=== PATIENT | female | born 1995 | race African-American/Black ===

== ENCOUNTER 2018-01-23 23:49 | Emergency (ER) | payer OTHER, SELFPAY ==
[2018-01-24 00:40] VITALS: BP 126/92; PULSE 77; RESP 18; TEMP 36.7; O2SAT 99
--- NOTE | 2018-01-24 03:20 | ED_ITS ---
HPI - Extremity Problem General Chief complaint: Extremity Problem,Nontraumatic Stated complaint: HAVING ARTHRITIS FLARE UP Time Seen by Provider: 01/24/18 03:07 Source: patient Mode of arrival: ambulatory Limitations: no limitations History of Present Illness HPI Narrative: patient is a 22-year-old female who presents with bilateral knee pain and joint swelling. She does have a history rheumatoid arthritis she takes her medications regularly. She has been having a flare for about the last week. Her tapering machine operator started her on prednisone she took 2 doses at 7: 00 a.m. 2 days in a row and was unable to sleep. It sounds as though she has a problem with insomnia as is an takes Ambien on a regular basis however she was not able sleep despite her Ambien. She has not had any fever. She did take an oxycodone to help with pain and till let her sleep. She denies being on any pain contract she does not like the way pain medication makes her feel. MD Complaint: extremity pain Related Data Home Medications Medication Instructions Recorded Confirmed folic acid 5 mg PO QPM #0 04/07/17 methotrexate sodium 6 tab PO QWEEKTH #0 04/07/17 metoprolol succinate [Toprol XL] 50 mg PO QPM #0 04/07/17 norethindrone ac-eth estradiol 1 tab PO QPM #0 04/07/17 [Microgestin 1.5/30 (21)] piroxicam 20 mg PO QPM #0 04/07/17 bupropion HCl [Wellbutrin SR] 100 mg PO DAILY 01/24/18 01/24/18 buspirone 15 mg PO BID 01/24/18 01/24/18 tofacitinib [Xeljanz XR] 11 mg PO DAILY 01/24/18 01/24/18 zolpidem [Ambien] 10 mg PO BEDTIME PRN 01/24/18 01/24/18 Previous Rx's Medication Instructions Recorded hydrocodone-acetaminophen [[place]] 1 - 2 tab PO Q6HP PRN #12 tab 04/07/17 Allergies Allergy/AdvReac Type Severity Reaction Status Date / Time tioconazole Allergy Unknown Unverified 10/12/17 12:26 [From MONISTAT 1 (TIOCONAZOLE)] prednisone AdvReac Vomiting Verified 01/24/18 00:36 Review of Systems Review of Systems GENERAL: Denies chills, fatigue, malaise, fever, sweats, travel HEENT: Denies sinus pain, ear pain, sore throat, difficulty swallowing, neck pain RESPIRATORY: Denies dyspnea, cough, wheezing, hemoptysis, sputum. CARDIOVASCULAR: Denies chest pain, palpitations, orthopnea, edema GASTROINTESTINAL: Denies nausea, vomiting, abdominal pain, diarrhea, constipation, melena. : Denies dysuria, frequency, incontinence, hematuria, urinary retention, flank pain. MUSCULOSKELETAL: See HPI SKIN: No rash, no erythema, no pruritus NEUROLOGIC: Denies weakness, dizziness, headache, numbness, change in speech, confusion PSYCHIATRIC: No concerning psychosocial issues. 12 point review of systems is negative except for those stated above and HPI Exam Initial Vital Signs Initial Vital Signs: Vital Signs Temperature 98.0 F 01/24/18 00:40 Pulse Rate 77 01/24/18 00:40 Respiratory Rate 18 01/24/18 00:40 Blood Pressure 126/92 H 01/24/18 00:40 Pulse Oximetry 99 01/24/18 00:40 GENERAL: Well-appearing, well-nourished and in no acute distress. CARDIOVASCULAR: peripheral pulses in tact, cap refill <2 sec RESPIRATORY: No respiratory distress, speaks in full sentences without difficulty [ABDOMEN: Soft, nontender, no guarding or rebound] EXTREMITIES: Normal range of motion, no clubbing or edema. Neurovascularly intact moving all extremities without difficulty minimal swelling appreciated in knees or ankles. No erythema. Neurovascular intact NEUROLOGICAL: Cranial nerves II through XII grossly intact. Normal gait and speech. SKIN: Warm, dry, no petechiae, no rashes or lesions. Course Orders Ordered: Discontinued Medications Oxycodone/Acetaminophen (Endocet 5/325 Prepack) 1 bottle [facility] ONE Stop: 01/24/18 03:31 Last Admin: 01/24/18 03:38 Dose: 1 bottle Vital Signs - 8 hr 01/24/18 00:40 01/24/18 03:42 Temperature 98.0 F Pulse Rate 77 75 Respiratory Rate 18 18 Blood Pressure 126/92 H 120/87 H Pulse Oximetry 99 98 Discharge Plan Departure Patient Disposition: Home, Self-Care Clinical Impression: Rheumatoid arthritis Discharge Date/Time: 01/24/18 03:42 Interventions: ED Discharge Assessment Last Done: 01/24/18 03:42 Instructions: Rheumatoid Arthritis Activity Restrictions/Additional Instructions: *You have been diagnosed with rheumatoid arthritis *What to do: *Continue to take medications as directed - 1 Percocet every 6 hr if needed for severe pain *Follow up with your primary care provider in 2-3 days, follow up with her tapering machine operator for further instructions *Return to ER if you should have any new, worsening or concerning symptoms CONTROLLED SUBSTANCE DISCHARGE (Narcotoic/benzodiazepine/Flexeril/Phenergan) 1. You have been prescribed narcotic medications, it does have acetaminophen/ Tylenol/paracetamol in it so do not take extra Tylenol or Tylenol containing products 2. Please understand that we cannot provide further refills of narcotics, benzodiazepines or controlled substances through the ED and her pain management will need to be through your provider. 3. While on these medications you cannot drive or operate heavy machinery. 4. You cannot sign legal documents or perform any duties such as this. 5. As long as you're taking opiate pain medications he should also be taking a stool softener such as Colace, Dulcolax, MiraLAX or prune juice, to help avoid constipation. Prescriptions: No Action folic acid 1 MG tablet 5 mg PO QPM Qty: 0 RF: 0 piroxicam 20 MG capsule 20 mg PO QPM Qty: 0 RF: 0 norethindrone ac-eth estradiol [Microgestin 1.5/30 (21)] 1.5 MG/30 MCG tablet 1 tab PO QPM Qty: 0 RF: 0 metoprolol succinate [Toprol XL] 50 MG tablet extended release 24 hr 50 mg PO QPM Qty: 0 RF: 0 methotrexate sodium 2.5 MG tablet 6 tab PO QWEEKTH Qty: 0 RF: 0 hydrocodone-acetaminophen [[place]] 5 MG/325 MG tablet 1 - 2 tab PO Q6HP PRNQty: 12 RF: 0 bupropion HCl [Wellbutrin SR] 100 mg Tablet Extended Release 12 Hr 100 mg PO DAILY RF: 0 zolpidem [Ambien] 10 mg Tablet 10 mg PO BEDTIME PRN (Reason: Insomnia) RF: 0 buspirone 15 mg Tablet 15 mg PO BID RF: 0 tofacitinib [Xeljanz XR] 11 mg Tablet Extended Release 24 Hr 11 mg PO DAILY RF: 0 Referrals: Rebecca Khan MD [Primary Care Provider] -
[2018-01-24] MEDS: OXYCODONE/APAP 5/325 PREPACK 1 BOTTLE MISC (03:38)
[2018-01-24 03:42] VITALS: BP 120/87; PULSE 75; RESP 18; O2SAT 98
== END 2018-01-24 03:42 | disposition home or self-care (01) ==
PROVIDERS: Emergency Provider Emergency Medicine; Family Provider Family Medicine; PCP Family Medicine
DX: M06.9 Rheumatoid arthritis, unspecified (principal)
CPT/HCPCS: 99282; 99283

== ENCOUNTER 2018-06-05 10:10 | Emergency (ER) | payer OTHER, SELFPAY ==
[2018-06-05 10:10] VITALS: BP 147/119; PULSE 79; RESP 18; TEMP 36.8; O2SAT 100; BMI 36.0
--- NOTE | 2018-06-05 10:33 | PC.NURSE ---
Tender to palpation along lower thoracic spine and right flank pain. Patient reports burning pain in right hip radiating down to right knee on lateral aspect of thigh. Notes chills freezing cold one episode of vomiting this morning and currently nauseated. Some burning starting last night with urination and has not gone to bathroom today which is not normal for patient. Has had UTI in the past.
--- NOTE | 2018-06-05 10:45 | ED.EXTPRO ---
HPI - Extremity Problem General Chief complaint: Extremity Problem,Nontraumatic Stated complaint: BURNING PAIN FROM HIP TO KNEE,R SIDE Time Seen by Provider: 06/05/18 10:38 Source: patient and old records reviewed Mode of arrival: ambulatory Limitations: no limitations History of Present Illness HPI Narrative: This is a 22-year-old female comes to the emergency department with complaint of right hip and back pain. Patient states that the hip pains been going on for 1-2 weeks, last week was quite bad she took and Percocet which did not make much difference in normally does. Patient states she has known rheumatoid arthritis, she is on methotrexate and peroxicam. Patient states she has had fevers around 100 F, she states she does get joint pain but not typically in the hip and not typically this intense. She is also having some low back pain. She is also having some urinary frequency. She has had some nausea and feeling of vomiting. No abdominal pain, no chest pain and shortness of breath. Patient is not on any steroids currently. Related Data Home Medications Medication Instructions Recorded Confirmed methotrexate sodium 6 tab PO QWEEKTH #0 04/07/17 piroxicam 20 mg PO QPM #0 04/07/17 06/05/18 buspirone 15 mg PO BID 01/24/18 01/24/18 tofacitinib [Xeljanz XR] 11 mg PO DAILY 01/24/18 06/05/18 zolpidem [Ambien] 10 mg PO BEDTIME PRN 01/24/18 06/05/18 clonazepam 1 mg PO QID 06/05/18 06/05/18 escitalopram oxalate 20 mg PO DAILY 06/05/18 06/05/18 folic acid 1 - 3 mg PO DAILY 06/05/18 06/05/18 hydroxyzine pamoate 25 - 50 mg PO PRN PRN 06/05/18 06/05/18 levocetirizine 5 mg PO QPM 06/05/18 06/05/18 metoprolol succinate 50 mg PO DAILY 06/05/18 06/05/18 norethindrone-ethin estradiol 1 tab PO DAILY 06/05/18 06/05/18 [Nortrel (28)] Previous Rx's Medication Instructions Recorded hydrocodone-acetaminophen [[place]] 1 - 2 tab PO Q6HP PRN #12 tab 04/07/17 oxycodone-acetaminophen [Percocet] 1 tab PO Q4-6H PRN #5 tab 06/05/18 prednisone 40 mg PO DAILY #8 tab 06/05/18 Allergies Allergy/AdvReac Type Severity Reaction Status Date / Time tioconazole Allergy Intermediate Rash Verified 06/05/18 10:28 [From Monistat 1 (tioconazole)] Review of Systems Review of Systems All systems reviewed & are unremarkable except as noted in HPI and below Constitutional Reports fever(s) (101 F with T-max) Cardiovascular Denies chest pain and Denies dyspnea Respiratory Denies cough and Denies dyspnea Gastrointestinal Gastrointestinal: Denies abdominal pain, Denies change in bowel habits, Denies diarrhea, Reports nausea and Reports vomiting Genitourinary Denies hematuria, Reports urinary frequency, Denies dysuria, Denies pelvic pain, Denies flank pain, Denies urinary incontinence and Denies urinary urgency Musculoskeletal Reports as per HPI, Reports back pain, Reports arthralgias (Right hip) and Denies joint swelling PFSH Medical History Rheumatoid arthritis (Acute) Social History Smoking Status: Never smoker Exam Narrative Exam Narrative: GENERAL: Alert and oriented x three, well-nourished, well-appearing female in mild distress. HEENT: Head normocephalic, atraumatic, EOMI, pupils reactive, face symmetric, moist mucous membranes NECK: Supple, full range of motion CARDIOVASCULAR: Regular rate and rhythm without murmurs, rubs or gallops. RESPIRATORY: Breath sounds equal bilaterally, no wheezes rales or rhonchi. ABDOMEN: Soft, nontender. Normoactive bowel sounds all 4 quadrants. No guarding or rebound, rigidity, no mass : No CVA tenderness BACK: No cervical, thoracic or lumbar vertebral point tenderness. Patient has normal range of motion. Patient's gait is not tested. Muscle strength is 5/5 in lower extremities, 2+ dorsalis pedis and tibialis on the right. Patient has normal sensation throughout the lower extremity. Patient has tenderness over the right hip, she has normal motion no swelling or erythema over the joint or lower extremity. EXTREMITIES: Normal range of motion, no clubbing or edema. Neurovascularly intact NEUROLOGICAL: Cranial nerves II through XII grossly intact. Moving all extremities SKIN: Warm, dry, no petechiae, no rashes or lesions. Initial Vital Signs Initial Vital Signs: Vital Signs Temperature 98.3 F 06/05/18 10:10 Pulse Rate 79 06/05/18 10:10 Respiratory Rate 18 06/05/18 10:10 Blood Pressure 147/119 H 06/05/18 10:10 Pulse Oximetry 100 06/05/18 10:10 Course Orders Ordered: ED Orders 06/05/18 11:13 C-Reactive Protein Quant Stat Complete Blood Count AUTO DIFF Stat Comprehensive Metabolic Panel Stat Erythrocyte Sedimentation Rate Stat Procalcitonin Stat Discontinued Medications Ketorolac Tromethamine (Toradol) 30 mg IV NOW ONE Stop: 06/05/18 10:49 Last Admin: 06/05/18 11:04 Dose: 30 mg Morphine Sulfate (Morphine) 2 mg IV NOW ONE Stop: 06/05/18 12:10 Last Admin: 06/05/18 12:45 Dose: Not Given Morphine Sulfate (Morphine) 4 mg IM NOW ONE Stop: 06/05/18 12:17 Last Admin: 06/05/18 12:19 Dose: 4 mg Ondansetron HCl (Zofran) 4 mg IV NOW ONE Stop: 06/05/18 10:49 Last Admin: 06/05/18 11:01 Dose: 4 mg Prednisone (Deltasone) 60 mg PO NOW ONE Stop: 06/05/18 12:10 Last Admin: 06/05/18 12:18 Dose: 60 mg Vital Signs - 8 hr 06/05/18 10:10 06/05/18 12:02 Temperature 98.3 F Pulse Rate 79 71 Respiratory Rate 18 17 Blood Pressure 147/119 H Blood Pressure [Left Arm] 118/78 Pulse Oximetry 100 100 MDM - Extremity (Nontraumatic) Lab Data Attestation: I reviewed the patient's lab results. Result diagrams: 06/05/18 11:13 06/05/18 11:13 Lab Results 06/05/18 06/05/18 06/05/18 Range/Units 11:13 11:13 11:13 WBC 5.6 (4.5-11.0) X10^3/uL RBC 4.79 (4.0-5.2) X10^6/uL Hgb 15.0 (12.0-16.0) g/dL Hct 44.1 (36-46) % MCV 92.1 (80-100) fL MCH 31.2 (26-34) PG MCHC 33.9 (30-36) % RDW 12.8 (11.6-14.8) % Plt Count 274 (150-400) X10^3/uL Neut % (Auto) 61.3 (50-75) % Lymph % (Auto) 31.6 (25-40) % [place] % (Auto) 5.7 (3-14) % Eos % (Auto) 1.0 L (2-4) % Baso % (Auto) 0.4 (0-2) % Neut # (Auto) 3400 (8888-8091) /uL ESR 2 (0-20) MM/HR Sodium 143 (137-145) mmol/L Potassium 4.2 (3.4-5.1) mmol/L Chloride 105 (98-107) mmol/L Carbon Dioxide 22 (22-32) mmol/L BUN 16 (7-17) mg/dL Creatinine 0.60 (0.52-1.04) mg/dL Estimated GFR > 60.0 (>60) mL/min BUN/Creatinine Ratio 26.7 H (6-22) Glucose 93 (70-100) mg/dL Calcium 9.4 (8.4-10.2) mg/dL Total Bilirubin 0.5 (0.2-1.3) mg/dL AST 28 (14-36) IU/L ALT 39 (9-52) IU/L Alkaline Phosphatase 38 (38-126) U/L C-Reactive Protein < 0.5 (<1.0) mg/dL Total Protein 7.7 (6.3-8.2) g/dL Albumin 4.5 (3.5-5.0) g/dL Globulin 3.2 (1.7-4.1) g/dL Albumin/Globulin Ratio 1.4 (1.0-2.8) Procalcitonin < 0.05 (<0.5) ng/mL Point of Care Testing Test Results Negative Urine Dip Bedside Urine Glucose Negative Bedside Urine Bilirubin - Negative Bedside Urine Ketone - Negative Urine Specific [place] 1.030 Bedside Urine Occult Blood - Negative Bedside Urine pH 6.0 Bedside Urine Protein - Negative Bedside Urine Urobilinogen - Negative Bedside Urine Nitrite - Negative Bedside Urine Leukocytes - Negative Esterase MDM Narrative Medical decision making narrative: Patient stated she had fevers of 101 F so did do basic lab testing although I did have any physical exam findings consistent with a septic arthritis but patient would be immune suppressed with the methotrexate. Patient's CBC, CRP and procalcitonin are negative. She does have a history of rheumatoid arthritis and although she states this is not her normal location she has 1 prior visit with hip pain for same reasons. Patient had some improvement but minimal with the Toradol, she is no longer nauseated. Discussed findings and plan to continue methotrexate her piroxicam give her a few tablets of Percocet for breakthrough pain and steroids. Her IV was pulled out while she was here so we will given IM dose of morphine Um and oral prednisone. Discharge Plan Departure Patient Disposition: Home Clinical Impression: Hip pain, right Discharge Date/Time: 06/05/18 12:48 Interventions: ED Discharge Assessment Last Done: 06/05/18 12:46 Instructions: Help for Hip Pain Activity Restrictions/Additional Instructions: Follow up with your primary care/rhuematology provider in the next week for recheck. Take steroids until gone. Continue your home medications of methotrexate and piroxicam. You may take 1-2 tablets of Percocet every 6 hr as needed for pain. Return to the emergency department for persistent fevers, redness or swelling of your hip back, new weakness, new numbness, inability to lift or move your leg or other new or concerning symptoms. Prescriptions: New prednisone 20 mg tablet 40 mg PO DAILY Qty: 8 RF: 0 oxycodone-acetaminophen [Percocet] 5-325 mg tablet 1 tab PO Q4-6H PRN (Reason: pain) Qty: 5 RF: 0 No Action piroxicam 20 MG capsule 20 mg PO QPM Qty: 0 RF: 0 methotrexate sodium 2.5 MG tablet 6 tab PO QWEEKTH Qty: 0 RF: 0 hydrocodone-acetaminophen [[place]] 5 MG/325 MG tablet 1 - 2 tab PO Q6HP PRNQty: 12 RF: 0 zolpidem [Ambien] 10 mg Tablet 10 mg PO BEDTIME PRN (Reason: Insomnia) RF: 0 buspirone 15 mg Tablet 15 mg PO BID RF: 0 tofacitinib [Xeljanz XR] 11 mg Tablet Extended Release 24 Hr 11 mg PO DAILY RF: 0 clonazepam 1 mg tablet 1 mg PO QID RF: 0 folic acid 1 mg tablet 1 - 3 mg PO DAILY RF: 0 metoprolol succinate 25 mg tablet extended release 24 hr 50 mg PO DAILY RF: 0 norethindrone-ethin estradiol [Nortrel ()] 1-35 mg-mcg tablet 1 tab PO DAILY RF: 0 hydroxyzine pamoate 25 mg capsule 25 - 50 mg PO PRN PRN (Reason: panic attacks) RF: 0 escitalopram oxalate 20 mg tablet 20 mg PO DAILY RF: 0 levocetirizine 5 mg tablet 5 mg PO QPM RF: 0 Referrals: Rebecca Khan MD [Primary Care Provider] - Stand Alone Forms: Work/School Restrictions
[2018-06-05] MEDS: ONDANSETRON 4 MG/2 ML INJ IV (11:01)
[2018-06-05] MEDS: KETOROLAC 30 MG/ML VIAL IV (11:04)
[2018-06-05 11:24] LABS: Add Manual Diff / Slide Review NO; Basophils Percent Auto 0.4 % (0-2); Hematocrit 44.1 % (36-46); Lymphocytes Percent Auto 31.6 % (25-40); Mean Corpuscular HGB Conc 33.9 % (30-36); Mean Corpuscular Hemoglobin 31.2 PG (26-34); Mean Corpuscular Volume 92.1 fL (80-100); Monocytes Percent Auto 5.7 % (3-14); Neutrophils Absolute Auto 3400 /uL (3000-5900); Neutrophils Percent Auto 61.3 % (50-75); Platelet Count 274 X10^3/uL (150-400); Red Blood Cell Count 4.79 X10^6/uL (4.0-5.2); Red Cell Distribution Width 12.8 % (11.6-14.8); White Blood Cell Count 5.6 X10^3/uL (4.5-11.0)
[2018-06-05 11:40] LABS: Alanine Aminotransferase 39 IU/L (9-52); Albumin 4.5 g/dL (3.5-5.0); Albumin Globulin Ratio 1.4 (1.0-2.8); Alkaline Phosphatase 38 U/L (38-126); Aspartate Aminotransferase 28 IU/L (14-36); BUN Creatinine Ratio 26.7 (6-22); Bilirubin Total 0.5 mg/dL (0.2-1.3); Blood Urea Nitrogen 16 mg/dL (7-17); Calcium 9.4 mg/dL (8.4-10.2); Carbon Dioxide 22 mmol/L (22-32); Chloride 105 mmol/L (98-107); Estimated Glomerular Filt Rate > 60.0 mL/min (>60); Globulin 3.2 g/dL (1.7-4.1); Glucose 93 mg/dL (70-100); HEMOLYSIS 20 (0-50); Potassium 4.2 mmol/L (3.4-5.1); Sodium 143 mmol/L (137-145); Total Protein 7.7 g/dL (6.3-8.2)
[2018-06-05 11:41] LABS: C-Reactive Protein Quant < 0.5 mg/dL (<1.0)
[2018-06-05 11:53] LABS: Procalcitonin < 0.05 ng/mL (<0.5)
[2018-06-05 12:02] VITALS: BP 118/78; PULSE 71; RESP 17; O2SAT 100
[2018-06-05 12:03] LABS: Erythrocyte Sedimentation Rate 2 MM/HR (0-20)
[2018-06-05] MEDS: predniSONE 20 MG TABLET 60 MG PO (12:18)
[2018-06-05] MEDS: MORPHINE 4 MG/ML INJ IM (12:19)
== END 2018-06-05 12:48 | disposition home or self-care (01) ==
PROVIDERS: Emergency Provider Emergency Medicine; Family Provider Family Medicine; PCP Family Medicine
DX: M25.551 Pain in right hip (principal)
CPT/HCPCS: 36591; 80053; 81003; 81025; 84145; 85025; 85651; 86140; 96372; 96374; 96375; 99283; 99284; J1885; J2270; J2405

== ENCOUNTER → 2018-06-14 15:44 | Outpatient (CLI) | payer OTHER, SELFPAY ==
--- NOTE | 2018-06-14 | DI.CT.S_ITS ---
PROCEDURE: CT ABDOMEN PELVIS W CON INDICATIONS: PELVIC PAIN,Multiple endocrine neoplasia TECHNIQUE: After the administration of oral and intravenous contrast, 5 mm thick sections acquired from the diaphragms to the symphysis. 5 mm thick coronal and sagittal reformats were performed. For radiation dose reduction, the following was used: automated exposure control, adjustment of mA and/or kV according to patient size. COMPARISON: [facility], CT, ABDOMEN/PELVIS WITH CONTRAST, 12/24/2014, 22:56. FINDINGS: Image quality: Excellent. ABDOMEN: Lung bases: Lung bases are clear. Heart size is normal. Solid organs: Liver is normal in size and enhancement. Gallbladder is within normal limits. Biliary system is non-dilated. Pancreas enhances normally. Spleen is normal in size and enhancement. No adrenal nodules. Kidneys are normal in size and enhancement, without hydronephrosis. Peritoneum and bowel: A small hiatal hernia is seen. Mild fecal stasis throughout the colon is noted. Stomach, small bowel, and colon loops are normal in caliber and wall thickness. No free fluid or air. Nodes and vessels: No retroperitoneal or mesenteric adenopathy. Aorta and inferior vena cava are normal in caliber. Miscellaneous: No ventral hernias. PELVIS: Genitourinary: Bladder wall thickness is normal. No gross abnormality is seen in uterus and bilateral adnexa Miscellaneous: No inguinal hernias or adenopathy. Bones: No suspicious bony lesions. No vertebral body compression fractures. IMPRESSION: No finding to explain patient's clinical symptoms. No acute inflammatory process within the abdomen or pelvis. Dictated by: Stephen Tan M.D. on 06/15/2018 at 8:55 Approved by: Stephen Tan M.D. on 06/15/2018 at 9:04
--- NOTE | 2018-06-14 | DI.MRI.S_ITS ---
PROCEDURE: MR ABDOMEN WO/W CON INDICATIONS: Pelvic pain and history of Multiple endocrine neoplasia TECHNIQUE: Coronal HASTE, axial 2D FLASH in- and [id number]; axial breath-hold T2 FSE. Dynamic axial VIBE during the administration of contrast; post-contrast coronal VIBE or 2D FLASH with fat saturation from the hepatic dome to the iliac crests. Optional diffusion weighted imaging and ADC may be performed. COMPARISON: [facility], MR, PELVIS WITHOUT CONTRAST, 07/03/2015, 9:13. [facility], CT, CT ABDOMEN PELVIS W CON, 06/14/2018, 17:18. FINDINGS: Image quality: Excellent. Lung bases: No basal pleural effusions. Heart size is normal. Solid organs: The liver demonstrates no focal hepatic lesions the gallbladder appears within normal limits without gallstones. Biliary system is non dilated. Pancreas is normal in morphology without a discrete pancreatic mass. Spleen is normal in size and enhancement. No adrenal nodules or mass lesions. Both kidneys demonstrate normal size and enhancement, without hydronephrosis. Nodes and vessels: No retroperitoneal or mesenteric adenopathy by size criteria. Aorta and inferior vena cava are normal in size. Bowel and peritoneum: Visualized bowel loops are normal in caliber. No free fluid. Bones and soft tissues: No ventral hernias. Bone marrow is normal in overall signal. IMPRESSION: 1. No acute intra-abdominal abnormality identified. 2. No suspicious intra-abdominal mass lesions. Dictated by: Laureano Jessica M.D. on 06/15/2018 at 13:42 Approved by: Laureano Jessica M.D. on 06/15/2018 at 13:51
== END ==
PROVIDERS: Family Provider Family Medicine; PCP Family Medicine; Visit Provider Internal Medicine Endocrinology, Diabetes & Metabolism
DX: E31.21 Multiple endocrine neoplasia [MEN] type I (principal); R10.2 Pelvic and perineal pain
CPT/HCPCS: 74177; 74183; A9579; Q9967

== ENCOUNTER 2018-08-08 17:05 | Emergency (ER) | payer OTHER, SELFPAY ==
[2018-08-08 17:08] VITALS: BP 137/91; PULSE 92; RESP 18; TEMP 36.8; O2SAT 99; BMI 38.7
--- NOTE | 2018-08-08 18:20 | DI.RAD.S_ITS ---
PROCEDURE: XR CHEST 2V INDICATIONS: cough TECHNIQUE: 2 views of the chest were acquired. COMPARISON: [facility], , CHEST 2 VIEW, 04/07/2017, 18:58. FINDINGS: Surgical changes and devices: None. Lungs and pleura: Lungs are clear. No pleural effusions or pneumothorax. Mediastinum: Mediastinal contours are normal. Heart size is normal. Bones and chest wall: No suspicious bony abnormalities. Soft tissues appear unremarkable. IMPRESSION: No acute process. Dictated by: Daniel Fuentes M.D. on 08/08/2018 at 18:45 Approved by: Daniel Fuentes M.D. on 08/08/2018 at 18:45
[2018-08-08 18:26] VITALS: BP 115/74; PULSE 79; RESP 14; O2SAT 100
--- NOTE | 2018-08-08 19:01 | ED_ITS ---
HPI - URI/Sore Throat General Chief Complaint: Upper Respiratory Symptoms Stated Complaint: SOMETHING WITH LUNGS Time Seen by Provider: 08/08/18 18:35 Source: patient Mode of arrival: ambulatory Limitations: no limitations History of Present Illness HPI Narrative: patient is a 22-year-old female with history of rheumatoid arthritis presenting with fever body aches and cough ongoing for about 1 week. She states she has fever at night of 104-105 and during the day of 100.4-100.5. she is currently afebrile. She says that she feels like she is breathing in stand every time she takes a deep breath she has coughing fits. She sometimes coughs up blood-streaked sputum. She denies any cup fulls of sputum. She also is having daily frequent bloody noses. Patient was prescribed a Z-Jagdish by her PCP for upper respiratory like symptoms. She has finished this and overall does not feel any better. MD Complaint: fever, cough and nasal congestion Related Data Home Medications Medication Instructions Recorded Confirmed methotrexate sodium 6 tab PO QWEEKTH #0 04/07/17 piroxicam 20 mg PO QPM #0 04/07/17 08/08/18 buspirone 15 mg PO BID 01/24/18 01/24/18 tofacitinib [Xeljanz XR] 11 mg PO DAILY 01/24/18 08/08/18 zolpidem [Ambien] 10 mg PO BEDTIME PRN 01/24/18 08/08/18 clonazepam 1 mg PO QID 06/05/18 08/08/18 escitalopram oxalate 20 mg PO DAILY 06/05/18 08/08/18 folic acid 1 - 3 mg PO DAILY 06/05/18 06/05/18 hydroxyzine pamoate 25 - 50 mg PO PRN PRN 06/05/18 08/08/18 levocetirizine 5 mg PO QPM 06/05/18 08/08/18 metoprolol succinate 50 mg PO DAILY 06/05/18 08/08/18 norethindrone-ethin estradiol 1 tab PO DAILY 06/05/18 06/05/18 [Nortrel (28)] methotrexate (PF) [Rasuvo (PF)] 1 dose SUBCUT DIRECTED 08/08/18 08/08/18 Previous Rx's Medication Instructions Recorded hydrocodone-acetaminophen [Whiting] 1 - 2 tab PO Q6HP PRN #12 tab 04/07/17 oxycodone-acetaminophen [Percocet] 1 tab PO Q4-6H PRN #5 tab 06/05/18 prednisone 40 mg PO DAILY #8 tab 06/05/18 Allergies Allergy/AdvReac Type Severity Reaction Status Date / Time tioconazole Allergy Intermediate Rash Verified 08/08/18 17:08 [From Monistat 1 (tioconazole)] Review of Systems Review of Systems ROS Unobtainable: All systems reviewed & are unremarkable except as noted in HPI and below Constitutional Reports fatigue and Reports fever(s) Eyes Denies change in vision, Denies eye discharge, Denies irritation and Denies loss of vision Cardiovascular Denies chest pain, Denies irregular heart rhythm, Denies lightheadedness, Denies palpitations and Denies orthopnea Respiratory Reports as per HPI, Reports cough, Denies hemoptysis, Reports pain on inspiration and Reports pain with cough Gastrointestinal Gastrointestinal: Denies abdominal pain, Denies change in bowel habits, Denies diarrhea, Denies nausea and Denies vomiting Genitourinary Denies hematuria, Denies flank pain, Denies urinary incontinence and Denies urinary urgency Musculoskeletal Denies back pain, Denies muscle weakness, Denies numbness and Denies tingling Integumentary/Breasts Denies pruritus, Denies erythema, Denies rash and Denies wounds Neurologic Denies loss of vision, Denies numbness and Denies tingling Endocrine Reports fatigue and Denies palpitations PFSH Medical History Rheumatoid arthritis (Acute) Social History Smoking Status: Never smoker Social History Smoking Status: Never smoker Exam Initial Vital Signs Initial Vital Signs: Vital Signs Temperature 98.2 F 08/08/18 17:08 Pulse Rate 92 H 08/08/18 17:08 Respiratory Rate 18 08/08/18 17:08 Blood Pressure 137/91 H 08/08/18 17:08 Pulse Oximetry 99 08/08/18 17:08 GENERAL: alert well-appearing young female in no acute distress HEENT: Head atraumatic,EOMI, pupils reactive, left naris epistaxis easily controlled with pressure CARDIOVASCULAR: Regular rate and rhythm without murmurs, rubs or gallops. RESPIRATORY: Breath sounds equal bilaterally, no wheezes rales or rhonchi. Coughing with deep breathing no respiratory distress ABDOMEN: Soft, nontender. Normoactive bowel sounds all 4 quadrants. No guarding or rebound. EXTREMITIES: Normal range of motion, no clubbing or edema. Neurovascularly intact NEUROLOGICAL: Alert and oriented x4.Normal gait and speech. SKIN: Warm, dry, no laceration, no petechiae, no rashes or lesions. Course Orders Ordered: ED Orders 08/08/18 18:20 XR chest 2V Stat 08/08/18 19:25 Basic Metabolic Panel Stat Complete Blood Count AUTO DIFF Stat Discontinued Medications Acetaminophen (Tylenol) 650 mg PO NOW ONE Stop: 08/08/18 19:59 Last Admin: 08/08/18 20:15 Dose: 650 mg Albuterol (Ventolin) 2.5 mg INH NOW ONE Stop: 08/08/18 19:07 Last Admin: 08/08/18 19:26 Dose: 2.5 mg Albuterol (Ventolin Hfa Prepack) 1 box MISC SEEINSTR ONE Stop: 08/08/18 19:59 Last Admin: 08/08/18 20:15 Dose: 1 box Vital Signs - 8 hr 08/08/18 17:08 08/08/18 18:26 08/08/18 19:29 Temperature 98.2 F Pulse Rate 92 H 79 Respiratory Rate 18 14 Blood Pressure 137/91 H Blood Pressure [Left Arm] 115/74 Pulse Oximetry 99 100 100 08/08/18 19:55 Temperature Pulse Rate 92 H Respiratory Rate 15 Blood Pressure Blood Pressure [Left Arm] 137/116 H Pulse Oximetry 100 MDM - URI/Sore Throat Lab Data Attestation: I reviewed the patient's lab results. Result diagrams: 08/08/18 19:25 08/08/18 19:25 Lab Results 08/08/18 08/08/18 Range/Units 19:25 19:25 WBC 5.9 (4.5-11.0) X10^3/uL RBC 4.55 (4.0-5.2) X10^6/uL Hgb 14.2 (12.0-16.0) g/dL Hct 41.3 (36-46) % MCV 90.7 (80-100) fL MCH 31.3 (26-34) PG MCHC 34.5 (30-36) % RDW 13.3 (11.6-14.8) % Plt Count 299 (150-400) X10^3/uL Neut % (Auto) 59.4 (50-75) % Lymph % (Auto) 28.9 (25-40) % [place] % (Auto) 8.3 (3-14) % Eos % (Auto) 2.9 (2-4) % Baso % (Auto) 0.5 (0-2) % Neut # (Auto) 3500 (4910-4324) /uL Lymph # (Auto) 1700 (7877-4748) /uL [place] # (Auto) 500 (0-900) /uL Eos # (Auto) 200 (0-450) /uL Baso # (Auto) 0 (0-100) /uL Sodium 136 L (137-145) mmol/L Potassium 3.9 (3.4-5.1) mmol/L Chloride 101 (98-107) mmol/L Carbon Dioxide 28 (22-32) mmol/L BUN 17 (7-17) mg/dL Creatinine 0.70 (0.52-1.04) mg/dL Estimated GFR > 60.0 (>60) mL/min BUN/Creatinine Ratio 24.3 H (6-22) Glucose 106 H (70-100) mg/dL Calcium 9.2 (8.4-10.2) mg/dL Imaging Data Chest x-ray: Radiologist's impression: PROCEDURE: XR CHEST 2V INDICATIONS: cough TECHNIQUE: 2 views of the chest were acquired. COMPARISON: [facility], , CHEST 2 VIEW, 04/07/2017, 18:58. FINDINGS: Surgical changes and devices: None. Lungs and pleura: Lungs are clear. No pleural effusions or pneumothorax. Mediastinum: Mediastinal contours are normal. Heart size is normal. Bones and chest wall: No suspicious bony abnormalities. Soft tissues appear unremarkable. IMPRESSION: No acute process. Dictated by: Daniel Fuentes M.D. on 08/08/2018 at 18:45 MDM Narrative Medical decision making narrative: Patient's breathing did actually improve after albuterol. Although she still is complaining of some chest discomfort. She is not hypoxic. She actually does have inhalers at home with a spacer although her albuterol recently . She is not neutropenic her blood work within normal limits no sign of pneumonia. She has been having symptoms ongoing for 1 week she is of treatment range even if she had influenza. At this time I think sinus symptoms consistent with viral syndrome. Discharge Plan Departure Patient Disposition: Home Clinical Impression: Bronchitis Discharge Date/Time: 08/08/18 20:36 Interventions: ED Discharge Assessment Last Done: 08/08/18 20:34 Instructions: Acute Bronchitis Activity Restrictions/Additional Instructions: *You have been diagnosed with bronchitis *What to do: the at this time no indication for any Antibiotics. rest, hydrate. X ray negative for pneumonia *Continue to take medications as directed recommend limiting your Tylenol intake however if you should need a little extra during this time, you should be okay just have her liver enzymes rechecked 650 mg every 6 hr if needed for pain or fever. Do not exceed more than 3, 000 grams in 24 - albuterol 1-2 puffs every 4 hr if needed for coughing episodes or chest tightness *Follow up with your primary care provider in 2-3 days *Return to ER if you should have increased difficulty breathing, worsening chest pain, or any new, worsening or concerning symptoms Prescriptions: No Action piroxicam 20 MG capsule 20 mg PO QPM Qty: 0 RF: 0 methotrexate sodium 2.5 MG tablet 6 tab PO QWEEKTH Qty: 0 RF: 0 hydrocodone-acetaminophen [Whiting] 5 MG/325 MG tablet 1 - 2 tab PO Q6HP PRNQty: 12 RF: 0 zolpidem [Ambien] 10 mg Tablet 10 mg PO BEDTIME PRN (Reason: Insomnia) RF: 0 buspirone 15 mg Tablet 15 mg PO BID RF: 0 tofacitinib [Xeljanz XR] 11 mg Tablet Extended Release 24 Hr 11 mg PO DAILY RF: 0 clonazepam 1 mg tablet 1 mg PO QID RF: 0 folic acid 1 mg tablet 1 - 3 mg PO DAILY RF: 0 metoprolol succinate 25 mg tablet extended release 24 hr 50 mg PO DAILY RF: 0 norethindrone-ethin estradiol [Nortrel (28)] 1-35 mg-mcg tablet 1 tab PO DAILY RF: 0 hydroxyzine pamoate 25 mg capsule 25 - 50 mg PO PRN PRN (Reason: panic attacks) RF: 0 escitalopram oxalate 20 mg tablet 20 mg PO DAILY RF: 0 levocetirizine 5 mg tablet 5 mg PO QPM RF: 0 prednisone 20 mg tablet 40 mg PO DAILY Qty: 8 RF: 0 oxycodone-acetaminophen [Percocet] 5-325 mg tablet 1 tab PO Q4-6H PRN (Reason: pain) Qty: 5 RF: 0 methotrexate (PF) [Rasuvo (PF)] 25 mg/0.5 mL auto-injector 1 dose subcut DIRECTED RF: 0 Referrals: Rebecca Khan MD [Primary Care Provider] -
[2018-08-08] MEDS: ALBUTEROL 2.5 MG/3 ML NEB (ADULT) INH (19:26)
[2018-08-08 19:29] VITALS: O2SAT 100
[2018-08-08 19:31] LABS: Add Manual Diff / Slide Review NO; Basophils Absolute Auto 0 /uL (0-100); Basophils Percent Auto 0.5 % (0-2); Eosinophils Absolute Auto 200 /uL (0-450); Eosinophils Percent Auto 2.9 % (2-4); Hematocrit 41.3 % (36-46); Hemoglobin 14.2 g/dL (12.0-16.0); Lymphocytes Absolute Auto 1700 /uL (1100-4500); Lymphocytes Percent Auto 28.9 % (25-40); Mean Corpuscular HGB Conc 34.5 % (30-36); Mean Corpuscular Hemoglobin 31.3 PG (26-34); Mean Corpuscular Volume 90.7 fL (80-100); Monocytes Absolute Auto 500 /uL (0-900); Monocytes Percent Auto 8.3 % (3-14); Neutrophils Absolute Auto 3500 /uL (1500-7000); Neutrophils Percent Auto 59.4 % (50-75); Platelet Count 299 X10^3/uL (150-400); Red Blood Cell Count 4.55 X10^6/uL (4.0-5.2); Red Cell Distribution Width 13.3 % (11.6-14.8); White Blood Cell Count 5.9 X10^3/uL (4.5-11.0)
[2018-08-08 19:55] VITALS: BP 137/116; PULSE 92; RESP 15; O2SAT 100
[2018-08-08 19:57] LABS: BUN Creatinine Ratio 24.3 (6-22); Blood Urea Nitrogen 17 mg/dL (7-17); Calcium 9.2 mg/dL (8.4-10.2); Carbon Dioxide 28 mmol/L (22-32); Chloride 101 mmol/L (98-107); Estimated Glomerular Filt Rate > 60.0 mL/min (>60); Glucose 106 mg/dL (70-100); HEMOLYSIS < 15 (0-50); Potassium 3.9 mmol/L (3.4-5.1); Sodium 136 mmol/L (137-145)
[2018-08-08] MEDS: ALBUTEROL HFA PREPACK 1 BOX MISC (20:15)
[2018-08-08] MEDS: ACETAMINOPHEN 325 MG TABLET 650 MG PO (20:15)
== END 2018-08-08 20:36 | disposition home or self-care (01) ==
PROVIDERS: Emergency Provider Emergency Medicine; Family Provider Family Medicine; PCP Family Medicine
DX: J40 Bronchitis, not specified as acute or chronic (principal)
CPT/HCPCS: 36591; 71046; 80048; 85025; 94640; 99282; 99284; J7613

== ENCOUNTER 2018-09-06 10:28 | Emergency (ER) | payer OTHER, SELFPAY ==
[2018-09-06 10:35] VITALS: BP 125/87; PULSE 77; RESP 18; TEMP 37.1; O2SAT 98; BMI 37.2
--- NOTE | 2018-09-06 11:04 | ED.ABDPAIN ---
HPI - Abdominal Pain General Chief Complaint: Abdominal Pain Stated Complaint: severe lower abdomina pain rt side, spreading Time Seen by Provider: 09/06/18 10:58 Source: patient Mode of arrival: ambulatory Limitations: no limitations History of Present Illness HPI narrative: Patient is a 23-year-old female with a known history of endometriosis. Is currently on control for this. She is here for evaluation of right lower quadrant abdominal pain. She states this is different than her endometriosis pain. She states it is a sharp pain. Started within the past several hours. Had some nausea and vomiting with it. No urinary symptoms. Does have some constipation. No fevers. Related Data Home Medications Medication Instructions Recorded Confirmed piroxicam 20 mg PO DAILY #0 04/07/17 09/06/18 tofacitinib [Xeljanz XR] 11 mg PO QPM 01/24/18 09/06/18 zolpidem [Ambien] 10 mg PO BEDTIME 01/24/18 09/06/18 clonazepam 1 mg PO QID PRN 06/05/18 09/06/18 escitalopram oxalate 20 mg PO QPM 06/05/18 09/06/18 folic acid 1 - 3 mg PO QPM 06/05/18 09/06/18 hydroxyzine pamoate 25 - 50 mg PO PRN PRN 06/05/18 09/06/18 levocetirizine 5 mg PO QPM 06/05/18 09/06/18 metoprolol succinate 50 mg PO QPM 06/05/18 09/06/18 methotrexate (PF) [Rasuvo (PF)] 1 dose SUBCUT FR 08/08/18 09/06/18 norethindrone-ethin estradiol 1 tab PO QPM 09/06/18 09/06/18 [Nortrel 1/35 (28)] oxycodone-acetaminophen 1 tab PO Q6H PRN 09/06/18 09/06/18 Allergies Allergy/AdvReac Type Severity Reaction Status Date / Time tioconazole Allergy Intermediate Rash Verified 09/06/18 10:42 [From Monistat 1 (tioconazole)] Review of Systems Constitutional Denies fever(s) Cardiovascular Denies chest pain and Denies dyspnea Respiratory Denies dyspnea Gastrointestinal Gastrointestinal: Reports abdominal pain, Reports constipation, Reports nausea and Reports vomiting Genitourinary Denies dysuria Musculoskeletal Denies myalgias and Denies arthralgias Integumentary/Breasts Denies rash Neurologic Denies behavioral changes Psychiatric Denies behavioral changes Hematologic/Lymphatic Denies easy bleeding and Denies easy bruising PFSH Medical History Rheumatoid arthritis (Acute) Social History Smoking Status: Never smoker Social History Smoking Status: Never smoker Exam Initial Vital Signs Initial Vital Signs: Vital Signs Temperature 98.7 F 09/06/18 10:35 Pulse Rate 77 09/06/18 10:35 Respiratory Rate 18 09/06/18 10:35 Blood Pressure 125/87 09/06/18 10:35 Pulse Oximetry 98 09/06/18 10:35 Const General: cooperative, healthy appearing, comfortable, well developed, well groomed and No acute distress Orientation: alert, awake and oriented x3 HENMT Head: normal to inspection and normocephalic Resp Effort & Inspection: normal respiratory effort Cardio Rate: regular rate GI Inspection: non-distended Palpation: soft, No firm, guarding and tender (Right lower quadrant) Skin Lesions: no lesions Rashes: no rashes Neuro General: alert, awake and oriented x3 Cognition: normal cognition Speech: speech normal Extrem General: normal to inspection and capillary refill normal Psych Appearance: grossly normal and well kempt Course Orders Ordered: ED Orders 09/06/18 11:24 Complete Blood Count AUTO DIFF Stat Comprehensive Metabolic Panel Stat Lipase Stat 09/06/18 11:30 CT abdomen pelvis w con Stat 09/06/18 11:46 US pelvic complete Stat Discontinued Medications Sodium Chloride (Normal Saline 0.9%) 1,000 mls @ 1,000 mls/hr IV BOLUS ONE Stop: 09/06/18 12:07 Last Admin: 09/06/18 11:34 Dose: 1,000 mls/hr Morphine Sulfate (Morphine) 4 mg IV NOW ONE Stop: 09/06/18 11:09 Last Admin: 09/06/18 11:34 Dose: 4 mg Ondansetron HCl (Zofran) 4 mg IV NOW ONE Stop: 09/06/18 11:09 Last Admin: 09/06/18 11:34 Dose: 4 mg Vital Signs - 8 hr 09/06/18 10:35 09/06/18 12:24 Temperature 98.7 F Pulse Rate 77 84 Respiratory Rate 18 17 Blood Pressure 125/87 Blood Pressure [Left Arm] 127/88 Pulse Oximetry 98 99 MDM - Abdominal Pain Lab Data Attestation: I reviewed the patient's lab results. Result diagrams: 09/06/18 11:24 09/06/18 11:24 Lab Results 09/06/18 09/06/18 Range/Units 11:24 11:24 WBC 5.3 (4.5-11.0) X10^3/uL RBC 4.98 (4.0-5.2) X10^6/uL Hgb 15.1 (12.0-16.0) g/dL Hct 44.8 (36-46) % MCV 89.9 (80-100) fL MCH 30.3 (26-34) PG MCHC 33.6 (30-36) % RDW 12.6 (11.6-14.8) % Plt Count 307 (150-400) X10^3/uL Neut % (Auto) 65.6 (50-75) % Lymph % (Auto) 23.6 L (25-40) % [place] % (Auto) 8.5 (3-14) % Eos % (Auto) 1.5 L (2-4) % Baso % (Auto) 0.8 (0-2) % Neut # (Auto) 3500 (7164-1287) /uL Lymph # (Auto) 1300 (9583-6813) /uL [place] # (Auto) 500 (0-900) /uL Eos # (Auto) 100 (0-450) /uL Baso # (Auto) 0 (0-100) /uL Sodium 138 (137-145) mmol/L Potassium 4.3 (3.4-5.1) mmol/L Chloride 102 (98-107) mmol/L Carbon Dioxide 25 (22-32) mmol/L BUN 18 H (7-17) mg/dL Creatinine 0.80 (0.52-1.04) mg/dL Estimated GFR > 60.0 (>60) mL/min BUN/Creatinine Ratio 22.5 H (6-22) Glucose 92 (70-100) mg/dL Calcium 9.5 (8.4-10.2) mg/dL Total Bilirubin 0.6 (0.2-1.3) mg/dL AST 27 (14-36) IU/L ALT 45 (9-52) IU/L Alkaline Phosphatase 42 (38-126) U/L Total Protein 7.7 (6.3-8.2) g/dL Albumin 4.5 (3.5-5.0) g/dL Globulin 3.2 (1.7-4.1) g/dL Albumin/Globulin Ratio 1.4 (1.0-2.8) Lipase 58 (23-300) U/L Point of care testing: Point of Care Testing Test Results Negative Urine Dip Bedside Urine Glucose Negative Bedside Urine Bilirubin - Negative Bedside Urine Ketone - Negative Urine Specific [place] 1.025 Bedside Urine Occult Blood +/- Bedside Urine pH 6.0 Bedside Urine Protein +/- 15 Bedside Urine Urobilinogen - Negative Bedside Urine Nitrite - Negative Bedside Urine Leukocytes - Negative Esterase Imaging Data CT scan - abdomen: Radiologist's impression: PROCEDURE: CT ABDOMEN PELVIS W CON INDICATIONS: Right-sided abdominal pain TECHNIQUE: After the administration of intravenous contrast, 5 mm thick sections acquired from the diaphragm to the symphysis. 5 mm coronal and sagittal reformats were acquired. For radiation dose reduction, the following was used: automated exposure control, adjustment of mA and/or kV according to patient size. COMPARISON: [facility], CT, CT ABDOMEN PELVIS W CON, 06/14/2018, 17:18. FINDINGS: Image quality: Excellent. ABDOMEN: Lung bases: Lung bases are clear. Heart size is normal. Solid organs: Liver is normal in size and enhancement. Gallbladder is within normal limits. Biliary system is non dilated. Pancreas enhances normally. Spleen is normal in size and enhancement. No adrenal nodules. Kidneys demonstrate normal size and enhancement, without hydronephrosis. Peritoneum and bowel: Bowel loops demonstrate normal wall thickness and caliber. No free fluid or air. Normal appendix. Nodes and vessels: No retroperitoneal or mesenteric adenopathy by size criteria. Aorta and inferior vena cava are normal in size. Miscellaneous: No ventral hernias. PELVIS: Genitourinary: Urinary bladder is decompressed. Miscellaneous: No inguinal hernias or adenopathy. Bones: No suspicious bony lesions. No vertebral body compression fractures. IMPRESSION: 1. No acute process. 2. Normal appendix. Dictated by: Daniel Fuentes M.D. on 09/06/2018 at 11:40 Approved by: Daniel Fuentes M.D. on 09/06/2018 at 11:42 US - abdomen: Radiologist's impression: [address] [address] Ultrasound Report Signed Patient: Kaylin Stevenson EMR#: [id number] : 1995Acct:[id number] Age/Sex: 23 / FDate of Service: 09/06/18 Loc: ED Accession Number: [id number] Procedure: US pelvic complete Ordering Provider: Oli Gonzalez D.O. PROCEDURE: US PELVIC COMPLETE INDICATIONS: RIGHT ADNEXAL PAIN TECHNIQUE: Real-time scanning was performed of the pelvic organs, with image documentation. Additional endovaginal scanning was necessary due to incomplete visualization of the adnexal and endometrial structures by transabdominal scanning. COMPARISON: [facility], PELVIC COMPLETE, 09/06/2017, 12:38. [facility], , PELVIC COMPLETE, 08/13/2015, 19:00. FINDINGS: Transabdominal scanning: Limited scanning through the kidneys shows no hydronephrosis. No pathologic free abdominal or pelvic fluid. Endovaginal scanning: Uterus: Uterus is normal in size at 3.5 x 4.4 x 7.2 cm, anteverted. The endometrium measures 5.4 mm in combined thickness. Ovaries: Ovaries appear normal bilaterally. IMPRESSION: Normal endometrial lining thickness, anteverted uterus, no pelvic inflammation or mass is identified. Dictated by: Robby Calix M.D. on 09/06/2018 at 12:56 Approved by: Robby Calix M.D. on 09/06/2018 at 12:59 [facility] Narrative Medical decision making narrative: CT scan unremarkable, ultrasound unremarkable, labs unremarkable, no evidence of appendicitis, gallbladder pathology, ovarian torsion. No indication for antibiotics. Patient has pain medication at home. Hold on further workup for now. Patient was given return precautions. She expressed understanding and agreement with plan. Discharge Plan Departure Patient Disposition: Home Clinical Impression: Abdominal pain Qualifiers: Abdominal location: right lower quadrant Qualified Code(s): R10.31 - Right lower quadrant pain Instructions: DI for Abdominal Pain-Adult Activity Restrictions/Additional Instructions: Continue all of your medications as directed. Contact your primary provider for any further pain management and also your surgeon to discuss your visit today. Return to the emergency department for any new symptoms. Prescriptions: No Action piroxicam 20 MG capsule 20 mg PO DAILY Qty: 0 RF: 0 zolpidem [Ambien] 10 mg Tablet 10 mg PO BEDTIME RF: 0 Xeljanz XR 11 mg Tablet Extended Release 24 Hr 11 mg PO QPM RF: 0 clonazepam 1 mg tablet 1 mg PO QID PRN (Reason: Anxiety) RF: 0 folic acid 1 mg tablet 1 - 3 mg PO QPM RF: 0 metoprolol succinate 25 mg tablet extended release 24 hr 50 mg PO QPM RF: 0 hydroxyzine pamoate 25 mg capsule 25 - 50 mg PO PRN PRN (Reason: panic attacks) RF: 0 escitalopram oxalate 20 mg tablet 20 mg PO QPM RF: 0 levocetirizine 5 mg tablet 5 mg PO QPM RF: 0 Rasuvo (PF) 25 mg/0.5 mL auto-injector 1 dose subcut FR RF: 0 oxycodone-acetaminophen 10-325 mg tablet 1 tab PO Q6H PRN (Reason: Pain, Severe) RF: 0 Nortrel 1/35 (28) 1-35 mg-mcg tablet 1 tab PO QPM RF: 0 Referrals: Rebecca Khan MD [Primary Care Provider] -
--- NOTE | 2018-09-06 11:30 | DI.CT.S_ITS ---
PROCEDURE: CT ABDOMEN PELVIS W CON INDICATIONS: Right-sided abdominal pain TECHNIQUE: After the administration of intravenous contrast, 5 mm thick sections acquired from the diaphragm to the symphysis. 5 mm coronal and sagittal reformats were acquired. For radiation dose reduction, the following was used: automated exposure control, adjustment of mA and/or kV according to patient size. COMPARISON: [facility], CT, CT ABDOMEN PELVIS W CON, 06/14/2018, 17:18. FINDINGS: Image quality: Excellent. ABDOMEN: Lung bases: Lung bases are clear. Heart size is normal. Solid organs: Liver is normal in size and enhancement. Gallbladder is within normal limits. Biliary system is non dilated. Pancreas enhances normally. Spleen is normal in size and enhancement. No adrenal nodules. Kidneys demonstrate normal size and enhancement, without hydronephrosis. Peritoneum and bowel: Bowel loops demonstrate normal wall thickness and caliber. No free fluid or air. Normal appendix. Nodes and vessels: No retroperitoneal or mesenteric adenopathy by size criteria. Aorta and inferior vena cava are normal in size. Miscellaneous: No ventral hernias. PELVIS: Genitourinary: Urinary bladder is decompressed. Miscellaneous: No inguinal hernias or adenopathy. Bones: No suspicious bony lesions. No vertebral body compression fractures. IMPRESSION: 1. No acute process. 2. Normal appendix. Dictated by: Daniel Fuentes M.D. on 09/06/2018 at 11:40 Approved by: Daniel Fuentes M.D. on 09/06/2018 at 11:42
[2018-09-06 11:32] LABS: Add Manual Diff / Slide Review NO; Basophils Absolute Auto 0 /uL (0-100); Basophils Percent Auto 0.8 % (0-2); Eosinophils Absolute Auto 100 /uL (0-450); Eosinophils Percent Auto 1.5 % (2-4); Hematocrit 44.8 % (36-46); Hemoglobin 15.1 g/dL (12.0-16.0); Lymphocytes Absolute Auto 1300 /uL (1100-4500); Lymphocytes Percent Auto 23.6 % (25-40); Mean Corpuscular HGB Conc 33.6 % (30-36); Mean Corpuscular Hemoglobin 30.3 PG (26-34); Mean Corpuscular Volume 89.9 fL (80-100); Monocytes Absolute Auto 500 /uL (0-900); Monocytes Percent Auto 8.5 % (3-14); Neutrophils Absolute Auto 3500 /uL (1500-7000); Neutrophils Percent Auto 65.6 % (50-75); Platelet Count 307 X10^3/uL (150-400); Red Blood Cell Count 4.98 X10^6/uL (4.0-5.2); Red Cell Distribution Width 12.6 % (11.6-14.8); White Blood Cell Count 5.3 X10^3/uL (4.5-11.0)
[2018-09-06] MEDS: SODIUM CHLORIDE 0.9% 1,000 ML 1000 ML IV (11:34)
[2018-09-06] MEDS: ONDANSETRON 4 MG/2 ML INJ IV (11:34)
[2018-09-06] MEDS: MORPHINE 4 MG/ML INJ IV (11:34)
--- NOTE | 2018-09-06 11:46 | DI.US.S_ITS ---
PROCEDURE: US PELVIC COMPLETE INDICATIONS: RIGHT ADNEXAL PAIN TECHNIQUE: Real-time scanning was performed of the pelvic organs, with image documentation. Additional endovaginal scanning was necessary due to incomplete visualization of the adnexal and endometrial structures by transabdominal scanning. COMPARISON: [facility], , PELVIC COMPLETE, 09/06/2017, 12:38. [facility], , PELVIC COMPLETE, 08/13/2015, 19:00. FINDINGS: Transabdominal scanning: Limited scanning through the kidneys shows no hydronephrosis. No pathologic free abdominal or pelvic fluid. Endovaginal scanning: Uterus: Uterus is normal in size at 3.5 x 4.4 x 7.2 cm, anteverted. The endometrium measures 5.4 mm in combined thickness. Ovaries: Ovaries appear normal bilaterally. IMPRESSION: Normal endometrial lining thickness, anteverted uterus, no pelvic inflammation or mass is identified. Dictated by: Robby Calix M.D. on 09/06/2018 at 12:56 Approved by: Robby Calix M.D. on 09/06/2018 at 12:59
[2018-09-06 11:48] LABS: Alanine Aminotransferase 45 IU/L (9-52); Albumin 4.5 g/dL (3.5-5.0); Albumin Globulin Ratio 1.4 (1.0-2.8); Alkaline Phosphatase 42 U/L (38-126); Aspartate Aminotransferase 27 IU/L (14-36); BUN Creatinine Ratio 22.5 (6-22); Bilirubin Total 0.6 mg/dL (0.2-1.3); Blood Urea Nitrogen 18 mg/dL (7-17); Calcium 9.5 mg/dL (8.4-10.2); Carbon Dioxide 25 mmol/L (22-32); Chloride 102 mmol/L (98-107); Estimated Glomerular Filt Rate > 60.0 mL/min (>60); Globulin 3.2 g/dL (1.7-4.1); Glucose 92 mg/dL (70-100); HEMOLYSIS < 15 (0-50); Lipase 58 U/L (23-300); Potassium 4.3 mmol/L (3.4-5.1); Sodium 138 mmol/L (137-145); Total Protein 7.7 g/dL (6.3-8.2)
[2018-09-06 12:24] VITALS: BP 127/88; PULSE 84; RESP 17; O2SAT 99
[2018-09-06 13:41] VITALS: BP 113/71; PULSE 70; RESP 17; TEMP 37.2; O2SAT 100
== END 2018-09-06 13:47 | disposition home or self-care (01) ==
PROVIDERS: Emergency Provider Emergency Medicine; PCP Family Medicine
DX: R10.31 Right lower quadrant pain (principal)
CPT/HCPCS: 36591; 74177; 76830; 76856; 80053; 81003; 81025; 83690; 85025; 96361; 96374; 96375; 99283; 99285; J2270; J2405; Q9967

== ENCOUNTER 2018-10-02 13:00 | Emergency (ER) | payer OTHER, SELFPAY ==
[2018-10-02 13:17] VITALS: BP 130/85; PULSE 89; RESP 16; TEMP 36.8; O2SAT 98; BMI 39.1
--- NOTE | 2018-10-02 14:53 | ED.ABDPAIN ---
HPI - Abdominal Pain <LIANE Rader - Last Filed: 10/02/18 22:15> General Chief Complaint: Abdominal Pain Stated Complaint: surgery 2wks ago,endomitriosis,bleeding Time Seen by Provider: 10/02/18 14:44 Source: patient Mode of arrival: ambulatory Limitations: no limitations History of Present Illness HPI narrative: 23-year-old female with history of rheumatoid arthritis here for complaint of having vaginal bleeding and cramping with also rectal bleeding for the past 2 weeks. She states that she had surgery done by [facility] for ablation of endometriosis that was done laparoscopically. She denies any fevers or chills. she denies any urinary symptoms. She states that her last menstrual period was approximately 7 years ago as she has been on control. 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 She reports that they have also put her referral and to see but ago [facility] Dr. Gonzales which has not happened as of yet. She denies any stressors relievers of her symptoms. She denies any abdominal pain. No flank pain. MD complaint: other Related Data Home Medications Medication Instructions Recorded Confirmed piroxicam 20 mg PO DAILY #0 04/07/17 10/02/18 tofacitinib [Xeljanz XR] 11 mg PO QPM 01/24/18 10/02/18 zolpidem [Ambien] 10 mg PO BEDTIME PRN 01/24/18 10/02/18 clonazepam 1 mg PO QID PRN 06/05/18 09/06/18 escitalopram oxalate 20 mg PO QPM 06/05/18 10/02/18 folic acid 1 - 3 mg PO QPM 06/05/18 10/02/18 hydroxyzine pamoate 25 - 50 mg PO PRN PRN 06/05/18 10/02/18 levocetirizine 5 mg PO QPM 06/05/18 10/02/18 metoprolol succinate 50 mg PO QPM 06/05/18 10/02/18 methotrexate (PF) [Rasuvo (PF)] 1 dose SUBCUT FR 08/08/18 09/06/18 norethindrone-ethin estradiol 1 tab PO QPM 09/06/18 10/02/18 [Nortrel (28)] oxycodone-acetaminophen 1 tab PO Q6H PRN 09/06/18 10/02/18 gabapentin 100 - 300 mg PO TID PRN 10/02/18 10/02/18 norethindrone-ethin estradiol 10/02/18 [Nortrel (28)] ondansetron 8 mg PO TID PRN 10/02/18 10/02/18 oxycodone 5 - 10 mg PO Q4H PRN 10/02/18 10/02/18 Previous Rx's Medication Instructions Recorded hydrocodone-acetaminophen [[place]] 1 tab PO Q6H PRN #10 tab 10/02/18 Allergies Allergy/AdvReac Type Severity Reaction Status Date / Time tioconazole Allergy Intermediate Rash Verified 10/02/18 13:20 [From Monistat 1 (tioconazole)] Review of Systems <LIANE Rader - Last Filed: 10/02/18 22:15> Constitutional Denies chills, Denies fever(s), Denies lethargy and Denies weakness Eyes Denies change in vision, Denies eye discharge, Denies irritation and Denies loss of vision ENT Ears, Nose, Mouth, and Throat: Denies change in voice, Denies neck pain and Denies sore throat Cardiovascular Denies chest pain, Denies irregular heart rhythm, Denies lightheadedness, Denies palpitations, Denies dyspnea, Denies dyspnea on exertion and Denies orthopnea Respiratory Denies cough, Denies dyspnea, Denies dyspnea on exertion and Denies wheezing Gastrointestinal Gastrointestinal: Denies abdominal pain, Denies change in bowel habits, Denies diarrhea, Denies nausea and Denies vomiting Genitourinary Comments: Vaginal and rectal bleeding with pubic cramping for last couple of weeks status post surgery Musculoskeletal Denies neck pain Integumentary/Breasts Denies pruritus, Denies erythema, Denies rash and Denies wounds Neurologic Denies confusion, Denies loss of vision and Denies weakness Psychiatric Denies anxiety, Denies confusion, Denies depression, Denies homicidal ideation and Denies suicidal ideation Endocrine Denies palpitations Hematologic/Lymphatic Denies easy bruising Allergic/Immunologic Denies wheezing PFSH <LIANE Rader - Last Filed: 10/02/18 22:15> Medical History Rheumatoid arthritis (Acute) Social History Smoking Status: Never smoker Social History Smoking Status: Never smoker Exam <LIANE Rader - Last Filed: 10/02/18 22:15> Initial Vital Signs Initial Vital Signs: Vital Signs Temperature 98.2 F 10/02/18 13:17 Pulse Rate 89 10/02/18 13:17 Respiratory Rate 16 10/02/18 13:17 Blood Pressure 130/85 10/02/18 13:17 Pulse Oximetry 98 10/02/18 13:17 Const General: cooperative and well developed Nutritional Appearance: well nourished Orientation: alert, awake, oriented x3 and not confused HENMT Mouth: oral mucosae normal and moist mucous membranes Eyes Conjunctivae: conjunctivae normal Sclera: sclerae normal Pupils: PERRL EOM: EOM intact bilaterally Resp Effort & Inspection: normal respiratory effort, able to speak in complete sentences, no respiratory distress and no use of accessory muscles Auscultation: clear to auscultation bilaterally, no rales, no rhonchi and no wheezes Cardio Rate: regular rate Rhythm: regular rhythm Heart Sounds: no click, no gallops, no murmurs and no rubs Pulses: normal peripheral pulses GI Inspection: non-distended Palpation: soft, no hepatosplenomegaly, No guarding, No pulsatile mass and tender (Tenderness to suprapubic region) Auscultation: normal bowel sounds Rectal Exam: visual inspection normal, normal sphincter tone and heme negative stool General: No CVA tenderness External Female Exam: external appearance normal Speculum Exam - Vagina: normal appearance of the vagina, abnormal vaginal discharge white and No vaginal bleeding Speculum Exam - Cervix: normal appearance of the cervix, closed cervix and cervical tenderness Bimanual Exam- Vagina & Uterus: cervical tenderness Bimanual Exam- Adnexa, other: adnexal tenderness OB/External & Speculum: No vaginal bleeding Skin General: no rashes or lesions noted, No jaundice and No petechiae Neuro General: alert, oriented x3, gait normal and no focal motor deficits Speech: speech normal <Cindy Ferguson DO - Last Filed: 10/03/18 19:20> Initial Vital Signs Initial Vital Signs: Vital Signs Temperature 98.2 F 10/02/18 13:17 Pulse Rate 89 10/02/18 13:17 Respiratory Rate 16 10/02/18 13:17 Blood Pressure 130/85 10/02/18 13:17 Pulse Oximetry 98 10/02/18 13:17 Course <LIANE Rader - Last Filed: 10/02/18 22:15> Orders Ordered: Discontinued Medications Hydrocodone Bitart/Acetaminophen ([place] 5/325) 1 tab PO NOW ONE Stop: 10/02/18 17:22 Last Admin: 10/02/18 17:39 Dose: 1 tab Vital Signs - 8 hr 10/02/18 17:40 Pulse Rate 82 Respiratory Rate 13 Blood Pressure [Right Arm] 120/71 Pulse Oximetry 100 <Cindy Ferguson DO - Last Filed: 10/03/18 19:20> Orders Ordered: Discontinued Medications Hydrocodone Bitart/Acetaminophen ([place] 5/325) 1 tab PO NOW ONE Stop: 10/02/18 17:22 Last Admin: 10/02/18 17:39 Dose: 1 tab Vital Signs - 8 hr 10/02/18 17:40 Pulse Rate 82 Respiratory Rate 13 Blood Pressure [Right Arm] 120/71 Pulse Oximetry 100 MDM - Abdominal Pain <LIANE Rader - Last Filed: 10/02/18 22:15> Lab Data Result diagrams: 10/02/18 15:48 10/02/18 15:48 Lab Results 10/02/18 10/02/18 Range/Units 15:48 15:48 WBC 7.7 (4.5-11.0) X10^3/uL RBC 4.84 (4.0-5.2) X10^6/uL Hgb 14.6 (12.0-16.0) g/dL Hct 43.6 (36-46) % MCV 90.2 (80-100) fL MCH 30.1 (26-34) PG MCHC 33.4 (30-36) % RDW 12.6 (11.6-14.8) % Plt Count 275 (150-400) X10^3/uL Neut % (Auto) 66.6 (50-75) % Lymph % (Auto) 22.2 L (25-40) % [place] % (Auto) 6.9 (3-14) % Eos % (Auto) 3.5 (2-4) % Baso % (Auto) 0.8 (0-2) % Neut # (Auto) 5200 (3455-9087) /uL Lymph # (Auto) 1700 (5137-7678) /uL [place] # (Auto) 500 (0-900) /uL Eos # (Auto) 300 (0-450) /uL Baso # (Auto) 100 (0-100) /uL Sodium 138 (137-145) mmol/L Potassium 4.1 (3.4-5.1) mmol/L Chloride 105 (98-107) mmol/L Carbon Dioxide 22 (22-32) mmol/L BUN 20 H (7-17) mg/dL Creatinine 0.70 (0.52-1.04) mg/dL Estimated GFR > 60.0 (>60) mL/min BUN/Creatinine Ratio 28.6 H (6-22) Glucose 83 (70-100) mg/dL Calcium 9.1 (8.4-10.2) mg/dL Total Bilirubin 0.4 (0.2-1.3) mg/dL AST 19 (14-36) IU/L ALT 31 (9-52) IU/L Alkaline Phosphatase 44 (38-126) U/L Total Protein 7.4 (6.3-8.2) g/dL Albumin 4.1 (3.5-5.0) g/dL Globulin 3.3 (1.7-4.1) g/dL Albumin/Globulin Ratio 1.2 (1.0-2.8) Lipase 87 (23-300) U/L Point of care testing: Point of Care Testing Test Results Negative Urine Dip Bedside Urine Glucose Negative Bedside Urine Bilirubin - Negative Bedside Urine Ketone - Negative Urine Specific Wheeler 1.030 Bedside Urine Occult Blood - Negative Bedside Urine pH 5.5 Bedside Urine Protein +/- 15 Bedside Urine Urobilinogen - Negative Bedside Urine Nitrite - Negative Bedside Urine Leukocytes - Negative Esterase Imaging Data Pelvic US: Radiologist's impression: [address] [address] Ultrasound Report Signed Patient: Kaylin Stevenson EMR#: [id number] : 1995Acct:[id number] Age/Sex: 23 / FDate of Service: 10/02/18 Loc: ED Accession Number: [id number] Procedure: US pelvic complete Ordering Provider: Ethan Hebert PROCEDURE: US PELVIC COMPLETE INDICATIONS: VAGINAL AND RECTAL BLEEDING 2 WEEKS POST ENDOMETRIOSIS SURGE TECHNIQUE: Real-time scanning was performed of the pelvic organs, with image documentation. Additional endovaginal scanning was necessary due to incomplete visualization of the adnexal and endometrial structures by transabdominal scanning. COMPARISON: [facility], US, US PELVIC COMPLETE, 09/06/2018, 12:02. [facility], CT, CT ABDOMEN PELVIS W CON, 09/06/2018, 11:20. FINDINGS: Transabdominal scanning: Limited scanning through the kidneys shows no hydronephrosis. No pathologic free abdominal or pelvic fluid. A trace amount of free fluid is felt to be physiologic, within the pelvis. Endovaginal scanning: Uterus: Uterus is normal in size at 8.1 x 3.0 x 4.3 cm. The endometrium measures 2 mm in combined thickness. Mild heterogeneity on the anterior and posterior ayala of the uterus with mildly increased vascularity is identified. This could potentially represent small uterine fibroids. No fluid is seen within the endometrium. Ovaries: The right ovary is normal in size and measures 3.2 x 2.0 x 2.4 cm. The left ovary measures 5.0 x 1.4 x 1.6 cm. Both ovaries are normal in size without cystic or solid abnormality. Subcentimeter follicles are present, bilaterally. IMPRESSION: 1. Heterogeneity and increased vascularity of the uterus is nonspecific and may represent small uterine fibroids. Infectious endometritis or less likely adenomyosis cannot be excluded. The need for better characterization utilizing contrast-enhanced MRI of the pelvis may be determined clinically. 2. Unremarkable ovaries. Dictated by: Braden Lara M.D. on 10/02/2018 at 15:16 Approved by: Braden Lara M.D. on 10/02/2018 at 15:20 MDM Narrative Medical decision making narrative: Pelvic ultrasound was obtained and does show some increased vascularity to the uterus which is nonspecific. CBC and Chem panel were obtained and were unremarkable. urinalysis was negative for urinary tract infection and also . Wet prep was obtained was unremarkable. vaginal culture is obtained and pending. Patient did have some cervical tenderness on exam. Fecal occult stool was negative. discussed case with Dr. Haile on-call OBGYN and informed of symptoms and laboratory/imaging findings. She is instructed to follow up with OBGYN at the [facility] to call the number tomorrow to schedule follow-up appointment. Dr. Haile states that they will see her in the next couple of days. [id number] ibuprofen as needed for any discomfort. Small amount of [place] is prescribed for breakthrough pain. For any worsening symptoms return to the emergency room. <Cindy Ferguson, DO - Last Filed: 10/03/18 19:20> Lab Data Lab Results 10/02/18 10/02/18 Range/Units 15:48 15:48 WBC 7.7 (4.5-11.0) X10^3/uL RBC 4.84 (4.0-5.2) X10^6/uL Hgb 14.6 (12.0-16.0) g/dL Hct 43.6 (36-46) % MCV 90.2 (80-100) fL MCH 30.1 (26-34) PG MCHC 33.4 (30-36) % RDW 12.6 (11.6-14.8) % Plt Count 275 (150-400) X10^3/uL Neut % (Auto) 66.6 (50-75) % Lymph % (Auto) 22.2 L (25-40) % [place] % (Auto) 6.9 (3-14) % Eos % (Auto) 3.5 (2-4) % Baso % (Auto) 0.8 (0-2) % Neut # (Auto) 5200 (6626-5340) /uL Lymph # (Auto) 1700 (9786-5980) /uL [place] # (Auto) 500 (0-900) /uL Eos # (Auto) 300 (0-450) /uL Baso # (Auto) 100 (0-100) /uL Sodium 138 (137-145) mmol/L Potassium 4.1 (3.4-5.1) mmol/L Chloride 105 (98-107) mmol/L Carbon Dioxide 22 (22-32) mmol/L BUN 20 H (7-17) mg/dL Creatinine 0.70 (0.52-1.04) mg/dL Estimated GFR > 60.0 (>60) mL/min BUN/Creatinine Ratio 28.6 H (6-22) Glucose 83 (70-100) mg/dL Calcium 9.1 (8.4-10.2) mg/dL Total Bilirubin 0.4 (0.2-1.3) mg/dL AST 19 (14-36) IU/L ALT 31 (9-52) IU/L Alkaline Phosphatase 44 (38-126) U/L Total Protein 7.4 (6.3-8.2) g/dL Albumin 4.1 (3.5-5.0) g/dL Globulin 3.3 (1.7-4.1) g/dL Albumin/Globulin Ratio 1.2 (1.0-2.8) Lipase 87 (23-300) U/L Point of care testing: Point of Care Testing Test Results Negative Urine Dip Bedside Urine Glucose Negative Bedside Urine Bilirubin - Negative Bedside Urine Ketone - Negative Urine Specific Wheeler 1.030 Bedside Urine Occult Blood - Negative Bedside Urine pH 5.5 Bedside Urine Protein +/- 15 Bedside Urine Urobilinogen - Negative Bedside Urine Nitrite - Negative Bedside Urine Leukocytes - Negative Esterase Discharge Plan Departure Patient Disposition: Home Clinical Impression: Pelvic pain Discharge Date/Time: 10/02/18 18:40 Interventions: ED Discharge Assessment Last Done: 10/02/18 18:39 Instructions: DI for Pelvic Pain Activity Restrictions/Additional Instructions: Laboratory results and imaging today were unremarkable. you are referred to OBGYN for further evaluation. Call the number at number provided to schedule follow-up appointment. Use [id number] ibuprofen as needed for any discomfort. Small amount of [place] is prescribed for breakthrough pain. No driving while on the [place]. For any worsening symptoms return to the emergency room. Prescriptions: New hydrocodone-acetaminophen [[place]] 5-325 mg tablet 1 tab PO Q6H PRN (Reason: pain) Qty: 10 RF: 0 No Action piroxicam 20 MG capsule 20 mg PO DAILY Qty: 0 RF: 0 zolpidem [Ambien] 10 mg Tablet 10 mg PO BEDTIME PRN (Reason: Insomnia) RF: 0 Xeljanz XR 11 mg Tablet Extended Release 24 Hr 11 mg PO QPM RF: 0 clonazepam 1 mg tablet 1 mg PO QID PRN (Reason: Anxiety) RF: 0 folic acid 1 mg tablet 1 - 3 mg PO QPM RF: 0 metoprolol succinate 25 mg tablet extended release 24 hr 50 mg PO QPM RF: 0 hydroxyzine pamoate 25 mg capsule 25 - 50 mg PO PRN PRN (Reason: panic attacks) RF: 0 escitalopram oxalate 20 mg tablet 20 mg PO QPM RF: 0 levocetirizine 5 mg tablet 5 mg PO QPM RF: 0 Rasuvo (PF) 25 mg/0.5 mL auto-injector 1 dose subcut FR RF: 0 oxycodone-acetaminophen 10-325 mg tablet 1 tab PO Q6H PRN (Reason: Pain, Severe) RF: 0 Nortrel 1/35 (28) 1-35 mg-mcg tablet 1 tab PO QPM RF: 0 ondansetron 8 mg tablet,disintegrating 8 mg PO TID PRN (Reason: Nausea) RF: 0 gabapentin 100 mg capsule 100 - 300 mg PO TID PRN (Reason: pain) RF: 0 Nortrel 1/35 (28) 1-35 mg-mcg tablet RF: 0 oxycodone 5 mg tablet 5 - 10 mg PO Q4H PRN (Reason: Pain, Severe) RF: 0 Referrals: Rebecca Khan MD [Primary Care Provider] - <Cindy Ferguson DO - Last Filed: 10/03/18 19:20> Cosign ED Attending Cosignature Attestation: I was immediately available in the department for consultation. This documentation has been reviewed and I agree with assessment and plan. Supervised by Cindy Ferguson DO
--- NOTE | 2018-10-02 15:08 | DI.US.S_ITS ---
PROCEDURE: US PELVIC COMPLETE INDICATIONS: VAGINAL AND RECTAL BLEEDING 2 WEEKS POST ENDOMETRIOSIS SURGE TECHNIQUE: Real-time scanning was performed of the pelvic organs, with image documentation. Additional endovaginal scanning was necessary due to incomplete visualization of the adnexal and endometrial structures by transabdominal scanning. COMPARISON: [facility], US, US PELVIC COMPLETE, 09/06/2018, 12:02. [facility], CT, CT ABDOMEN PELVIS W CON, 09/06/2018, 11:20. FINDINGS: Transabdominal scanning: Limited scanning through the kidneys shows no hydronephrosis. No pathologic free abdominal or pelvic fluid. A trace amount of free fluid is felt to be physiologic, within the pelvis. Endovaginal scanning: Uterus: Uterus is normal in size at 8.1 x 3.0 x 4.3 cm. The endometrium measures 2 mm in combined thickness. Mild heterogeneity on the anterior and posterior ayala of the uterus with mildly increased vascularity is identified. This could potentially represent small uterine fibroids. No fluid is seen within the endometrium. Ovaries: The right ovary is normal in size and measures 3.2 x 2.0 x 2.4 cm. The left ovary measures 5.0 x 1.4 x 1.6 cm. Both ovaries are normal in size without cystic or solid abnormality. Subcentimeter follicles are present, bilaterally. IMPRESSION: 1. Heterogeneity and increased vascularity of the uterus is nonspecific and may represent small uterine fibroids. Infectious endometritis or less likely adenomyosis cannot be excluded. The need for better characterization utilizing contrast-enhanced MRI of the pelvis may be determined clinically. 2. Unremarkable ovaries. Dictated by: Braden Lara M.D. on 10/02/2018 at 15:16 Approved by: Braden Lara M.D. on 10/02/2018 at 15:20
[2018-10-02 16:00] LABS: Add Manual Diff / Slide Review NO; Basophils Absolute Auto 100 /uL (0-100); Basophils Percent Auto 0.8 % (0-2); Eosinophils Absolute Auto 300 /uL (0-450); Eosinophils Percent Auto 3.5 % (2-4); Hematocrit 43.6 % (36-46); Hemoglobin 14.6 g/dL (12.0-16.0); Lymphocytes Absolute Auto 1700 /uL (1100-4500); Lymphocytes Percent Auto 22.2 % (25-40); Mean Corpuscular HGB Conc 33.4 % (30-36); Mean Corpuscular Hemoglobin 30.1 PG (26-34); Mean Corpuscular Volume 90.2 fL (80-100); Monocytes Absolute Auto 500 /uL (0-900); Monocytes Percent Auto 6.9 % (3-14); Neutrophils Absolute Auto 5200 /uL (1500-7000); Neutrophils Percent Auto 66.6 % (50-75); Platelet Count 275 X10^3/uL (150-400); Red Blood Cell Count 4.84 X10^6/uL (4.0-5.2); Red Cell Distribution Width 12.6 % (11.6-14.8); White Blood Cell Count 7.7 X10^3/uL (4.5-11.0)
[2018-10-02 16:07] LABS: Alanine Aminotransferase 31 IU/L (9-52); Albumin 4.1 g/dL (3.5-5.0); Albumin Globulin Ratio 1.2 (1.0-2.8); Alkaline Phosphatase 44 U/L (38-126); Aspartate Aminotransferase 19 IU/L (14-36); BUN Creatinine Ratio 28.6 (6-22); Bilirubin Total 0.4 mg/dL (0.2-1.3); Blood Urea Nitrogen 20 mg/dL (7-17); Calcium 9.1 mg/dL (8.4-10.2); Carbon Dioxide 22 mmol/L (22-32); Chloride 105 mmol/L (98-107); Estimated Glomerular Filt Rate > 60.0 mL/min (>60); Globulin 3.3 g/dL (1.7-4.1); Glucose 83 mg/dL (70-100); HEMOLYSIS 18 (0-50); Lipase 87 U/L (23-300); Potassium 4.1 mmol/L (3.4-5.1); Sodium 138 mmol/L (137-145); Total Protein 7.4 g/dL (6.3-8.2)
[2018-10-02] MEDS: HYDROCODONE/ACET 5/325 TABLET 1 TAB PO (17:39)
[2018-10-02 17:40] VITALS: BP 120/71; PULSE 82; RESP 13; O2SAT 100
--- NOTE | 2018-10-02 18:14 | ED_ITS ---
HPI - Abdominal Pain <LIANE Rader - Last Filed: 10/02/18 22:15> General Chief Complaint: Abdominal Pain Stated Complaint: surgery 2wks ago,endomitriosis,bleeding Time Seen by Provider: 10/02/18 14:44 Source: patient Mode of arrival: ambulatory Limitations: no limitations History of Present Illness HPI narrative: 23-year-old female with history of rheumatoid arthritis here for complaint of having vaginal bleeding and cramping with also rectal bleeding for the past 2 weeks. She states that she had surgery done by call center coordinator for ablation of endometriosis that was done laparoscopically. She denies any fevers or chills. she denies any urinary symptoms. She states that her last menstrual period was approximately 7 years ago as she has been on control. She tried to contact her call center coordinator office who told her to come to the emergency room. She reports that they have also put her referral and to see but ago [facility] Dr. Gonzales which has not happened as of yet. She denies any stressors relievers of her symptoms. She denies any abdominal pain. No flank pain. MD complaint: other Related Data Home Medications Medication Instructions Recorded Confirmed piroxicam 20 mg PO DAILY #0 04/07/17 10/02/18 tofacitinib [Xeljanz XR] 11 mg PO QPM 01/24/18 10/02/18 zolpidem [Ambien] 10 mg PO BEDTIME PRN 01/24/18 10/02/18 clonazepam 1 mg PO QID PRN 06/05/18 09/06/18 escitalopram oxalate 20 mg PO QPM 06/05/18 10/02/18 folic acid 1 - 3 mg PO QPM 06/05/18 10/02/18 hydroxyzine pamoate 25 - 50 mg PO PRN PRN 06/05/18 10/02/18 levocetirizine 5 mg PO QPM 06/05/18 10/02/18 metoprolol succinate 50 mg PO QPM 06/05/18 10/02/18 methotrexate (PF) [Rasuvo (PF)] 1 dose SUBCUT FR 08/08/18 09/06/18 norethindrone-ethin estradiol 1 tab PO QPM 09/06/18 10/02/18 [Nortrel (28)] oxycodone-acetaminophen 1 tab PO Q6H PRN 09/06/18 10/02/18 gabapentin 100 - 300 mg PO TID PRN 10/02/18 10/02/18 norethindrone-ethin estradiol 10/02/18 [Nortrel (28)] ondansetron 8 mg PO TID PRN 10/02/18 10/02/18 oxycodone 5 - 10 mg PO Q4H PRN 10/02/18 10/02/18 Previous Rx's Medication Instructions Recorded hydrocodone-acetaminophen [Ferron] 1 tab PO Q6H PRN #10 tab 10/02/18 Allergies Allergy/AdvReac Type Severity Reaction Status Date / Time tioconazole Allergy Intermediate Rash Verified 10/02/18 13:20 [From Monistat 1 (tioconazole)] Review of Systems <LIANE Rader - Last Filed: 10/02/18 22:15> Constitutional Denies chills, Denies fever(s), Denies lethargy and Denies weakness Eyes Denies change in vision, Denies eye discharge, Denies irritation and Denies loss of vision ENT Ears, Nose, Mouth, and Throat: Denies change in voice, Denies neck pain and Denies sore throat Cardiovascular Denies chest pain, Denies irregular heart rhythm, Denies lightheadedness, Denies palpitations, Denies dyspnea, Denies dyspnea on exertion and Denies orthopnea Respiratory Denies cough, Denies dyspnea, Denies dyspnea on exertion and Denies wheezing Gastrointestinal Gastrointestinal: Denies abdominal pain, Denies change in bowel habits, Denies diarrhea, Denies nausea and Denies vomiting Genitourinary Comments: Vaginal and rectal bleeding with pubic cramping for last couple of weeks status post surgery Musculoskeletal Denies neck pain Integumentary/Breasts Denies pruritus, Denies erythema, Denies rash and Denies wounds Neurologic Denies confusion, Denies loss of vision and Denies weakness Psychiatric Denies anxiety, Denies confusion, Denies depression, Denies homicidal ideation and Denies suicidal ideation Endocrine Denies palpitations Hematologic/Lymphatic Denies easy bruising Allergic/Immunologic Denies wheezing PFSH <LIANE Rader - Last Filed: 10/02/18 22:15> Medical History Rheumatoid arthritis (Acute) Social History Smoking Status: Never smoker Social History Smoking Status: Never smoker Exam <LIANE Rader - Last Filed: 10/02/18 22:15> Initial Vital Signs Initial Vital Signs: Vital Signs Temperature 98.2 F 10/02/18 13:17 Pulse Rate 89 10/02/18 13:17 Respiratory Rate 16 10/02/18 13:17 Blood Pressure 130/85 10/02/18 13:17 Pulse Oximetry 98 10/02/18 13:17 Const General: cooperative and well developed Nutritional Appearance: well nourished Orientation: alert, awake, oriented x3 and not confused HENMT Mouth: oral mucosae normal and moist mucous membranes Eyes Conjunctivae: conjunctivae normal Sclera: sclerae normal Pupils: PERRL EOM: EOM intact bilaterally Resp Effort & Inspection: normal respiratory effort, able to speak in complete sentences, no respiratory distress and no use of accessory muscles Auscultation: clear to auscultation bilaterally, no rales, no rhonchi and no wheezes Cardio Rate: regular rate Rhythm: regular rhythm Heart Sounds: no click, no gallops, no murmurs and no rubs Pulses: normal peripheral pulses GI Inspection: non-distended Palpation: soft, no hepatosplenomegaly, No guarding, No pulsatile mass and tender (Tenderness to suprapubic region) Auscultation: normal bowel sounds Rectal Exam: visual inspection normal, normal sphincter tone and heme negative stool General: No CVA tenderness External Female Exam: external appearance normal Speculum Exam - Vagina: normal appearance of the vagina, abnormal vaginal discharge white and No vaginal bleeding Speculum Exam - Cervix: normal appearance of the cervix, closed cervix and cervical tenderness Bimanual Exam- Vagina & Uterus: cervical tenderness Bimanual Exam- Adnexa, other: adnexal tenderness OB/External & Speculum: No vaginal bleeding Skin General: no rashes or lesions noted, No jaundice and No petechiae Neuro General: alert, oriented x3, gait normal and no focal motor deficits Speech: speech normal <Cindy Ferguson DO - Last Filed: 10/03/18 19:20> Initial Vital Signs Initial Vital Signs: Vital Signs Temperature 98.2 F 10/02/18 13:17 Pulse Rate 89 10/02/18 13:17 Respiratory Rate 16 10/02/18 13:17 Blood Pressure 130/85 10/02/18 13:17 Pulse Oximetry 98 10/02/18 13:17 Course <LIANE Rader - Last Filed: 10/02/18 22:15> Orders Ordered: Discontinued Medications Hydrocodone Bitart/Acetaminophen (Ferron 5/325) 1 tab PO NOW ONE Stop: 10/02/18 17:22 Last Admin: 10/02/18 17:39 Dose: 1 tab Vital Signs - 8 hr 10/02/18 17:40 Pulse Rate 82 Respiratory Rate 13 Blood Pressure [Right Arm] 120/71 Pulse Oximetry 100 <Cindy Ferguson DO - Last Filed: 10/03/18 19:20> Orders Ordered: Discontinued Medications Hydrocodone Bitart/Acetaminophen (Ferron 5/325) 1 tab PO NOW ONE Stop: 10/02/18 17:22 Last Admin: 10/02/18 17:39 Dose: 1 tab Vital Signs - 8 hr 10/02/18 17:40 Pulse Rate 82 Respiratory Rate 13 Blood Pressure [Right Arm] 120/71 Pulse Oximetry 100 MDM - Abdominal Pain <LIANE Rader - Last Filed: 10/02/18 22:15> Lab Data Result diagrams: 10/02/18 15:48 10/02/18 15:48 Lab Results 10/02/18 10/02/18 Range/Units 15:48 15:48 WBC 7.7 (4.5-11.0) X10^3/uL RBC 4.84 (4.0-5.2) X10^6/uL Hgb 14.6 (12.0-16.0) g/dL Hct 43.6 (36-46) % MCV 90.2 (80-100) fL MCH 30.1 (26-34) PG MCHC 33.4 (30-36) % RDW 12.6 (11.6-14.8) % Plt Count 275 (150-400) X10^3/uL Neut % (Auto) 66.6 (50-75) % Lymph % (Auto) 22.2 L (25-40) % [place] % (Auto) 6.9 (3-14) % Eos % (Auto) 3.5 (2-4) % Baso % (Auto) 0.8 (0-2) % Neut # (Auto) 5200 (6967-5091) /uL Lymph # (Auto) 1700 (7748-9124) /uL [place] # (Auto) 500 (0-900) /uL Eos # (Auto) 300 (0-450) /uL Baso # (Auto) 100 (0-100) /uL Sodium 138 (137-145) mmol/L Potassium 4.1 (3.4-5.1) mmol/L Chloride 105 (98-107) mmol/L Carbon Dioxide 22 (22-32) mmol/L BUN 20 H (7-17) mg/dL Creatinine 0.70 (0.52-1.04) mg/dL Estimated GFR > 60.0 (>60) mL/min BUN/Creatinine Ratio 28.6 H (6-22) Glucose 83 (70-100) mg/dL Calcium 9.1 (8.4-10.2) mg/dL Total Bilirubin 0.4 (0.2-1.3) mg/dL AST 19 (14-36) IU/L ALT 31 (9-52) IU/L Alkaline Phosphatase 44 (38-126) U/L Total Protein 7.4 (6.3-8.2) g/dL Albumin 4.1 (3.5-5.0) g/dL Globulin 3.3 (1.7-4.1) g/dL Albumin/Globulin Ratio 1.2 (1.0-2.8) Lipase 87 (23-300) U/L Point of care testing: Point of Care Testing Test Results Negative Urine Dip Bedside Urine Glucose Negative Bedside Urine Bilirubin - Negative Bedside Urine Ketone - Negative Urine Specific [place] 1.030 Bedside Urine Occult Blood - Negative Bedside Urine pH 5.5 Bedside Urine Protein +/- 15 Bedside Urine Urobilinogen - Negative Bedside Urine Nitrite - Negative Bedside Urine Leukocytes - Negative Esterase Imaging Data Pelvic US: Radiologist's impression: [address] [address] Ultrasound Report Signed Patient: Kaylin Stevenson EMR#: [id number] : 1995Acct:[id number] Age/Sex: 23 / FDate of Service: 10/02/18 Loc: ED Accession Number: [id number] Procedure: US pelvic complete Ordering Provider: Ethan Hebert PROCEDURE: US PELVIC COMPLETE INDICATIONS: VAGINAL AND RECTAL BLEEDING 2 WEEKS POST ENDOMETRIOSIS SURGE TECHNIQUE: Real-time scanning was performed of the pelvic organs, with image documentation. Additional endovaginal scanning was necessary due to incomplete visualization of the adnexal and endometrial structures by transabdominal scanning. COMPARISON: [facility], US, US PELVIC COMPLETE, 09/06/2018, 12:02. [facility], CT, CT ABDOMEN PELVIS W CON, 09/06/2018, 11:20. FINDINGS: Transabdominal scanning: Limited scanning through the kidneys shows no hydronephrosis. No pathologic free abdominal or pelvic fluid. A trace amount of free fluid is felt to be physiologic, within the pelvis. Endovaginal scanning: Uterus: Uterus is normal in size at 8.1 x 3.0 x 4.3 cm. The endometrium measures 2 mm in combined thickness. Mild heterogeneity on the anterior and posterior ayala of the uterus with mildly increased vascularity is identified. This could potentially represent small uterine fibroids. No fluid is seen within the endometrium. Ovaries: The right ovary is normal in size and measures 3.2 x 2.0 x 2.4 cm. The left ovary measures 5.0 x 1.4 x 1.6 cm. Both ovaries are normal in size without cystic or solid abnormality. Subcentimeter follicles are present, bilaterally. IMPRESSION: 1. Heterogeneity and increased vascularity of the uterus is nonspecific and may represent small uterine fibroids. Infectious endometritis or less likely adenomyosis cannot be excluded. The need for better characterization utilizing contrast- enhanced MRI of the pelvis may be determined clinically. 2. Unremarkable ovaries. Dictated by: Braden Lara M.D. on 10/02/2018 at 15:16 Approved by: Braden Lara M.D. on 10/02/2018 at 15:20 MDM Narrative Medical decision making narrative: Pelvic ultrasound was obtained and does show some increased vascularity to the uterus which is nonspecific. CBC and Chem panel were obtained and were unremarkable. urinalysis was negative for urinary tract infection and also . Wet prep was obtained was unremarkable. vaginal culture is obtained and pending. Patient did have some cervical tenderness on exam. Fecal occult stool was negative. discussed case with Dr. Haile on-call OBGYN and informed of symptoms and laboratory/imaging findings. She is instructed to follow up with OBGYN at the [facility] patient to call the number tomorrow to schedule follow-up appointment. Dr. Haile states that they will see her in the next couple of days. [id number] ibuprofen as needed for any discomfort. Small amount of Ferron is prescribed for breakthrough pain. For any worsening symptoms return to the emergency room. <Cindy Ferguson, DO - Last Filed: 10/03/18 19:20> Lab Data Lab Results 10/02/18 10/02/18 Range/Units 15:48 15:48 WBC 7.7 (4.5-11.0) X10^3/uL RBC 4.84 (4.0-5.2) X10^6/uL Hgb 14.6 (12.0-16.0) g/dL Hct 43.6 (36-46) % MCV 90.2 (80-100) fL MCH 30.1 (26-34) PG MCHC 33.4 (30-36) % RDW 12.6 (11.6-14.8) % Plt Count 275 (150-400) X10^3/uL Neut % (Auto) 66.6 (50-75) % Lymph % (Auto) 22.2 L (25-40) % [place] % (Auto) 6.9 (3-14) % Eos % (Auto) 3.5 (2-4) % Baso % (Auto) 0.8 (0-2) % Neut # (Auto) 5200 (7076-1266) /uL Lymph # (Auto) 1700 (3645-7036) /uL [place] # (Auto) 500 (0-900) /uL Eos # (Auto) 300 (0-450) /uL Baso # (Auto) 100 (0-100) /uL Sodium 138 (137-145) mmol/L Potassium 4.1 (3.4-5.1) mmol/L Chloride 105 (98-107) mmol/L Carbon Dioxide 22 (22-32) mmol/L BUN 20 H (7-17) mg/dL Creatinine 0.70 (0.52-1.04) mg/dL Estimated GFR > 60.0 (>60) mL/min BUN/Creatinine Ratio 28.6 H (6-22) Glucose 83 (70-100) mg/dL Calcium 9.1 (8.4-10.2) mg/dL Total Bilirubin 0.4 (0.2-1.3) mg/dL AST 19 (14-36) IU/L ALT 31 (9-52) IU/L Alkaline Phosphatase 44 (38-126) U/L Total Protein 7.4 (6.3-8.2) g/dL Albumin 4.1 (3.5-5.0) g/dL Globulin 3.3 (1.7-4.1) g/dL Albumin/Globulin Ratio 1.2 (1.0-2.8) Lipase 87 (23-300) U/L Point of care testing: Point of Care Testing Test Results Negative Urine Dip Bedside Urine Glucose Negative Bedside Urine Bilirubin - Negative Bedside Urine Ketone - Negative Urine Specific [place] 1.030 Bedside Urine Occult Blood - Negative Bedside Urine pH 5.5 Bedside Urine Protein +/- 15 Bedside Urine Urobilinogen - Negative Bedside Urine Nitrite - Negative Bedside Urine Leukocytes - Negative Esterase Discharge Plan Departure Patient Disposition: Home Clinical Impression: Pelvic pain Discharge Date/Time: 10/02/18 18:40 Interventions: ED Discharge Assessment Last Done: 10/02/18 18:39 Instructions: DI for Pelvic Pain Activity Restrictions/Additional Instructions: Laboratory results and imaging today were unremarkable. you are referred to OBGYN for further evaluation. Call the number at number provided to schedule follow-up appointment. Use [id number] ibuprofen as needed for any discomfort. Small amount of Ferron is prescribed for breakthrough pain. No driving while on the Ferron. For any worsening symptoms return to the emergency room. Prescriptions: New hydrocodone-acetaminophen [Ferron] 5-325 mg tablet 1 tab PO Q6H PRN (Reason: pain) Qty: 10 RF: 0 No Action piroxicam 20 MG capsule 20 mg PO DAILY Qty: 0 RF: 0 zolpidem [Ambien] 10 mg Tablet 10 mg PO BEDTIME PRN (Reason: Insomnia) RF: 0 Xeljanz XR 11 mg Tablet Extended Release 24 Hr 11 mg PO QPM RF: 0 clonazepam 1 mg tablet 1 mg PO QID PRN (Reason: Anxiety) RF: 0 folic acid 1 mg tablet 1 - 3 mg PO QPM RF: 0 metoprolol succinate 25 mg tablet extended release 24 hr 50 mg PO QPM RF: 0 hydroxyzine pamoate 25 mg capsule 25 - 50 mg PO PRN PRN (Reason: panic attacks) RF: 0 escitalopram oxalate 20 mg tablet 20 mg PO QPM RF: 0 levocetirizine 5 mg tablet 5 mg PO QPM RF: 0 Rasuvo (PF) 25 mg/0.5 mL auto-injector 1 dose subcut FR RF: 0 oxycodone-acetaminophen 10-325 mg tablet 1 tab PO Q6H PRN (Reason: Pain, Severe) RF: 0 Nortrel 1/35 (28) 1-35 mg-mcg tablet 1 tab PO QPM RF: 0 ondansetron 8 mg tablet,disintegrating 8 mg PO TID PRN (Reason: Nausea) RF: 0 gabapentin 100 mg capsule 100 - 300 mg PO TID PRN (Reason: pain) RF: 0 Nortrel 1/35 (28) 1-35 mg-mcg tablet RF: 0 oxycodone 5 mg tablet 5 - 10 mg PO Q4H PRN (Reason: Pain, Severe) RF: 0 Referrals: Rebecca Khan MD [Primary Care Provider] - <Cindy Ferguson DO - Last Filed: 10/03/18 19:20> Cosign ED Attending Cosignature Attestation: I was immediately available in the department for consultation. This documentation has been reviewed and I agree with assessment and plan. Supervised by Cindy Ferguson DO
== END 2018-10-02 18:40 | disposition home or self-care (01) ==
PROVIDERS: Emergency Provider Nurse Practitioner Family; PCP Family Medicine
DX: R10.2 Pelvic and perineal pain (principal)
CPT/HCPCS: 36415; 76830; 76856; 80053; 81003; 81025; 83690; 85025; 87070; 87205; 87210; 99282; 99284

== ENCOUNTER 2018-11-30 10:25 | Emergency (ER) | payer OTHER, SELFPAY ==
[2018-11-30 10:45] VITALS: BP 110/77; PULSE 78; RESP 20; TEMP 36.3; O2SAT 100
[2018-11-30 12:27] VITALS: BP 113/76; PULSE 62; RESP 18; O2SAT 99
--- NOTE | 2018-11-30 12:50 | ED.ABDPAIN ---
HPI - Abdominal Pain <Neda DurhamLIANE - Last Filed: 11/30/18 23:26> General Chief Complaint: Abdominal Pain Stated Complaint: Abd pain and cramping,rectal bleeding Time Seen by Provider: 11/30/18 12:14 Source: patient Mode of arrival: ambulatory Limitations: no limitations History of Present Illness HPI narrative: 23-year-old female, with a past medical history of ankylosing spondylosis, rheumatoid arthritis, multiple neoplasm type 1, and endometriosis, presents to the emergency department today for complaints of bright red bleeding with soft stools present in the toilet and on the toilet paper for the past week that has progressed to 1 episode of dark red stools this morning after a brief period of constipation for a few days prior. Associated vomiting for 48 hours without hematemesis, aching constant lower right and upper right abdominal pain as well as lower back pain that is worse with bowel movement, nausea, bilateral 9/10 aching knee pain and mild swelling. Was seen by her PCP a few days ago for rectal bleeding no hemorrhoids were found, she was given Hemoccult test to take home which she described as positive. She has had 1 stool today that was soft and had dark red blood on stool and on toilet paper. Denies dizziness, syncope, chest pain, shortness of breath, diarrhea, hematemesis, red inflamed joints, or history of bowel problems or concerns. MD complaint: abdominal pain Onset (ago): day(s) Pain Consistency: constant Location: RUQ and RLQ Severity scale (1-10): 9 Quality: aching and sharp Radiation: other (Lower back pain) Relieving factors: nothing Exacerbating factors: bowel movement Associated symptoms: vomiting Related Data Patient : No Home Medications Medication Instructions Recorded Confirmed piroxicam 20 mg PO DAILY #0 04/07/17 11/30/18 tofacitinib [Xeljanz XR] 11 mg PO QPM 01/24/18 10/02/18 zolpidem [Ambien] 10 mg PO BEDTIME PRN 01/24/18 11/30/18 escitalopram oxalate 20 mg PO QPM 06/05/18 11/30/18 folic acid 1 - 3 mg PO QPM 06/05/18 11/30/18 hydroxyzine pamoate 25 - 50 mg PO PRN PRN 06/05/18 10/02/18 levocetirizine 5 mg PO QPM 06/05/18 11/30/18 metoprolol succinate 50 mg PO QPM 06/05/18 11/30/18 methotrexate (PF) [Rasuvo (PF)] 1 dose SUBCUT FR 08/08/18 09/06/18 norethindrone-ethin estradiol 1 tab PO QPM 09/06/18 11/30/18 [Nortrel 1/35 (28)] oxycodone-acetaminophen 1 tab PO Q6H PRN 09/06/18 11/30/18 gabapentin 100 - 300 mg PO TID PRN 10/02/18 10/02/18 ondansetron 8 mg PO TID PRN 10/02/18 10/02/18 certolizumab pegol [Cimzia Starter 11/30/18 Kit] piroxicam 11/30/18 Previous Rx's Medication Instructions Recorded tramadol 50 mg tablet 50 mg PO TID PRN #30 tab 10/19/18 amoxicillin-pot clavulanate 1 tab PO BID #7 tab 11/30/18 [Augmentin] metoclopramide HCl 10 mg PO Q6H PRN #7 tab 11/30/18 omeprazole 20 mg PO DAILY #30 cap 11/30/18 Allergies Allergy/AdvReac Type Severity Reaction Status Date / Time tioconazole Allergy Intermediate Rash Verified 10/02/18 13:20 [From Monistat 1 (tioconazole)] Review of Systems <LIANE Gallegos - Last Filed: 11/30/18 23:26> Review of Systems REVIEW OF SYSTEMS: GENERAL: Denies fever, chills, malaise, or wt. loss. HENT: No head trauma, hearing loss, rhinorrhea, epistaxis, sinus pressure, sore throat, or dysphagia. EYES: No loss of vision, double vision, eye pain, or irritation. CARDIOVASCULAR: No chest pain, palpitations, edema, syncope, or orthopnea. RESPIRATORY: No shortness of breath, cough, or wheeze. GASTROINTESTINAL: See HPI. Complains of nausea, vomiting, blood in stool, constipation, and abdominal pain. GENITOURINARY: No flank pain, urinary incontinence, hesitancy, frequency, or dysuria. No vaginal discharge, bleeding, or dyspareunia. MUSCULOSKELETAL: No pain, weakness, or deformities. INTEGUMENTARY: No rash, lesions, or pruritus. NEURO: No numbness, tingling, memory loss, confusion, or headaches. PSYCH: No behavior or mood changes. ENDOCRINOLOGY: No hair loss of temperature intolerance. History of multiple autoimmune disorders. HEMATOLOGY: No easy bruising. LYMPHATIC: No lymphadenopathy. PFSH <LIANE Gallegos - Last Filed: 11/30/18 23:26> Medical History Rheumatoid arthritis (Acute) Social History Smoking Status: Never smoker Social History Smoking Status: Never smoker Exam <LIANE Gallegos - Last Filed: 11/30/18 23:26> Initial Vital Signs Initial Vital Signs: Vital Signs Temperature 97.3 F L 11/30/18 10:45 Pulse Rate 78 11/30/18 10:45 Respiratory Rate 20 11/30/18 10:45 Blood Pressure 110/77 11/30/18 10:45 Pulse Oximetry 100 11/30/18 10:45 PHYSICAL EXAMINATION: GENERAL: Well groomed, alert, and cooperative Answers questions promptly and appropriately. Vital signs noted. HENT: Normocephalic, atraumatic. Ear canals patent. Oral mucosa is pink and moist, no caries or lesions present. Pharynx without erythema. EYES: PERRLA, EOMIs, conjunctiva pink, sclera white, no periorbital swelling. NECK: Full range of motion. LYMPH: No lymphadenopathy. CHEST: Normal to inspection and without deformities. CARDIOVASCULAR: S1 and S2 sounds normal. Regular rate and rhythm, no murmurs, clicks, or bruits. No pedal edema. RESPIRATORY: Normal respiratory rate, trachea midline, airway patent. No stridor, nasal flaring or accessory muscle use. Lungs are clear in all romero without wheeze, rhonchi, or crackles. GASTROINTESTINAL: Bowel sounds normoactive. Moderate right lower, right upper, and lower mid abdominal tenderness with deep palpation. No rebound tenderness or no Quinteros sign, No organomegaly or masses. RECTAL: Patent, no hemorrhoids or masses palpated. Stool appeared light brown. Positive guaiac. MUSCULOSKELETAL: Normal gait and coordination. Equal tone and mass bilaterally. No spinal tenderness or deformities. EXTREMITIES: CMS intact. Full range of motion and 5/5 strength to upper and lower extremities. Difficult to determine if swelling to bilateral knees is present, no increased warmth or redness. SKIN: Warm, dry, soft, appropriate color for ethnicity. No lesions, rashes, or wounds. NEURO: Alert and Oriented X 3. Good coordination. No ataxia, or sensory deficits, or cognitive issues. PSYCH: Appropriate affect and mood. <Funmilayo Watts MD - Last Filed: 12/04/18 07:07> Initial Vital Signs Initial Vital Signs: Vital Signs Temperature 97.3 F L 11/30/18 10:45 Pulse Rate 78 11/30/18 10:45 Respiratory Rate 20 11/30/18 10:45 Blood Pressure 110/77 11/30/18 10:45 Pulse Oximetry 100 11/30/18 10:45 Course <LIANE Gallegos - Last Filed: 11/30/18 23:26> Course Narrative: Patient given IV fluid, Zofran (for nausea), pantoprazole (positive occult blood), and Toradol (for pain and anti-inflammatory properties). Patient still complains of pain and nausea. Reglan ordered. LFTs slightly elevated self ultrasound ordered due to right upper quadrant pain. Spoke with patient about importance of getting a colonoscopy. Orders Ordered: Discontinued Medications Sodium Chloride (Normal Saline 0.9%) 1,000 mls @ 1,000 mls/hr IV BOLUS ONE Stop: 11/30/18 13:46 Last Infusion: 11/30/18 14:52 Dose: 0 mls/hr Admin: 11/30/18 13:26 Dose: 1,000 mls/hr Ketorolac Tromethamine (Toradol) 30 mg IV NOW ONE Stop: 11/30/18 12:48 Last Admin: 11/30/18 13:26 Dose: 30 mg Metoclopramide HCl (Reglan) 10 mg IV NOW ONE Stop: 11/30/18 14:49 Last Admin: 11/30/18 14:52 Dose: 10 mg Ondansetron HCl (Zofran) 4 mg IV NOW ONE Stop: 11/30/18 12:48 Last Admin: 11/30/18 13:26 Dose: 4 mg Pantoprazole Sodium (Protonix) 40 mg IV NOW ONE Stop: 11/30/18 12:48 Last Admin: 11/30/18 13:27 Dose: 40 mg Consultations Consultation #1: Patient staffed with Dr. Watts who agrees [facility] plan of care. Vital Signs - 8 hr 11/30/18 10:45 11/30/18 12:27 11/30/18 13:15 Temperature 97.3 F L Pulse Rate 78 62 58 L Respiratory Rate 20 18 16 Blood Pressure 110/77 Blood Pressure [Left Arm] 113/76 140/87 Pulse Oximetry 100 99 100 11/30/18 14:22 Temperature Pulse Rate 55 L Respiratory Rate 16 Blood Pressure Blood Pressure [Left Arm] 105/66 Pulse Oximetry 100 <Funmilayo Watts MD - Last Filed: 12/04/18 07:07> Orders Ordered: Discontinued Medications Sodium Chloride (Normal Saline 0.9%) 1,000 mls @ 1,000 mls/hr IV BOLUS ONE Stop: 11/30/18 13:46 Last Infusion: 11/30/18 14:52 Dose: 0 mls/hr Admin: 11/30/18 13:26 Dose: 1,000 mls/hr Ketorolac Tromethamine (Toradol) 30 mg IV NOW ONE Stop: 11/30/18 12:48 Last Admin: 11/30/18 13:26 Dose: 30 mg Metoclopramide HCl (Reglan) 10 mg IV NOW ONE Stop: 11/30/18 14:49 Last Admin: 11/30/18 14:52 Dose: 10 mg Ondansetron HCl (Zofran) 4 mg IV NOW ONE Stop: 11/30/18 12:48 Last Admin: 11/30/18 13:26 Dose: 4 mg Pantoprazole Sodium (Protonix) 40 mg IV NOW ONE Stop: 11/30/18 12:48 Last Admin: 11/30/18 13:27 Dose: 40 mg Vital Signs - 8 hr 11/30/18 10:45 11/30/18 12:27 11/30/18 13:15 Temperature 97.3 F L Pulse Rate 78 62 58 L Respiratory Rate 20 18 16 Blood Pressure 110/77 Blood Pressure [Left Arm] 113/76 140/87 Pulse Oximetry 100 99 100 11/30/18 14:22 Temperature Pulse Rate 55 L Respiratory Rate 16 Blood Pressure Blood Pressure [Left Arm] 105/66 Pulse Oximetry 100 MDM - Abdominal Pain <Neda DurhamLIANE - Last Filed: 11/30/18 23:26> Medical Records Attestation: I reviewed the patient's medical records. Lab Data Attestation: I reviewed the patient's lab results. Result diagrams: 11/30/18 13:30 11/30/18 13:30 Lab Results 11/30/18 11/30/18 11/30/18 Range/Units 13:30 13:30 13:30 WBC 4.7 (4.5-11.0) X10^3/uL RBC 4.79 (4.0-5.2) X10^6/uL Hgb 14.4 (12.0-16.0) g/dL Hct 42.0 (36-46) % MCV 87.6 (80-100) fL MCH 30.0 (26-34) PG MCHC 34.2 (30-36) % RDW 12.9 (11.6-14.8) % Plt Count 244 (150-400) X10^3/uL Neut % (Auto) 38.8 L (50-75) % Lymph % (Auto) 41.6 H (25-40) % Zapata % (Auto) 13.5 (3-14) % Eos % (Auto) 4.8 H (2-4) % Baso % (Auto) 1.3 (0-2) % Neut # (Auto) 1800 (2578-0141) /uL Lymph # (Auto) 1900 (7533-6360) /uL Zapata # (Auto) 600 (0-900) /uL Eos # (Auto) 200 (0-450) /uL Baso # (Auto) 100 (0-100) /uL Sodium 139 (137-145) mmol/L Potassium 4.0 (3.4-5.1) mmol/L Chloride 101 (98-107) mmol/L Carbon Dioxide 31 (22-32) mmol/L BUN 16 (7-17) mg/dL Creatinine 0.80 (0.52-1.04) mg/dL Estimated GFR > 60.0 (>60) mL/min BUN/Creatinine Ratio 20.0 (6-22) Glucose 88 (70-100) mg/dL Calcium 9.6 (8.4-10.2) mg/dL Total Bilirubin 0.6 (0.2-1.3) mg/dL AST 65 H (14-36) IU/L ALT 94 H (9-52) IU/L Alkaline Phosphatase 51 (38-126) U/L Total Protein 7.4 (6.3-8.2) g/dL Albumin 4.3 (3.5-5.0) g/dL Globulin 3.1 (1.7-4.1) g/dL Albumin/Globulin Ratio 1.4 (1.0-2.8) Lipase 65 (23-300) U/L Urine RBC (0-5/HPF) Urine WBC (0-5/HPF) Ur Squamous Epith Cells (0-5/HPF) Amorphous Sediment Urine Bacteria (None) Urine Mucus (Negative) Ur Culture Indicated? Blood Type O Positive Antibody Screen Negative 11/30/18 Range/Units 14:05 WBC (4.5-11.0) X10^3/uL RBC (4.0-5.2) X10^6/uL Hgb (12.0-16.0) g/dL Hct (36-46) % MCV (80-100) fL MCH (26-34) PG MCHC (30-36) % RDW (11.6-14.8) % Plt Count (150-400) X10^3/uL Neut % (Auto) (50-75) % Lymph % (Auto) (25-40) % Zapata % (Auto) (3-14) % Eos % (Auto) (2-4) % Baso % (Auto) (0-2) % Neut # (Auto) (6477-1509) /uL Lymph # (Auto) (6904-2754) /uL Zapata # (Auto) (0-900) /uL Eos # (Auto) (0-450) /uL Baso # (Auto) (0-100) /uL Sodium (137-145) mmol/L Potassium (3.4-5.1) mmol/L Chloride (98-107) mmol/L Carbon Dioxide (22-32) mmol/L BUN (7-17) mg/dL Creatinine (0.52-1.04) mg/dL Estimated GFR (>60) mL/min BUN/Creatinine Ratio (6-22) Glucose (70-100) mg/dL Calcium (8.4-10.2) mg/dL Total Bilirubin (0.2-1.3) mg/dL AST (14-36) IU/L ALT (9-52) IU/L Alkaline Phosphatase (38-126) U/L Total Protein (6.3-8.2) g/dL Albumin (3.5-5.0) g/dL Globulin (1.7-4.1) g/dL Albumin/Globulin Ratio (1.0-2.8) Lipase (23-300) U/L Urine RBC 0-1/hpf (0-5/HPF) Urine WBC 5-10/hpf H (0-5/HPF) Ur Squamous Epith Cells 5-10 /hpf H (0-5/HPF) Amorphous Sediment 1+ Urine Bacteria Moderate (10-30) H (None) Urine Mucus 1+ H (Negative) Ur Culture Indicated? Specimen cultured Blood Type Antibody Screen Point of care testing: Point of Care Testing Test Results Negative Urine Dip Bedside Urine Glucose Negative Bedside Urine Bilirubin - Negative Bedside Urine Ketone - Negative Urine Specific Garfield 1.025 Bedside Urine Occult Blood +/- Bedside Urine pH 6.0 Bedside Urine Protein - Negative Bedside Urine Urobilinogen - Negative Bedside Urine Nitrite - Negative Bedside Urine Leukocytes + 70 Esterase Imaging Data US - abdomen: Radiologist's impression: [address] [address] Ultrasound Report Signed Patient: Kaylin Stevenson EMR#: [id number] : 1995Acct:[id number] Age/Sex: 23 FDate of Service: 11/30/18 Loc: ED Accession Number: [id number] Procedure: US abdomen limited Ordering Provider: Neda Durham PROCEDURE: US ABDOMEN LIMITED INDICATIONS: ELEVATED LFTs, RUQ PAIN, N/V TECHNIQUE: Real-time focused scanning was performed of the abdomen, with image documentation. COMPARISON: [facility], MR, MR ABDOMEN WO/W CON, 06/14/2018, 16:47. [facility], CT, CT ABDOMEN PELVIS W CON, 09/06/2018, 11:20. FINDINGS: Liver demonstrates normal size and echotexture. There is a 4 mm echogenic focus in the anterior wall of gallbladder without ring down artifact or shadowing. No gallstones. No gallbladder wall thickening, pericholecystic fluid or sonographic Quinteros's sign. Visualized pancreas is normal. No intrahepatic or extra hepatic biliary dilation. Common bile duct measures 4.2 mm. IMPRESSION: 1. Normal ultrasound appearance of liver and pancreas. 2. A 4 mm echogenic focus of gallbladder, which may be a small polyp. No gallstones or ultrasound findings to suggest acute cholecystitis. Dictated by: Priscilla Cotton M.D. on 11/30/2018 at 15:54 Approved by: Priscilla Cotton M.D. on 11/30/2018 at 15:58 [facility] Narrative Medical decision making narrative: As discussed with patient, unsure of cause of rectal bleeding and abdominal pain. Labs are stable at this point, patient instructed to with primary care provider for further testing such as a colonoscopy. Ppi given to treat rectal bleeding and has a a medication given as well. Abdominal ultrasound was ordered due to right upper quadrant pain and elevated liver enzymes. Patient educated about liver enzymes, an incidental polyp on gallbladder. Strict return precautions given and follow-up instructions discussed. Patient does not appear to be emergent distress and is safe to discharge home at this time due to labs, imaging, and exam. Patient agreeable with plan. <Funmilayo Watts MD - Last Filed: 12/04/18 07:07> Lab Data Lab Results 11/30/18 11/30/18 11/30/18 Range/Units 13:30 13:30 13:30 WBC 4.7 (4.5-11.0) X10^3/uL RBC 4.79 (4.0-5.2) X10^6/uL Hgb 14.4 (12.0-16.0) g/dL Hct 42.0 (36-46) % MCV 87.6 (80-100) fL MCH 30.0 (26-34) PG MCHC 34.2 (30-36) % RDW 12.9 (11.6-14.8) % Plt Count 244 (150-400) X10^3/uL Neut % (Auto) 38.8 L (50-75) % Lymph % (Auto) 41.6 H (25-40) % Zapata % (Auto) 13.5 (3-14) % Eos % (Auto) 4.8 H (2-4) % Baso % (Auto) 1.3 (0-2) % Neut # (Auto) 1800 (1477-7636) /uL Lymph # (Auto) 1900 (3299-1068) /uL Zapata # (Auto) 600 (0-900) /uL Eos # (Auto) 200 (0-450) /uL Baso # (Auto) 100 (0-100) /uL Sodium 139 (137-145) mmol/L Potassium 4.0 (3.4-5.1) mmol/L Chloride 101 (98-107) mmol/L Carbon Dioxide 31 (22-32) mmol/L BUN 16 (7-17) mg/dL Creatinine 0.80 (0.52-1.04) mg/dL Estimated GFR > 60.0 (>60) mL/min BUN/Creatinine Ratio 20.0 (6-22) Glucose 88 (70-100) mg/dL Calcium 9.6 (8.4-10.2) mg/dL Total Bilirubin 0.6 (0.2-1.3) mg/dL AST 65 H (14-36) IU/L ALT 94 H (9-52) IU/L Alkaline Phosphatase 51 (38-126) U/L Total Protein 7.4 (6.3-8.2) g/dL Albumin 4.3 (3.5-5.0) g/dL Globulin 3.1 (1.7-4.1) g/dL Albumin/Globulin Ratio 1.4 (1.0-2.8) Lipase 65 (23-300) U/L Urine RBC (0-5/HPF) Urine WBC (0-5/HPF) Ur Squamous Epith Cells (0-5/HPF) Amorphous Sediment Urine Bacteria (None) Urine Mucus (Negative) Ur Culture Indicated? Blood Type O Positive Antibody Screen Negative 11/30/18 Range/Units 14:05 WBC (4.5-11.0) X10^3/uL RBC (4.0-5.2) X10^6/uL Hgb (12.0-16.0) g/dL Hct (36-46) % MCV (80-100) fL MCH (26-34) PG MCHC (30-36) % RDW (11.6-14.8) % Plt Count (150-400) X10^3/uL Neut % (Auto) (50-75) % Lymph % (Auto) (25-40) % Zapata % (Auto) (3-14) % Eos % (Auto) (2-4) % Baso % (Auto) (0-2) % Neut # (Auto) (9144-8910) /uL Lymph # (Auto) (6696-1136) /uL Zapata # (Auto) (0-900) /uL Eos # (Auto) (0-450) /uL Baso # (Auto) (0-100) /uL Sodium (137-145) mmol/L Potassium (3.4-5.1) mmol/L Chloride (98-107) mmol/L Carbon Dioxide (22-32) mmol/L BUN (7-17) mg/dL Creatinine (0.52-1.04) mg/dL Estimated GFR (>60) mL/min BUN/Creatinine Ratio (6-22) Glucose (70-100) mg/dL Calcium (8.4-10.2) mg/dL Total Bilirubin (0.2-1.3) mg/dL AST (14-36) IU/L ALT (9-52) IU/L Alkaline Phosphatase (38-126) U/L Total Protein (6.3-8.2) g/dL Albumin (3.5-5.0) g/dL Globulin (1.7-4.1) g/dL Albumin/Globulin Ratio (1.0-2.8) Lipase (23-300) U/L Urine RBC 0-1/hpf (0-5/HPF) Urine WBC 5-10/hpf H (0-5/HPF) Ur Squamous Epith Cells 5-10 /hpf H (0-5/HPF) Amorphous Sediment 1+ Urine Bacteria Moderate (10-30) H (None) Urine Mucus 1+ H (Negative) Ur Culture Indicated? Specimen cultured Blood Type Antibody Screen Point of care testing: Point of Care Testing Test Results Negative Urine Dip Bedside Urine Glucose Negative Bedside Urine Bilirubin - Negative Bedside Urine Ketone - Negative Urine Specific Garfield 1.025 Bedside Urine Occult Blood +/- Bedside Urine pH 6.0 Bedside Urine Protein - Negative Bedside Urine Urobilinogen - Negative Bedside Urine Nitrite - Negative Bedside Urine Leukocytes + 70 Esterase Discharge Plan Departure Patient Disposition: Home Clinical Impression: RB (rectal bleeding) Abdominal pain Qualifiers: Abdominal location: generalized Qualified Code(s): R10.84 - Generalized abdominal pain UTI (urinary tract infection) Qualifiers: Urinary tract infection type: acute cystitis Hematuria presence: with hematuria Qualified Code(s): N30.01 - Acute cystitis with hematuria Discharge Date/Time: 11/30/18 16:36 Interventions: ED Discharge Assessment Last Done: 11/30/18 16:36 Instructions: DI for Abdominal Pain-Adult, Gastrointestinal Bleeding Activity Restrictions/Additional Instructions: Thank you for entrusting me with your care today. As discussed, it is important that you follow-up with her primary care provider to get a colonoscopy to determine the cause of the rectal bleeding. I prescribed omeprazole take this daily until instructed otherwise by her primary care provider. I have also included Reglan for nausea. We have discussed the results of the ultrasound and it appears that your gallbladder is normal at this time, other than a polyp noted on the imaging. Please return if you experience chest pain, shortness of breath, perfused GI bleeding, vomiting blood, increase in significant abdominal pain. I have also prescribed you antibiotics for a UTI. Prescriptions: New omeprazole 20 mg capsule,delayed release(DR/EC) 20 mg PO DAILY Qty: 30 RF: 0 metoclopramide HCl 10 mg tablet 10 mg PO Q6H PRN (Reason: nausea and vomiting) Qty: 7 RF: 0 amoxicillin-pot clavulanate [Augmentin] 500-125 mg tablet 1 tab PO BID Qty: 7 RF: 0 No Action piroxicam 20 MG capsule 20 mg PO DAILY Qty: 0 RF: 0 tramadol 50 mg tablet 50 mg PO TID PRN (Reason: pain) Qty: 30 RF: 0 zolpidem [Ambien] 10 mg Tablet 10 mg PO BEDTIME PRN (Reason: Insomnia) RF: 0 Xeljanz XR 11 mg Tablet Extended Release 24 Hr 11 mg PO QPM RF: 0 folic acid 1 mg tablet 1 - 3 mg PO QPM RF: 0 metoprolol succinate 25 mg tablet extended release 24 hr 50 mg PO QPM RF: 0 hydroxyzine pamoate 25 mg capsule 25 - 50 mg PO PRN PRN (Reason: panic attacks) RF: 0 escitalopram oxalate 20 mg tablet 20 mg PO QPM RF: 0 levocetirizine 5 mg tablet 5 mg PO QPM RF: 0 Rasuvo (PF) 25 mg/0.5 mL auto-injector 1 dose subcut FR RF: 0 piroxicam 20 mg capsule RF: 0 Cimzia Starter Kit 400 mg/2 mL (200 mg/mL x 2) syringe kit RF: 0 oxycodone-acetaminophen 10-325 mg tablet 1 tab PO Q6H PRN (Reason: Pain, Severe) RF: 0 Nortrel 1/35 (28) 1-35 mg-mcg tablet 1 tab PO QPM RF: 0 ondansetron 8 mg tablet,disintegrating 8 mg PO TID PRN (Reason: Nausea) RF: 0 gabapentin 100 mg capsule 100 - 300 mg PO TID PRN (Reason: pain) RF: 0 Referrals: Rebecca Khan MD [Primary Care Provider] -
--- NOTE | 2018-11-30 12:56 | ED_ITS ---
HPI - Abdominal Pain <Neda DurhamLIANE - Last Filed: 11/30/18 23:26> General Chief Complaint: Abdominal Pain Stated Complaint: Abd pain and cramping,rectal bleeding Time Seen by Provider: 11/30/18 12:14 Source: patient Mode of arrival: ambulatory Limitations: no limitations History of Present Illness HPI narrative: 23-year-old female, with a past medical history of ankylosing spondylosis, rheumatoid arthritis, multiple neoplasm type 1, and endometriosis, presents to the emergency department today for complaints of bright red bleeding with soft stools present in the toilet and on the toilet paper for the past week that has progressed to 1 episode of dark red stools this morning after a brief period of constipation for a few days prior. Associated vomiting for 48 hours without hematemesis, aching constant lower right and upper right abdominal pain as well as lower back pain that is worse with bowel movement, nausea, bilateral 9/10 aching knee pain and mild swelling. Was seen by her PCP a few days ago for rectal bleeding no hemorrhoids were found, she was given Hemoccult test to take home which she described as positive. She has had 1 stool today that was soft and had dark red blood on stool and on toilet paper. Denies dizziness, syncope, chest pain, shortness of breath, diarrhea, hematemesis, red inflamed joints, or history of bowel problems or concerns. MD complaint: abdominal pain Onset (ago): day(s) Pain Consistency: constant Location: RUQ and RLQ Severity scale (1-10): 9 Quality: aching and sharp Radiation: other (Lower back pain) Relieving factors: nothing Exacerbating factors: bowel movement Associated symptoms: vomiting Related Data Patient : No Home Medications Medication Instructions Recorded Confirmed piroxicam 20 mg PO DAILY #0 04/07/17 11/30/18 tofacitinib [Xeljanz XR] 11 mg PO QPM 01/24/18 10/02/18 zolpidem [Ambien] 10 mg PO BEDTIME PRN 01/24/18 11/30/18 escitalopram oxalate 20 mg PO QPM 06/05/18 11/30/18 folic acid 1 - 3 mg PO QPM 06/05/18 11/30/18 hydroxyzine pamoate 25 - 50 mg PO PRN PRN 06/05/18 10/02/18 levocetirizine 5 mg PO QPM 06/05/18 11/30/18 metoprolol succinate 50 mg PO QPM 06/05/18 11/30/18 methotrexate (PF) [Rasuvo (PF)] 1 dose SUBCUT FR 08/08/18 09/06/18 norethindrone-ethin estradiol 1 tab PO QPM 09/06/18 11/30/18 [Nortrel 1/35 (28)] oxycodone-acetaminophen 1 tab PO Q6H PRN 09/06/18 11/30/18 gabapentin 100 - 300 mg PO TID PRN 10/02/18 10/02/18 ondansetron 8 mg PO TID PRN 10/02/18 10/02/18 certolizumab pegol [Cimzia Starter 11/30/18 Kit] piroxicam 11/30/18 Previous Rx's Medication Instructions Recorded tramadol 50 mg tablet 50 mg PO TID PRN #30 tab 10/19/18 amoxicillin-pot clavulanate 1 tab PO BID #7 tab 11/30/18 [Augmentin] metoclopramide HCl 10 mg PO Q6H PRN #7 tab 11/30/18 omeprazole 20 mg PO DAILY #30 cap 11/30/18 Allergies Allergy/AdvReac Type Severity Reaction Status Date / Time tioconazole Allergy Intermediate Rash Verified 10/02/18 13:20 [From Monistat 1 (tioconazole)] Review of Systems <LIANE Gallegos - Last Filed: 11/30/18 23:26> Review of Systems REVIEW OF SYSTEMS: GENERAL: Denies fever, chills, malaise, or wt. loss. HENT: No head trauma, hearing loss, rhinorrhea, epistaxis, sinus pressure, sore throat, or dysphagia. EYES: No loss of vision, double vision, eye pain, or irritation. CARDIOVASCULAR: No chest pain, palpitations, edema, syncope, or orthopnea. RESPIRATORY: No shortness of breath, cough, or wheeze. GASTROINTESTINAL: See HPI. Complains of nausea, vomiting, blood in stool, constipation, and abdominal pain. GENITOURINARY: No flank pain, urinary incontinence, hesitancy, frequency, or dysuria. No vaginal discharge, bleeding, or dyspareunia. MUSCULOSKELETAL: No pain, weakness, or deformities. INTEGUMENTARY: No rash, lesions, or pruritus. NEURO: No numbness, tingling, memory loss, confusion, or headaches. PSYCH: No behavior or mood changes. ENDOCRINOLOGY: No hair loss of temperature intolerance. History of multiple autoimmune disorders. HEMATOLOGY: No easy bruising. LYMPHATIC: No lymphadenopathy. PFSH <LIANE Gallegos - Last Filed: 11/30/18 23:26> Medical History Rheumatoid arthritis (Acute) Social History Smoking Status: Never smoker Social History Smoking Status: Never smoker Exam <LIANE Gallegos - Last Filed: 11/30/18 23:26> Initial Vital Signs Initial Vital Signs: Vital Signs Temperature 97.3 F L 11/30/18 10:45 Pulse Rate 78 11/30/18 10:45 Respiratory Rate 20 11/30/18 10:45 Blood Pressure 110/77 11/30/18 10:45 Pulse Oximetry 100 11/30/18 10:45 PHYSICAL EXAMINATION: GENERAL: Well groomed, alert, and cooperative Answers questions promptly and appropriately. Vital signs noted. HENT: Normocephalic, atraumatic. Ear canals patent. Oral mucosa is pink and moist, no caries or lesions present. Pharynx without erythema. EYES: PERRLA, EOMIs, conjunctiva pink, sclera white, no periorbital swelling. NECK: Full range of motion. LYMPH: No lymphadenopathy. CHEST: Normal to inspection and without deformities. CARDIOVASCULAR: S1 and S2 sounds normal. Regular rate and rhythm, no murmurs, clicks, or bruits. No pedal edema. RESPIRATORY: Normal respiratory rate, trachea midline, airway patent. No stridor, nasal flaring or accessory muscle use. Lungs are clear in all romero without wheeze, rhonchi, or crackles. GASTROINTESTINAL: Bowel sounds normoactive. Moderate right lower, right upper, and lower mid abdominal tenderness with deep palpation. No rebound tenderness or no Quinteros sign, No organomegaly or masses. RECTAL: Patent, no hemorrhoids or masses palpated. Stool appeared light brown. Positive guaiac. MUSCULOSKELETAL: Normal gait and coordination. Equal tone and mass bilaterally. No spinal tenderness or deformities. EXTREMITIES: CMS intact. Full range of motion and 5/5 strength to upper and lower extremities. Difficult to determine if swelling to bilateral knees is present, no increased warmth or redness. SKIN: Warm, dry, soft, appropriate color for ethnicity. No lesions, rashes, or wounds. NEURO: Alert and Oriented X 3. Good coordination. No ataxia, or sensory deficits, or cognitive issues. PSYCH: Appropriate affect and mood. <Funmilayo Watts MD - Last Filed: 12/04/18 07:07> Initial Vital Signs Initial Vital Signs: Vital Signs Temperature 97.3 F L 11/30/18 10:45 Pulse Rate 78 11/30/18 10:45 Respiratory Rate 20 11/30/18 10:45 Blood Pressure 110/77 11/30/18 10:45 Pulse Oximetry 100 11/30/18 10:45 Course <LIANE Gallegos - Last Filed: 11/30/18 23:26> Course Narrative: Patient given IV fluid, Zofran (for nausea), pantoprazole (positive occult blood), and Toradol (for pain and anti-inflammatory properties). Patient still complains of pain and nausea. Reglan ordered. LFTs slightly elevated self ultrasound ordered due to right upper quadrant pain. Spoke with patient about importance of getting a colonoscopy. Orders Ordered: Discontinued Medications Sodium Chloride (Normal Saline 0.9%) 1,000 mls @ 1,000 mls/hr IV BOLUS ONE Stop: 11/30/18 13:46 Last Infusion: 11/30/18 14:52 Dose: 0 mls/hr Admin: 11/30/18 13:26 Dose: 1,000 mls/hr Ketorolac Tromethamine (Toradol) 30 mg IV NOW ONE Stop: 11/30/18 12:48 Last Admin: 11/30/18 13:26 Dose: 30 mg Metoclopramide HCl (Reglan) 10 mg IV NOW ONE Stop: 11/30/18 14:49 Last Admin: 11/30/18 14:52 Dose: 10 mg Ondansetron HCl (Zofran) 4 mg IV NOW ONE Stop: 11/30/18 12:48 Last Admin: 11/30/18 13:26 Dose: 4 mg Pantoprazole Sodium (Protonix) 40 mg IV NOW ONE Stop: 11/30/18 12:48 Last Admin: 11/30/18 13:27 Dose: 40 mg Consultations Consultation #1: Patient staffed with Dr. Watts who agrees [facility] plan of care. Vital Signs - 8 hr 11/30/18 10:45 11/30/18 12:27 11/30/18 13:15 Temperature 97.3 F L Pulse Rate 78 62 58 L Respiratory Rate 20 18 16 Blood Pressure 110/77 Blood Pressure [Left Arm] 113/76 140/87 Pulse Oximetry 100 99 100 11/30/18 14:22 Temperature Pulse Rate 55 L Respiratory Rate 16 Blood Pressure Blood Pressure [Left Arm] 105/66 Pulse Oximetry 100 <Funmilayo Watts MD - Last Filed: 12/04/18 07:07> Orders Ordered: Discontinued Medications Sodium Chloride (Normal Saline 0.9%) 1,000 mls @ 1,000 mls/hr IV BOLUS ONE Stop: 11/30/18 13:46 Last Infusion: 11/30/18 14:52 Dose: 0 mls/hr Admin: 11/30/18 13:26 Dose: 1,000 mls/hr Ketorolac Tromethamine (Toradol) 30 mg IV NOW ONE Stop: 11/30/18 12:48 Last Admin: 11/30/18 13:26 Dose: 30 mg Metoclopramide HCl (Reglan) 10 mg IV NOW ONE Stop: 11/30/18 14:49 Last Admin: 11/30/18 14:52 Dose: 10 mg Ondansetron HCl (Zofran) 4 mg IV NOW ONE Stop: 11/30/18 12:48 Last Admin: 11/30/18 13:26 Dose: 4 mg Pantoprazole Sodium (Protonix) 40 mg IV NOW ONE Stop: 11/30/18 12:48 Last Admin: 11/30/18 13:27 Dose: 40 mg Vital Signs - 8 hr 11/30/18 10:45 11/30/18 12:27 11/30/18 13:15 Temperature 97.3 F L Pulse Rate 78 62 58 L Respiratory Rate 20 18 16 Blood Pressure 110/77 Blood Pressure [Left Arm] 113/76 140/87 Pulse Oximetry 100 99 100 11/30/18 14:22 Temperature Pulse Rate 55 L Respiratory Rate 16 Blood Pressure Blood Pressure [Left Arm] 105/66 Pulse Oximetry 100 MDM - Abdominal Pain <Neda DurhamLIANE - Last Filed: 11/30/18 23:26> Medical Records Attestation: I reviewed the patient's medical records. Lab Data Attestation: I reviewed the patient's lab results. Result diagrams: 11/30/18 13:30 11/30/18 13:30 Lab Results 11/30/18 11/30/18 11/30/18 Range/Units 13:30 13:30 13:30 WBC 4.7 (4.5-11.0) X10^3/uL RBC 4.79 (4.0-5.2) X10^6/uL Hgb 14.4 (12.0-16.0) g/dL Hct 42.0 (36-46) % MCV 87.6 (80-100) fL MCH 30.0 (26-34) PG MCHC 34.2 (30-36) % RDW 12.9 (11.6-14.8) % Plt Count 244 (150-400) X10^3/uL Neut % (Auto) 38.8 L (50-75) % Lymph % (Auto) 41.6 H (25-40) % Calhoun % (Auto) 13.5 (3-14) % Eos % (Auto) 4.8 H (2-4) % Baso % (Auto) 1.3 (0-2) % Neut # (Auto) 1800 (8369-1153) /uL Lymph # (Auto) 1900 (8015-3438) /uL Calhoun # (Auto) 600 (0-900) /uL Eos # (Auto) 200 (0-450) /uL Baso # (Auto) 100 (0-100) /uL Sodium 139 (137-145) mmol/L Potassium 4.0 (3.4-5.1) mmol/L Chloride 101 (98-107) mmol/L Carbon Dioxide 31 (22-32) mmol/L BUN 16 (7-17) mg/dL Creatinine 0.80 (0.52-1.04) mg/dL Estimated GFR > 60.0 (>60) mL/min BUN/Creatinine Ratio 20.0 (6-22) Glucose 88 (70-100) mg/dL Calcium 9.6 (8.4-10.2) mg/dL Total Bilirubin 0.6 (0.2-1.3) mg/dL AST 65 H (14-36) IU/L ALT 94 H (9-52) IU/L Alkaline Phosphatase 51 (38-126) U/L Total Protein 7.4 (6.3-8.2) g/dL Albumin 4.3 (3.5-5.0) g/dL Globulin 3.1 (1.7-4.1) g/dL Albumin/Globulin Ratio 1.4 (1.0-2.8) Lipase 65 (23-300) U/L Urine RBC (0-5/HPF) Urine WBC (0-5/HPF) Ur Squamous Epith Cells (0-5/HPF) Amorphous Sediment Urine Bacteria (None) Urine Mucus (Negative) Ur Culture Indicated? Blood Type O Positive Antibody Screen Negative 11/30/18 Range/Units 14:05 WBC (4.5-11.0) X10^3/uL RBC (4.0-5.2) X10^6/uL Hgb (12.0-16.0) g/dL Hct (36-46) % MCV (80-100) fL MCH (26-34) PG MCHC (30-36) % RDW (11.6-14.8) % Plt Count (150-400) X10^3/uL Neut % (Auto) (50-75) % Lymph % (Auto) (25-40) % Calhoun % (Auto) (3-14) % Eos % (Auto) (2-4) % Baso % (Auto) (0-2) % Neut # (Auto) (8426-1590) /uL Lymph # (Auto) (5705-8417) /uL Calhoun # (Auto) (0-900) /uL Eos # (Auto) (0-450) /uL Baso # (Auto) (0-100) /uL Sodium (137-145) mmol/L Potassium (3.4-5.1) mmol/L Chloride (98-107) mmol/L Carbon Dioxide (22-32) mmol/L BUN (7-17) mg/dL Creatinine (0.52-1.04) mg/dL Estimated GFR (>60) mL/min BUN/Creatinine Ratio (6-22) Glucose (70-100) mg/dL Calcium (8.4-10.2) mg/dL Total Bilirubin (0.2-1.3) mg/dL AST (14-36) IU/L ALT (9-52) IU/L Alkaline Phosphatase (38-126) U/L Total Protein (6.3-8.2) g/dL Albumin (3.5-5.0) g/dL Globulin (1.7-4.1) g/dL Albumin/Globulin Ratio (1.0-2.8) Lipase (23-300) U/L Urine RBC 0-1/hpf (0-5/HPF) Urine WBC 5-10/hpf H (0-5/HPF) Ur Squamous Epith Cells 5-10 /hpf H (0-5/HPF) Amorphous Sediment 1+ Urine Bacteria Moderate (10-30) H (None) Urine Mucus 1+ H (Negative) Ur Culture Indicated? Specimen cultured Blood Type Antibody Screen Point of care testing: Point of Care Testing Test Results Negative Urine Dip Bedside Urine Glucose Negative Bedside Urine Bilirubin - Negative Bedside Urine Ketone - Negative Urine Specific Marana 1.025 Bedside Urine Occult Blood +/- Bedside Urine pH 6.0 Bedside Urine Protein - Negative Bedside Urine Urobilinogen - Negative Bedside Urine Nitrite - Negative Bedside Urine Leukocytes + 70 Esterase Imaging Data US - abdomen: Radiologist's impression: [address] [address] Ultrasound Report Signed Patient: Kalyin Stevenson EMR#: [id number] : 1995Acct:[id number] Age/Sex: 23 FDate of Service: 11/30/18 Loc: ED Accession Number: [id number] Procedure: US abdomen limited Ordering Provider: Neda Durham PROCEDURE: US ABDOMEN LIMITED INDICATIONS: ELEVATED LFTs, RUQ PAIN, N/V TECHNIQUE: Real-time focused scanning was performed of the abdomen, with image documentation. COMPARISON: [facility], MR, MR ABDOMEN WO/W CON, 06/14/2018, 16:47. [facility], CT, CT ABDOMEN PELVIS W CON, 09/06/2018, 11:20. FINDINGS: Liver demonstrates normal size and echotexture. There is a 4 mm echogenic focus in the anterior wall of gallbladder without ring down artifact or shadowing. No gallstones. No gallbladder wall thickening, pericholecystic fluid or sonographic Quinteros's sign. Visualized pancreas is normal. No intrahepatic or extra hepatic biliary dilation. Common bile duct measures 4.2 mm. IMPRESSION: 1. Normal ultrasound appearance of liver and pancreas. 2. A 4 mm echogenic focus of gallbladder, which may be a small polyp. No gallstones or ultrasound findings to suggest acute cholecystitis. Dictated by: Priscilla Cotton M.D. on 11/30/2018 at 15:54 Approved by: Priscilla Cotton M.D. on 11/30/2018 at 15:58 [facility] Narrative Medical decision making narrative: As discussed with patient, unsure of cause of rectal bleeding and abdominal pain. Labs are stable at this point, patient instructed to with primary care provider for further testing such as a colonoscopy. Ppi given to treat rectal bleeding and has a a medication given as well. Abdominal ultrasound was ordered due to right upper quadrant pain and elevated liver enzymes. Patient educated about liver enzymes, an incidental polyp on gallbladder. Strict return precautions given and follow-up instructions discussed. Patient does not appear to be emergent distress and is safe to discharge home at this time due to labs, imaging, and exam. Patient agreeable with plan. <Funmilayo Watts MD - Last Filed: 12/04/18 07:07> Lab Data Lab Results 11/30/18 11/30/18 11/30/18 Range/Units 13:30 13:30 13:30 WBC 4.7 (4.5-11.0) X10^3/uL RBC 4.79 (4.0-5.2) X10^6/uL Hgb 14.4 (12.0-16.0) g/dL Hct 42.0 (36-46) % MCV 87.6 (80-100) fL MCH 30.0 (26-34) PG MCHC 34.2 (30-36) % RDW 12.9 (11.6-14.8) % Plt Count 244 (150-400) X10^3/uL Neut % (Auto) 38.8 L (50-75) % Lymph % (Auto) 41.6 H (25-40) % Calhoun % (Auto) 13.5 (3-14) % Eos % (Auto) 4.8 H (2-4) % Baso % (Auto) 1.3 (0-2) % Neut # (Auto) 1800 (0829-8972) /uL Lymph # (Auto) 1900 (0754-0042) /uL Calhoun # (Auto) 600 (0-900) /uL Eos # (Auto) 200 (0-450) /uL Baso # (Auto) 100 (0-100) /uL Sodium 139 (137-145) mmol/L Potassium 4.0 (3.4-5.1) mmol/L Chloride 101 (98-107) mmol/L Carbon Dioxide 31 (22-32) mmol/L BUN 16 (7-17) mg/dL Creatinine 0.80 (0.52-1.04) mg/dL Estimated GFR > 60.0 (>60) mL/min BUN/Creatinine Ratio 20.0 (6-22) Glucose 88 (70-100) mg/dL Calcium 9.6 (8.4-10.2) mg/dL Total Bilirubin 0.6 (0.2-1.3) mg/dL AST 65 H (14-36) IU/L ALT 94 H (9-52) IU/L Alkaline Phosphatase 51 (38-126) U/L Total Protein 7.4 (6.3-8.2) g/dL Albumin 4.3 (3.5-5.0) g/dL Globulin 3.1 (1.7-4.1) g/dL Albumin/Globulin Ratio 1.4 (1.0-2.8) Lipase 65 (23-300) U/L Urine RBC (0-5/HPF) Urine WBC (0-5/HPF) Ur Squamous Epith Cells (0-5/HPF) Amorphous Sediment Urine Bacteria (None) Urine Mucus (Negative) Ur Culture Indicated? Blood Type O Positive Antibody Screen Negative 11/30/18 Range/Units 14:05 WBC (4.5-11.0) X10^3/uL RBC (4.0-5.2) X10^6/uL Hgb (12.0-16.0) g/dL Hct (36-46) % MCV (80-100) fL MCH (26-34) PG MCHC (30-36) % RDW (11.6-14.8) % Plt Count (150-400) X10^3/uL Neut % (Auto) (50-75) % Lymph % (Auto) (25-40) % Calhoun % (Auto) (3-14) % Eos % (Auto) (2-4) % Baso % (Auto) (0-2) % Neut # (Auto) (9895-1072) /uL Lymph # (Auto) (6303-2097) /uL Calhoun # (Auto) (0-900) /uL Eos # (Auto) (0-450) /uL Baso # (Auto) (0-100) /uL Sodium (137-145) mmol/L Potassium (3.4-5.1) mmol/L Chloride (98-107) mmol/L Carbon Dioxide (22-32) mmol/L BUN (7-17) mg/dL Creatinine (0.52-1.04) mg/dL Estimated GFR (>60) mL/min BUN/Creatinine Ratio (6-22) Glucose (70-100) mg/dL Calcium (8.4-10.2) mg/dL Total Bilirubin (0.2-1.3) mg/dL AST (14-36) IU/L ALT (9-52) IU/L Alkaline Phosphatase (38-126) U/L Total Protein (6.3-8.2) g/dL Albumin (3.5-5.0) g/dL Globulin (1.7-4.1) g/dL Albumin/Globulin Ratio (1.0-2.8) Lipase (23-300) U/L Urine RBC 0-1/hpf (0-5/HPF) Urine WBC 5-10/hpf H (0-5/HPF) Ur Squamous Epith Cells 5-10 /hpf H (0-5/HPF) Amorphous Sediment 1+ Urine Bacteria Moderate (10-30) H (None) Urine Mucus 1+ H (Negative) Ur Culture Indicated? Specimen cultured Blood Type Antibody Screen Point of care testing: Point of Care Testing Test Results Negative Urine Dip Bedside Urine Glucose Negative Bedside Urine Bilirubin - Negative Bedside Urine Ketone - Negative Urine Specific Marana 1.025 Bedside Urine Occult Blood +/- Bedside Urine pH 6.0 Bedside Urine Protein - Negative Bedside Urine Urobilinogen - Negative Bedside Urine Nitrite - Negative Bedside Urine Leukocytes + 70 Esterase Discharge Plan Departure Patient Disposition: Home Clinical Impression: RB (rectal bleeding) Abdominal pain Qualifiers: Abdominal location: generalized Qualified Code(s): R10.84 - Generalized abdominal pain UTI (urinary tract infection) Qualifiers: Urinary tract infection type: acute cystitis Hematuria presence: with hematuria Qualified Code(s): N30.01 - Acute cystitis with hematuria Discharge Date/Time: 11/30/18 16:36 Interventions: ED Discharge Assessment Last Done: 11/30/18 16:36 Instructions: DI for Abdominal Pain-Adult, Gastrointestinal Bleeding Activity Restrictions/Additional Instructions: Thank you for entrusting me with your care today. As discussed, it is important that you follow-up with her primary care provider to get a colonoscopy to determine the cause of the rectal bleeding. I prescribed omeprazole take this daily until instructed otherwise by her primary care provider. I have also included Reglan for nausea. We have discussed the results of the ultrasound and it appears that your gallbladder is normal at this time, other than a polyp noted on the imaging. Please return if you experience chest pain, shortness of breath, perfused GI bleeding, vomiting blood, increase in significant abdominal pain. I have also prescribed you antibiotics for a UTI. Prescriptions: New omeprazole 20 mg capsule,delayed release(DR/EC) 20 mg PO DAILY Qty: 30 RF: 0 metoclopramide HCl 10 mg tablet 10 mg PO Q6H PRN (Reason: nausea and vomiting) Qty: 7 RF: 0 amoxicillin-pot clavulanate [Augmentin] 500-125 mg tablet 1 tab PO BID Qty: 7 RF: 0 No Action piroxicam 20 MG capsule 20 mg PO DAILY Qty: 0 RF: 0 tramadol 50 mg tablet 50 mg PO TID PRN (Reason: pain) Qty: 30 RF: 0 zolpidem [Ambien] 10 mg Tablet 10 mg PO BEDTIME PRN (Reason: Insomnia) RF: 0 Xeljanz XR 11 mg Tablet Extended Release 24 Hr 11 mg PO QPM RF: 0 folic acid 1 mg tablet 1 - 3 mg PO QPM RF: 0 metoprolol succinate 25 mg tablet extended release 24 hr 50 mg PO QPM RF: 0 hydroxyzine pamoate 25 mg capsule 25 - 50 mg PO PRN PRN (Reason: panic attacks) RF: 0 escitalopram oxalate 20 mg tablet 20 mg PO QPM RF: 0 levocetirizine 5 mg tablet 5 mg PO QPM RF: 0 Rasuvo (PF) 25 mg/0.5 mL auto-injector 1 dose subcut FR RF: 0 piroxicam 20 mg capsule RF: 0 Cimzia Starter Kit 400 mg/2 mL (200 mg/mL x 2) syringe kit RF: 0 oxycodone-acetaminophen 10-325 mg tablet 1 tab PO Q6H PRN (Reason: Pain, Severe) RF: 0 Nortrel 1/35 (28) 1-35 mg-mcg tablet 1 tab PO QPM RF: 0 ondansetron 8 mg tablet,disintegrating 8 mg PO TID PRN (Reason: Nausea) RF: 0 gabapentin 100 mg capsule 100 - 300 mg PO TID PRN (Reason: pain) RF: 0 Referrals: Rebecca Khan MD [Primary Care Provider] -
[2018-11-30 13:15] VITALS: BP 140/87; PULSE 58; RESP 16; O2SAT 100
[2018-11-30] MEDS: KETOROLAC 60 MG/2 ML VIAL 30 MG IV (13:26)
[2018-11-30] MEDS: SODIUM CHLORIDE 0.9% 1,000 ML 1000 ML IV (13:26)
[2018-11-30] MEDS: ONDANSETRON 4 MG/2 ML INJ IV (13:26)
[2018-11-30] MEDS: PANTOPRAZOLE 40 MG VIAL IV (13:27)
--- NOTE | 2018-11-30 13:46 | PC.NURSE ---
hx of lower gi bleed. last night another episode of lower gi bleed, now with right lower abdominal pain , radiating to the back, denies fever or vomiting. denies trauma or injuries. reports with nausea and dizziness at this time.
[2018-11-30 13:47] LABS: Add Manual Diff / Slide Review NO; Basophils Absolute Auto 100 /uL (0-100); Basophils Percent Auto 1.3 % (0-2); Eosinophils Absolute Auto 200 /uL (0-450); Eosinophils Percent Auto 4.8 % (2-4); Hemoglobin 14.4 g/dL (12.0-16.0); Lymphocytes Absolute Auto 1900 /uL (1100-4500); Lymphocytes Percent Auto 41.6 % (25-40); Mean Corpuscular HGB Conc 34.2 % (30-36); Mean Corpuscular Volume 87.6 fL (80-100); Monocytes Absolute Auto 600 /uL (0-900); Monocytes Percent Auto 13.5 % (3-14); Neutrophils Absolute Auto 1800 /uL (1500-7000); Neutrophils Percent Auto 38.8 % (50-75); Platelet Count 244 X10^3/uL (150-400); Red Blood Cell Count 4.79 X10^6/uL (4.0-5.2); Red Cell Distribution Width 12.9 % (11.6-14.8); White Blood Cell Count 4.7 X10^3/uL (4.5-11.0)
[2018-11-30 13:59] LABS: Alanine Aminotransferase 94 IU/L (9-52); Albumin 4.3 g/dL (3.5-5.0); Albumin Globulin Ratio 1.4 (1.0-2.8); Alkaline Phosphatase 51 U/L (38-126); Aspartate Aminotransferase 65 IU/L (14-36); Bilirubin Total 0.6 mg/dL (0.2-1.3); Blood Urea Nitrogen 16 mg/dL (7-17); Calcium 9.6 mg/dL (8.4-10.2); Carbon Dioxide 31 mmol/L (22-32); Chloride 101 mmol/L (98-107); Estimated Glomerular Filt Rate > 60.0 mL/min (>60); Globulin 3.1 g/dL (1.7-4.1); Glucose 88 mg/dL (70-100); HEMOLYSIS < 15 (0-50); Lipase 65 U/L (23-300); Sodium 139 mmol/L (137-145); Total Protein 7.4 g/dL (6.3-8.2)
[2018-11-30 14:15] LABS: Amorphous Sediment Urine 1+; Bacteria Urine Moderate (10-30); Culture Indicated Urine Specimen Cultured; Mucus Urine 1+ (Negative); RBC Urine 0-1/HPF (0-5/HPF); Squamous Epithelial Cell Urine 5-10 /HPF (0-5/HPF); WBC Urine 5-10/HPF (0-5/HPF)
[2018-11-30 14:22] VITALS: BP 105/66; PULSE 55; RESP 16; O2SAT 100
--- NOTE | 2018-11-30 14:47 | DI.US.S_ITS ---
PROCEDURE: US ABDOMEN LIMITED INDICATIONS: ELEVATED LFTs, RUQ PAIN, N/V TECHNIQUE: Real-time focused scanning was performed of the abdomen, with image documentation. COMPARISON: [facility], MR, MR ABDOMEN WO/W CON, 06/14/2018, 16:47. [facility], CT, CT ABDOMEN PELVIS W CON, 09/06/2018, 11:20. FINDINGS: Liver demonstrates normal size and echotexture. There is a 4 mm echogenic focus in the anterior wall of gallbladder without ring down artifact or shadowing. No gallstones. No gallbladder wall thickening, pericholecystic fluid or sonographic Quinteros's sign. Visualized pancreas is normal. No intrahepatic or extra hepatic biliary dilation. Common bile duct measures 4.2 mm. IMPRESSION: 1. Normal ultrasound appearance of liver and pancreas. 2. A 4 mm echogenic focus of gallbladder, which may be a small polyp. No gallstones or ultrasound findings to suggest acute cholecystitis. Dictated by: Priscilla Cotton M.D. on 11/30/2018 at 15:54 Approved by: Priscilla Cotton M.D. on 11/30/2018 at 15:58
[2018-11-30] MEDS: METOCLOPRAMIDE 10 MG/2 ML INJ IV (14:52)
[2018-11-30 15:01] VITALS: BP 134/82; PULSE 64; RESP 20; O2SAT 100
== END 2018-11-30 16:36 | disposition home or self-care (01) ==
PROVIDERS: Emergency Provider Nurse Practitioner; PCP Family Medicine
DX: K62.5 Hemorrhage of anus and rectum (principal); R10.84 Generalized abdominal pain; N30.01 Acute cystitis with hematuria
CPT/HCPCS: 36591; 76705; 80053; 81003; 81015; 81025; 83690; 85025; 86850; 86900; 86901; 87077; 87086; 96361; 96374; 96375; 99283; 99284; C9113; J1885; J2405; J2765

== ENCOUNTER → 2019-01-17 13:21 | Outpatient (CLI) | payer OTHER, SELFPAY ==
--- NOTE | 2019-01-17 13:28 | DI.RAD.S_ITS ---
PROCEDURE: XR CHEST 2V INDICATIONS: cough TECHNIQUE: 2 views of the chest were acquired. COMPARISON: [facility], CR, XR CHEST 2V, 08/08/2018, 18:28. FINDINGS: Surgical changes and devices: None. Lungs and pleura: Lungs are clear. No pleural effusions or pneumothorax. Mediastinum: Mediastinal contours are normal. Heart size is normal. Bones and chest wall: No suspicious bony abnormalities. Soft tissues appear unremarkable. IMPRESSION: No acute cardiopulmonary pathology. Dictated by: Stephen Tan M.D. on 01/17/2019 at 14:43 Approved by: Stephen Tan M.D. on 01/17/2019 at 14:43
== END ==
PROVIDERS: PCP Family Medicine; Visit Provider Physician Assistant
DX: R05 Cough (principal)
CPT/HCPCS: 71046

== ENCOUNTER → 2019-04-25 11:57 | Outpatient (CLI) | payer OTHER, SELFPAY ==
[2019-04-25 13:02] LABS: HCG Quantitative /Beta subunit < 2.39 mIU/mL
== END ==
PROVIDERS: PCP Physician Assistant; Visit Provider Obstetrics & Gynecology
DX: N91.2 Amenorrhea, unspecified (principal)
CPT/HCPCS: 36415; 84702

== ENCOUNTER → 2019-05-23 11:53 | Outpatient (CLI) | payer OTHER, SELFPAY | PROVIDERS: PCP Physician Assistant; Visit Provider Obstetrics & Gynecology | DX: N91.2 Amenorrhea, unspecified (principal) | CPT/HCPCS: 36415; 84144 ==

== ENCOUNTER 2020-05-16 21:37 | Emergency (ER) | payer OTHER, SELFPAY ==
[2020-05-16 21:50] VITALS: PULSE 98; RESP 18; TEMP 36.2; O2SAT 100; BMI 37.5
--- NOTE | 2020-05-16 23:04 | ED.BACK ---
HPI - Back Pain/Injury General Chief Complaint: Back Pain/Injury Stated Complaint: FLAIR UP ON SPINE UNABLE TO WALK WELL Time Seen by Provider: 05/16/20 23:04 Source: patient Limitations: no limitations History of Present Illness HPI Narrative: 24-year-old woman with a history of ankylosing spondylitis on able biologics for control of this. Complains of increasing achiness as well as spine pain and right flank pain. Presents concerned that she is having a flare for ankylosing spondylitis. She describes the no fevers or chills, no cough, no chest pain, no dyspnea no dysuria, no abdominal pain. Continues to complain of significant spine pain radiating to both flanks right greater than left. Related Data Home Medications Medication Instructions Recorded Confirmed zolpidem [Ambien] 10 mg PO BEDTIME PRN 01/24/18 03/07/19 escitalopram oxalate 20 mg PO QPM 06/05/18 03/07/19 folic acid 1 - 3 mg PO QPM 06/05/18 03/07/19 levocetirizine 5 mg PO QPM 06/05/18 03/07/19 oxycodone-acetaminophen 1 tab PO Q6H PRN 09/06/18 03/07/19 certolizumab pegol [Cimzia Starter 11/30/18 03/07/19 Kit] piroxicam 11/30/18 03/07/19 multivitamin 1 cap PO DAILY 01/15/19 03/07/19 Previous Rx's Medication Instructions Recorded letrozole 2.5 mg tablet 2.5 mg PO DAILY #5 tab 04/25/19 medroxyprogesterone 10 mg tablet 10 mg PO DAILY #10 tab 04/25/19 amoxicillin-pot clavulanate 1 tab PO BID #20 tab 05/17/20 [Augmentin XR] fluconazole [Diflucan] 150 mg PO DAILY #2 tab 05/17/20 oxycodone-acetaminophen 1 tab PO Q6H PRN #10 tab 05/17/20 Allergies Allergy/AdvReac Type Severity Reaction Status Date / Time tioconazole Allergy Intermediate Rash Verified 03/07/19 16:19 [From Monistat 1 (tioconazole)] Review of Systems Review of Systems Narrative: Remainder of review of systems including constitutional, ENT, cardiovascular, respiratory, GI, , musculoskeletal, skin, neurologic and psychiatric systems reviewed and are unremarkable except as noted in HPI. Patient History Medical History Ankylosing spondylitis (Chronic ~2011) Anxiety (Chronic ~2011) Asthma (Chronic ~2011) Depression (Chronic ~2011) Endometriosis (Chronic ~2011) Fibromyalgia (Chronic ~2011) Ovarian cyst (Chronic ~2008) Rheumatoid arthritis (Chronic ~2011) Seasonal allergies (Chronic) SVT (supraventricular tachycardia) (Chronic ~2017) Surgical History Anesthesia (Resolved) History of foot surgery (Resolved ~2011) History of laparoscopy (Resolved) History of placement of ear tubes (Resolved) Family History Father Hypertension Hyperlipidemia Mother Mental health problem Grandfather Lymphoma Grandmother Diabetes mellitus Hypertension Grandfather Hypertension Grandmother Diabetes mellitus Hypertension Social History marital status: unmarried,living together household members: significant other occupational status: unemployed Smoking Status: Never smoker alcohol intake: current substance use type: does not use Smoking Status: Never smoker alcohol intake frequency: a few times a week Alcohol type: wine Substance Use Type: marijuana Exam Narrative Exam Narrative: General: Healthy appearing, in no acute distress. Able to give a complete and coherent history. Well-nourished well-developed HEENT: Moist mucous membranes, normal sclera with reactive pupils, Respiratory: Lungs are clear to auscultation, no wheezing no rales no rhonchi. Full and symmetrical air movement Cardiac: Regular rate and rhythm no murmurs no bruits Abdomen: Soft nontender good bowel tones, right flank pain Skin: Warm and dry, no rashes Neurologic: Grossly neurologically intact with no obvious asymmetries or abnormalities Extremities: No trauma, well perfused Psych: Cooperative, appropriate insight and affect Initial Vital Signs Initial Vital Signs: Vital Signs Temperature 97.2 F L 05/16/20 21:50 Pulse Rate 98 H 05/16/20 21:50 Respiratory Rate 18 05/16/20 21:50 Pulse Oximetry 100 05/16/20 21:50 Course Orders Ordered: ED Orders 05/17/20 00:45 Complete Blood Count AUTO DIFF Stat Comprehensive Metabolic Panel Stat Lactate (Lactic Acid) Stat Procalcitonin Stat 05/17/20 03:30 Urinalysis and Microscopic Stat Discontinued Medications Hydromorphone HCl (Dilaudid) 1 mg IV NOW ONE Stop: 05/17/20 00:33 Last Admin: 05/17/20 00:48 Dose: 1 mg Documented by: NADIRA Hydromorphone HCl (Dilaudid) 1 mg IV NOW ONE Stop: 05/17/20 01:21 Last Admin: 05/17/20 01:25 Dose: 1 mg Documented by: KO Sodium Chloride (Normal Saline 0.9%) 1,000 mls @ 1,000 mls/hr IV BOLUS ONE Stop: 05/17/20 01:31 Last Infusion: 05/17/20 01:57 Dose: 0 mls/hr Documented by: Admin: 05/17/20 00:48 Dose: 1,000 mls/hr Documented by: NADIRA Ceftriaxone Sodium/Dextrose (Rocephin) 2 gm in 50 mls @ 100 mls/hr IV NOW ONE Stop: 05/17/20 04:05 Last Admin: 05/17/20 03:40 Dose: 100 mls/hr Documented by: LLOYD Ketorolac Tromethamine (Toradol) 30 mg IM NOW ONE Stop: 05/16/20 23:06 Last Admin: 05/16/20 23:19 Dose: 30 mg Documented by: VONDA Oxycodone/Acetaminophen (Percocet 5/325) 2 tab PO NOW ONE Stop: 05/16/20 23:06 Last Admin: 05/16/20 23:18 Dose: 2 tab Documented by: VONDA Oxycodone/Acetaminophen (Percocet 5/325) 2 tab PO NOW ONE Stop: 05/17/20 03:37 Last Admin: 05/17/20 03:40 Dose: 2 tab Documented by: LLOYD Oxycodone/Acetaminophen (Endocet 5/325 Prepack) 1 bottle MISC SEEINSTR ONE Stop: 05/17/20 04:32 Vital Signs Vital signs: Vital Signs - 8 hr 05/16/20 21:50 05/17/20 00:23 05/17/20 00:30 Temperature 97.2 F L Pulse Rate 98 H 87 85 Respiratory Rate 18 Blood Pressure 158/103 H 159/101 H Pulse Oximetry 100 99 99 05/17/20 01:00 05/17/20 01:30 05/17/20 02:00 Temperature Pulse Rate 94 H 84 83 Respiratory Rate Blood Pressure 141/86 H 136/95 H 133/82 Pulse Oximetry 97 97 96 05/17/20 02:30 05/17/20 03:00 05/17/20 03:30 Temperature Pulse Rate 92 H 82 81 Respiratory Rate Blood Pressure 137/66 133/76 134/87 Pulse Oximetry 97 95 97 MDM - Back Pain/Injury Medical Records Attestation: I reviewed the patient's medical records. Lab Data Attestation: I reviewed the patient's lab results. Result diagrams: 05/17/20 00:45 05/17/20 00:45 Labs: Lab Results 05/17/20 05/17/20 05/17/20 Range/Units 00:45 00:45 00:45 WBC 6.1 (4.5-11.0) X10^3/uL RBC 4.90 (4.0-5.2) X10^6/uL Hgb 15.0 (12.0-16.0) g/dL Hct 43.8 (36-46) % MCV 89.3 (80-100) fL MCH 30.6 (26-34) PG MCHC 34.3 (30-36) % RDW 12.8 (11.6-14.8) % Plt Count 271 (150-400) X10^3/uL Neut % (Auto) 47.1 L (50-75) % Lymph % (Auto) 38.7 (25-40) % Blair % (Auto) 12.7 (3-14) % Eos % (Auto) 0.5 L (2-4) % Baso % (Auto) 1.0 (0-2) % Neut # (Auto) 2900 (8804-1303) /uL Lymph # (Auto) 2300 (6009-3607) /uL Blair # (Auto) 800 (0-900) /uL Eos # (Auto) 0 (0-450) /uL Baso # (Auto) 100 (0-100) /uL Sodium 137 (137-145) mmol/L Potassium 3.8 (3.4-5.1) mmol/L Chloride 102 (98-107) mmol/L Carbon Dioxide 29 (22-32) mmol/L BUN 16 (7-17) mg/dL Creatinine 0.79 (0.52-1.04) mg/dL Estimated GFR > 60.0 (>60) mL/min BUN/Creatinine Ratio 20.3 (6-22) Glucose 124 H (70-100) mg/dL Lactate (0.7-2.1) mmol/L Calcium 9.6 (8.4-10.2) mg/dL Total Bilirubin 0.6 (0.2-1.3) mg/dL AST 31 (14-36) IU/L ALT 32 (<35) IU/L Alkaline Phosphatase 43 (38-126) U/L Total Protein 7.9 (6.3-8.2) g/dL Albumin 4.4 (3.5-5.0) g/dL Globulin 3.5 (1.7-4.1) g/dL Albumin/Globulin Ratio 1.3 (1.0-2.8) Procalcitonin < 0.05 (<0.5) ng/mL Urine Color Urine Appearance Urine pH (4.5-8.0) Ur Specific [place] (1.000-1.035) Urine Protein (Negative) Urine Glucose (UA) (Negative) g/dL Urine Ketones (NEGATIVE) Urine Occult Blood (Negative) Urine Nitrate (Negative) Urine Bilirubin (NEGATIVE) Urine Urobilinogen (0.2) E.U./dL Ur Leukocyte Esterase (NEGATIVE) Urine RBC (0-5/HPF) Urine WBC (0-5/HPF) Ur Squamous Epith Cells (0-5/HPF) Amorphous Sediment Urine Bacteria (None) Urine Mucus (Negative) Ur Culture Indicated? 05/17/20 05/17/20 05/17/20 Range/Units 00:45 03:05 03:30 WBC (4.5-11.0) X10^3/uL RBC (4.0-5.2) X10^6/uL Hgb (12.0-16.0) g/dL Hct (36-46) % MCV (80-100) fL MCH (26-34) PG MCHC (30-36) % RDW (11.6-14.8) % Plt Count (150-400) X10^3/uL Neut % (Auto) (50-75) % Lymph % (Auto) (25-40) % Blair % (Auto) (3-14) % Eos % (Auto) (2-4) % Baso % (Auto) (0-2) % Neut # (Auto) (8964-7028) /uL Lymph # (Auto) (6292-6790) /uL Blair # (Auto) (0-900) /uL Eos # (Auto) (0-450) /uL Baso # (Auto) (0-100) /uL Sodium (137-145) mmol/L Potassium (3.4-5.1) mmol/L Chloride (98-107) mmol/L Carbon Dioxide (22-32) mmol/L BUN (7-17) mg/dL Creatinine (0.52-1.04) mg/dL Estimated GFR (>60) mL/min BUN/Creatinine Ratio (6-22) Glucose (70-100) mg/dL Lactate 2.3 H 1.9 (0.7-2.1) mmol/L Calcium (8.4-10.2) mg/dL Total Bilirubin (0.2-1.3) mg/dL AST (14-36) IU/L ALT (<35) IU/L Alkaline Phosphatase (38-126) U/L Total Protein (6.3-8.2) g/dL Albumin (3.5-5.0) g/dL Globulin (1.7-4.1) g/dL Albumin/Globulin Ratio (1.0-2.8) Procalcitonin (<0.5) ng/mL Urine Color Dark yellow Urine Appearance Turbid Urine pH 5.0 (4.5-8.0) Ur Specific [place] >=1.030 H (1.000-1.035) Urine Protein 1+ H (Negative) Urine Glucose (UA) Negative (Negative) g/dL Urine Ketones Trace H (NEGATIVE) Urine Occult Blood 1+ H (Negative) Urine Nitrate Negative (Negative) Urine Bilirubin Negative (NEGATIVE) Urine Urobilinogen 0.2 (0.2) E.U./dL Ur Leukocyte Esterase Negative (NEGATIVE) Urine RBC None seen (0-5/HPF) Urine WBC None seen (0-5/HPF) Ur Squamous Epith Cells 1-5 /hpf (0-5/HPF) Amorphous Sediment 3+ Urine Bacteria Moderate (10-30) H (None) Urine Mucus 1+ H (Negative) Ur Culture Indicated? Cult not indicated MDM Narrative Medical decision making narrative: 24-year-old woman concerned with a flare for her ankylosing spondylitis that in fact a believe it is probably a right-sided pyelonephritis. She has been given IV ceftriaxone and multiple different medications to control her right flank pain. She will be discharged home with 10 days of Augmentin and a brief course of Percocet to help with the flank pain. At this time there is no evidence of renal stone, sepsis, intra-abdominal process or pneumonia. She is safe for home discharge Discharge Plan Departure Patient Disposition: Home Clinical Impression: Pyelonephritis Instructions: DI for Kidney Infection Activity Restrictions/Additional Instructions: Thank you for coming in today and for being so patient with us. I suspect that you are developing a bladder and kidney infection. The pain that you are experiencing in the right flank and low back area is likely related to your kidney. In the emergency room your given IV fluid as well as a dose of IV antibiotics. There is no evidence of overwhelming infection or significant kidney injury at this point. I have given you a prescription for Augmentin to start later today. I have also given you a prescription for Diflucan to treat and prevent vaginal yeast infection related to antibiotic use. For pain control you can use 1-2 Percocet. [facility] 3 [facility] for you to burr picker later today. Do expect the pain in the low-grade fevers to persist for the 1st 48 hours of treatment. If you feel that you are getting worse having new symptoms or developing different findings please feel free to return to the emergency department for further evaluation Prescriptions: New amoxicillin-pot clavulanate [Augmentin XR] 1,000-62.5 mg tablet extended release 12 hr 1 tab PO BID Qty: 20 RF: 0 oxycodone-acetaminophen 5-325 mg tablet 1 tab PO Q6H PRN (Reason: pain) Qty: 10 RF: 0 fluconazole [Diflucan] 150 mg tablet 150 mg PO DAILY Qty: 2 RF: 0 No Action medroxyprogesterone 10 mg tablet 10 mg PO DAILY Qty: 10 RF: 0 letrozole 2.5 mg tablet 2.5 mg PO DAILY Qty: 5 RF: 0 multivitamin capsule 1 cap PO DAILY RF: 0 zolpidem [Ambien] 10 mg Tablet 10 mg PO BEDTIME PRN (Reason: Insomnia) RF: 0 folic acid 1 mg tablet 1 - 3 mg PO QPM RF: 0 escitalopram oxalate 20 mg tablet 20 mg PO QPM RF: 0 levocetirizine 5 mg tablet 5 mg PO QPM RF: 0 piroxicam 20 mg capsule RF: 0 Cimzia Starter Kit 400 mg/2 mL (200 mg/mL x 2) syringe kit RF: 0 oxycodone-acetaminophen 10-325 mg tablet 1 tab PO Q6H PRN (Reason: Pain, Severe) RF: 0 Referrals: Grace Stone PA-C [Primary Care Provider] -
[2020-05-16] MEDS: OXYCODONE/ACETAMINOPHEN 5/325 TABLET 2 TAB PO (23:18)
[2020-05-16] MEDS: KETOROLAC 60 MG/2 ML VIAL 30 MG IM (23:19)
[2020-05-17] VITALS (10 sets, daily range): BP systolic 133–161; BP diastolic 66–103; PULSE 81–94; O2SAT 95–99
[2020-05-17 00:20] LABS: RBC Urine None Seen (0-5/HPF); WBC Urine None Seen (0-5/HPF)
[2020-05-17] MEDS: SODIUM CHLORIDE 0.9% 1,000 ML 1000 ML IV (00:48)
[2020-05-17] MEDS: HYDROMORPHONE 1 MG INJ IV ×2 (00:48→01:25)
[2020-05-17 00:57] LABS: Add Manual Diff / Slide Review NO; Basophils Absolute Auto 100 /uL (0-100); Eosinophils Absolute Auto 0 /uL (0-450); Eosinophils Percent Auto 0.5 % (2-4); Hematocrit 43.8 % (36-46); Lymphocytes Absolute Auto 2300 /uL (1100-4500); Lymphocytes Percent Auto 38.7 % (25-40); Mean Corpuscular HGB Conc 34.3 % (30-36); Mean Corpuscular Hemoglobin 30.6 PG (26-34); Mean Corpuscular Volume 89.3 fL (80-100); Monocytes Absolute Auto 800 /uL (0-900); Monocytes Percent Auto 12.7 % (3-14); Neutrophils Absolute Auto 2900 /uL (1500-7000); Neutrophils Percent Auto 47.1 % (50-75); Platelet Count 271 X10^3/uL (150-400); Red Cell Distribution Width 12.8 % (11.6-14.8); White Blood Cell Count 6.1 X10^3/uL (4.5-11.0)
[2020-05-17 01:03] LABS: Lactate (Lactic Acid) 2.3 mmol/L (0.7-2.1)
[2020-05-17 01:05] LABS: Alanine Aminotransferase 32 IU/L (<35); Albumin 4.4 g/dL (3.5-5.0); Albumin Globulin Ratio 1.3 (1.0-2.8); Alkaline Phosphatase 43 U/L (38-126); Aspartate Aminotransferase 31 IU/L (14-36); BUN Creatinine Ratio 20.3 (6-22); Bilirubin Total 0.6 mg/dL (0.2-1.3); Blood Urea Nitrogen 16 mg/dL (7-17); Calcium 9.6 mg/dL (8.4-10.2); Carbon Dioxide 29 mmol/L (22-32); Chloride 102 mmol/L (98-107); Estimated Glomerular Filt Rate > 60.0 mL/min (>60); Globulin 3.5 g/dL (1.7-4.1); Glucose 124 mg/dL (70-100); HEMOLYSIS < 15 (0-50); Potassium 3.8 mmol/L (3.4-5.1); Sodium 137 mmol/L (137-145); Total Protein 7.9 g/dL (6.3-8.2)
[2020-05-17 01:20] LABS: Procalcitonin < 0.05 ng/mL (<0.5)
[2020-05-17 02:50] LABS: Reflexed Lactate in 2 Hours Y
[2020-05-17 03:33] LABS: Lactate 2HR (Lactic Acid Rflx) 1.9 mmol/L (0.7-2.1)
[2020-05-17 03:39] LABS: Bilirubin Urine UA NEGATIVE (NEGATIVE); Glucose Urine UA NEGATIVE (Negative); Ketones Urine UA TRACE (NEGATIVE); Leukocyte Esterase Urine UA NEGATIVE (NEGATIVE); Nitrite Urine UA NEGATIVE (Negative); Occult Blood Urine UA 1+ (Negative); Protein Urine UA 1+ (Negative); Specific Gravity Urine UA >=1.030 (1.000-1.035); Urobilinogen Urine UA 0.2 E.U./dL (0.2)
[2020-05-17] MEDS: CEFTRIAXONE 2 GM/50 ML FROZ.PIGGY IV (03:40)
[2020-05-17] MEDS: OXYCODONE/ACETAMINOPHEN 5/325 TABLET 2 TAB PO (03:40)
[2020-05-17 03:43] LABS: Color Urine UA Dark Yellow
[2020-05-17 03:44] LABS: Appearance Urine UA Turbid
[2020-05-17 03:45] LABS: Amorphous Sediment Urine 3+; Bacteria Urine Moderate (10-30); Squamous Epithelial Cell Urine 1-5 /HPF (0-5/HPF)
[2020-05-17 03:46] LABS: Culture Indicated Urine Cult Not Indicated; Mucus Urine 1+ (Negative)
[2020-05-17] MEDS: OXYCODONE/APAP 5/325 PREPACK 1 BOTTLE MISC (04:41)
== END 2020-05-17 04:58 | disposition home or self-care (01) ==
PROVIDERS: Emergency Provider Emergency Medicine; PCP Physician Assistant
DX: N12 Tubulo-interstitial nephritis, not specified as acute or chronic (principal); R10.9 Unspecified abdominal pain; M54.9 Dorsalgia, unspecified
CPT/HCPCS: 36415; 80053; 81001; 83605; 84145; 85025; 96361; 96365; 96372; 96375; 96376; 99284; J0696; J1170; J1885

== ENCOUNTER 2023-06-13 12:00 | Emergency (ER) | payer MEDICARE, OTHER, SELFPAY ==
[2023-06-13] VITALS (8 sets, daily range): BP systolic 139–162; BP diastolic 93–99; PULSE 69–81; RESP 15–17; TEMP 37.3; O2SAT 97–99
--- NOTE | 2023-06-13 12:11 | DI.RAD.S_ITS ---
PROCEDURE: XR CHEST 1V INDICATIONS: suspected sepsis TECHNIQUE: One view of the chest was acquired. COMPARISON: [facility], CR, XR CHEST 2V, 01/17/2019, 13:28. FINDINGS: Surgical changes and devices: None. Lungs and pleura: Lungs are clear. No pleural effusions or pneumothorax. Mediastinum: Mediastinal contours appear normal. Heart size is normal. Bones and chest wall: No suspicious bony lesions. Overlying soft tissues appear unremarkable. IMPRESSION: No acute process. Dictated by: Daniel Fuentes M.D. on 06/13/2023 at 12:39 Approved by: Daniel Fuentes M.D. on 06/13/2023 at 12:39
[2023-06-13 13:06] LABS: Add Manual Diff / Slide Review NO; Basophils Absolute Auto 0 /uL (0-100); Basophils Percent Auto 0.9 % (0-2); Eosinophils Absolute Auto 100 /uL (0-450); Eosinophils Percent Auto 3.4 % (2-4); Lymphocytes Absolute Auto 1400 /uL (1100-4500); Mean Corpuscular HGB Conc 34.2 % (30-36); Mean Corpuscular Hemoglobin 31.8 PG (26-34); Mean Corpuscular Volume 93.2 fL (80-100); Monocytes Absolute Auto 300 /uL (0-900); Monocytes Percent Auto 7.7 % (3-14); Neutrophils Absolute Auto 2400 /uL (1500-7000); Platelet Count 282 X10^3/uL (150-400); Red Blood Cell Count 4.73 X10^6/uL (4.0-5.2); Red Cell Distribution Width 12.7 % (11.6-14.8); White Blood Cell Count 4.4 X10^3/uL (4.5-11.0)
[2023-06-13 13:11] LABS: Prothrombin Time 11.2 SECONDS (9.4-12.5)
[2023-06-13] MEDS: SODIUM CHLORIDE 0.9% 1,000 ML 1000 ML IV (13:11)
[2023-06-13 13:13] LABS: Lactate (Lactic Acid) 1.7 mmol/L (0.7-2.1)
[2023-06-13 13:14] LABS: Alanine Aminotransferase 94 IU/L (<35); Albumin 4.7 g/dL (3.5-5.0); Albumin Globulin Ratio 1.3 (1.0-2.8); Alkaline Phosphatase 58 U/L (38-126); Aspartate Aminotransferase 77 IU/L (14-36); BUN Creatinine Ratio 16.7 (6-22); Bilirubin Total 0.7 mg/dL (0.2-1.3); Blood Urea Nitrogen 12 mg/dL (7-17); Calcium 9.8 mg/dL (8.4-10.2); Carbon Dioxide 25 mmol/L (22-32); Chloride 101 mmol/L (98-107); Estimated Glomerular Filt Rate > 60 mL/min (>60); Globulin 3.7 g/dL (1.7-4.1); Glucose 110 mg/dL (70-100); HEMOLYSIS < 15 (0-50); Lipase 86 U/L (23-300); PTT Partial Thromboplastin Tim 30 SECONDS (25.1-36.5); Potassium 3.9 mmol/L (3.4-5.1); Sodium 137 mmol/L (137-145); Total Protein 8.4 g/dL (6.3-8.2)
[2023-06-13] MEDS: ONDANSETRON 4 MG/2 ML INJ IV ×2 (13:24→14:21)
[2023-06-13 13:29] LABS: Procalcitonin 0.04 ng/mL (<0.5)
[2023-06-13 13:38] LABS: Bacteria Urine Many (>30); Culture Indicated Urine Cult Not Indicated; RBC Urine 0-1/HPF (0-5/HPF); Squamous Epithelial Cell Urine 5-10 /HPF (0-5/HPF); WBC Urine 0-1/HPF (0-5/HPF)
[2023-06-13 13:49] LABS: Adenovirus Not Detected (Not Detect); B. parapertussis Not Detected (Not Detecte); Bordetella pertussis Not Detected (Not Detect); Chlamydophila pneumoniae Not Detected (Not Detect); Coronavirus 229E Not Detected (Not Detect); Coronavirus HKU1 Not Detected (Not Detect); Coronavirus NL 63 Not Detected (Not Detect); Coronavirus OC43 Not Detected (Not Detect); Human Metapneumovirus Not Detected (Not Detect); Human Rhinovirus/Enterovirus Not Detected (Not Detect); Influenza A Not Detected (Not Detect); Influenza B Not Detected (Not Detect); Mycoplasma pneumoniae Not Detected (Not Detect); Parainfluenza Virus 1 Not Detected (Not Detect); Parainfluenza Virus 2 Not Detected (Not Detect); Parainfluenza Virus 3 Not Detected (Not Detect); Parainfluenza Virus 4 Not Detected (Not Detect); Respiratory Syncytial Virus Not Detected (Not Detect); SARS- CoV-2 Not Detected (Not Detecte)
--- NOTE | 2023-06-13 14:06 | ED.ABDPAIN ---
HPI - Abdominal Pain General Chief Complaint: Abdominal Pain Stated Complaint: fever and severe pain left side-cancer pt. Time Seen by Provider: 06/13/23 13:39 Source: patient Mode of arrival: Ambulatory Limitations: no limitations History of Present Illness HPI narrative: 27-year-old female with history multiple endocrine neoplasia type 1, ankylosing spondylitis on Cimzia, hypertension, diabetes, chronic pain, anxiety/depression. Patient presents with complaint of left flank pain radiating to the front for the past 3 days. Patient has had increasing pain. She normally takes Percocet 10/325 mg twice daily was not helpful last night she did not take her dose today. She is had fevers up to 101 and 102 F for the past days. Denies any cold cough or congestive symptoms. No chest pain, no shortness breath she is had nausea and vomiting. She is also noted some diarrhea like stools multiple times but denies black or bloody discoloration. Has had some frequency with urination symptoms consistent with prior bladder and kidney infection. Patient states no rash or skin changes. She is on metoprolol, clonidine, Percocet, Cimzia, Prozac, Seroquel, Zofran as needed, metformin and folic acid 3 mg daily. Patient states no prior surgeries. States allergic to Monistat. Denies tobacco, denies alcohol or recreational drugs. Patient is trying to reestablish with the endocrine locally since they have returned in February. She does have a primary care she follows with regularly who feels her medication. Related Data Home Medications Medication Instructions Recorded Confirmed zolpidem 10 mg tablet (Ambien) 10 mg PO BEDTIME PRN Insomnia 01/24/18 03/07/19 folic acid 1 mg tablet 3 mg PO QPM 06/05/18 06/13/23 levocetirizine 5 mg tablet 5 mg PO QPM 06/05/18 03/07/19 oxycodone-acetaminophen 10 mg-325 1 tab PO Q6H PRN Pain, Severe 09/06/18 06/13/23 mg tablet certolizumab pegol 400 mg/2 mL 11/30/18 03/07/19 (200 mg/mL x2) subcutaneous syringe kit piroxicam 20 mg capsule 11/30/18 03/07/19 multivitamin 1 cap PO DAILY 01/15/19 03/07/19 clonidine HCl 0.1 mg tablet 0.1 mg PO BEDTIME 06/13/23 06/13/23 diazepam 5 mg tablet 5 mg PO BEDTIME 06/13/23 06/13/23 fluoxetine 40 mg capsule 80 mg PO BEDTIME 06/13/23 06/13/23 metformin 500 mg tablet 500 mg PO BID 06/13/23 06/13/23 metoprolol succinate 50 mg 50 mg PO DAILY 06/13/23 06/13/23 tablet,extended release 24 hr quetiapine 150 mg tablet,extended 150 mg PO BEDTIME 06/13/23 06/13/23 release 24 hr (Seroquel XR) tizanidine 2 mg tablet 2 mg PO ONCE PM 06/13/23 06/13/23 Previous Rx's Medication Instructions Recorded letrozole 2.5 mg tablet 2.5 mg PO DAILY #5 tabs 04/25/19 medroxyprogesterone 10 mg tablet 10 mg PO DAILY #10 tabs 04/25/19 oxycodone 5 mg tablet 5 mg PO QID PRN pain #14 tabs 06/13/23 sulfamethoxazole 800 1 tab PO Q12H #20 tabs 06/13/23 mg-trimethoprim 160 mg tablet (Bactrim DS) Allergies Allergy/AdvReac Type Severity Reaction Status Date / Time tioconazole Allergy Intermediate Swelling Verified 06/13/23 12:22 [From Monistat 1 of vagina (tioconazole)] Review of Systems Review of Systems ROS Unobtainable: All systems reviewed & are unremarkable except as noted in HPI and below Patient History Medical History (Updated 06/13/23 @ 15:06 by Cindy Ferguson DO) Ankylosing spondylitis (~2011) Asthma (~2011) Seasonal allergies Depression (~2011) Anxiety (~2011) Fibromyalgia (~2011) Ovarian cyst (~2008) Endometriosis (~2011) SVT (supraventricular tachycardia) (~2017) Rheumatoid arthritis (~2011) Surgical History History of placement of ear tubes Anesthesia History of laparoscopy History of foot surgery (~2011) Family History Father Hypertension Hyperlipidemia Mother Mental health problem Grandfather Lymphoma Grandmother Diabetes mellitus Hypertension Grandfather Hypertension Grandmother Diabetes mellitus Hypertension Social History marital status: unmarried,living together household members: significant other occupational status: unemployed Smoking Status: Never smoker alcohol intake: current substance use type: does not use Smoking Status: Never smoker alcohol intake frequency: a few times a week Alcohol type: wine Substance Use Type: marijuana Exam Narrative Exam Narrative: GENERAL: Alert and oriented x three, female in [id number] distress. HEENT: Head normocephalic, atraumatic, EOMI, pupils reactive, face symmetric, moist mucous membranes NECK: Supple, full range of motion CARDIOVASCULAR: Regular rate and rhythm without murmurs, rubs or gallops. RESPIRATORY: Breath sounds equal bilaterally, no wheezes rales or rhonchi. ABDOMEN: Soft, positive for left lower quadrant tenderness greatest with slightly more in left upper quadrant tenderness. Normoactive bowel sounds all 4 quadrants. No guarding or rebound, rigidity, no mass : Positive for left CVA tenderness, no right CVA tenderness EXTREMITIES: Normal range of motion, no clubbing or edema. Neurovascularly intact NEUROLOGICAL: Cranial nerves II through XII grossly intact. Moving all extremities SKIN: Warm, dry, no petechiae, no rashes or lesions. Initial Vital Signs Initial Vital Signs: Vital Signs Temperature 99.1 F 06/13/23 12:09 Pulse Rate 81 06/13/23 12:09 Respiratory Rate 17 06/13/23 12:09 Blood Pressure 142/96 H 06/13/23 12:09 Pulse Oximetry 98 06/13/23 12:09 Oxygen Delivery Method Room Air 06/13/23 12:09 Course Orders Ordered: Discontinued Medications Hydromorphone HCl (Hydromorphone 1 Mg Inj) 1 mg IV NOW ONE Stop: 06/13/23 15:03 Last Admin: 06/13/23 15:09 Dose: 1 mg Documented By: MARITZA Sodium Chloride (Normal Saline 0.9%) 1,000 mls @ 1,000 mls/hr IV BOLUS ONE Stop: 06/13/23 13:10 Last Infusion: 06/13/23 14:55 Dose: Infused Documented By: Admin: 06/13/23 13:11 Dose: 1,000 mls/hr Documented By: ROBBIE Ketorolac Tromethamine (Ketorolac 30 Mg/Ml Vial) 15 mg IV NOW ONE Stop: 06/13/23 14:10 Last Admin: 06/13/23 14:21 Dose: 15 mg Documented By: MARITZA Ondansetron HCl (Ondansetron 4 Mg/2 Ml Inj) 4 mg IV NOW PRN PRN Reason: Nausea And Vomiting Last Admin: 06/13/23 13:24 Dose: 4 mg Documented By: ROBBIE Ondansetron HCl (Ondansetron 4 Mg Odt) 4 mg SL NOW PRN PRN Reason: Nausea And Vomiting Ondansetron HCl (Ondansetron 4 Mg/2 Ml Inj) 4 mg IV NOW ONE Stop: 06/13/23 14:10 Last Admin: 06/13/23 14:21 Dose: 4 mg Documented By: MARITZA Trimethoprim/Sulfamethoxazole (Trimeth/Sulfa 160/800 (Ds) Tablet) 1 tab PO NOW ONE Stop: 06/13/23 15:03 Last Admin: 06/13/23 15:10 Dose: 1 tab Documented By: MARITZA Vital Signs Vital signs: Vital Signs - 8 hr 06/13/23 12:09 06/13/23 13:25 06/13/23 13:29 Temperature 99.1 F Pulse Rate 81 77 Respiratory Rate 17 Blood Pressure 142/96 H 149/99 H Pulse Oximetry 98 98 Oxygen Delivery Method Room Air 06/13/23 13:29 Temperature Pulse Rate 74 Respiratory Rate Blood Pressure Pulse Oximetry 98 Oxygen Delivery Method Room Air MDM - Abdominal Pain Lab Data 06/13/23 12:30 06/13/23 12:30 Labs: Lab Results 06/13/23 06/13/23 Range/Units 12:20 12:30 WBC 4.4 L (4.5-11.0) X10^3/uL RBC 4.73 (4.0-5.2) X10^6/uL Hgb 15.0 (12.0-16.0) g/dL Hct 44.0 (36-46) % MCV 93.2 (80-100) fL MCH 31.8 (26-34) PG MCHC 34.2 (30-36) % RDW 12.7 (11.6-14.8) % Plt Count 282 (150-400) X10^3/uL Neut % (Auto) 55.0 (50-75) % Lymph % (Auto) 33.0 (25-40) % [place] % (Auto) 7.7 (3-14) % Eos % (Auto) 3.4 (2-4) % Baso % (Auto) 0.9 (0-2) % Neut # (Auto) 2400 (4739-0382) /uL Lymph # (Auto) 1400 (3995-3846) /uL [place] # (Auto) 300 (0-900) /uL Eos # (Auto) 100 (0-450) /uL Baso # (Auto) 0 (0-100) /uL PT 11.2 (9.4-12.5) SECONDS INR 1.0 (0.9-1.3) APTT 30 (25.1-36.5) SECONDS Sodium 137 (137-145) mmol/L Potassium 3.9 (3.4-5.1) mmol/L Chloride 101 (98-107) mmol/L Carbon Dioxide 25 (22-32) mmol/L BUN 12 (7-17) mg/dL Creatinine 0.72 (0.52-1.04) mg/dL Estimated GFR > 60 (>60) mL/min BUN/Creatinine Ratio 16.7 (6-22) Glucose 110 H (70-100) mg/dL Lactate 1.7 (0.7-2.1) mmol/L Calcium 9.8 (8.4-10.2) mg/dL Total Bilirubin 0.7 (0.2-1.3) mg/dL AST 77 H (14-36) IU/L ALT 94 H (<35) IU/L Alkaline Phosphatase 58 (38-126) U/L Total Protein 8.4 H (6.3-8.2) g/dL Albumin 4.7 (3.5-5.0) g/dL Globulin 3.7 (1.7-4.1) g/dL Albumin/Globulin Ratio 1.3 (1.0-2.8) Lipase 86 (23-300) U/L Procalcitonin 0.04 (<0.5) ng/mL Urine RBC 0-1/hpf (0-5/HPF) Urine WBC 0-1/hpf (0-5/HPF) Ur Squamous Epith Cells 5-10 /hpf H (0-5/HPF) Urine Bacteria Many (>30) H (None) Ur Culture Indicated? Cult not indicated Chlamy pneumoniae PCR Not detected (Not Detect) Adenovirus (PCR) Not detected (Not Detect) B.parapertussis DNA PCR Not detected (Not Detecte) Coronavirus OC43 (PCR) Not detected (Not Detect) Coronavirus HKU1 (PCR) Not detected (Not Detect) Coronavirus 229E (PCR) Not detected (Not Detect) SARS-CoV-2 (PCR) Not detected (Not Detecte) Coronavirus NL63 (PCR) Not detected (Not Detect) Human Metapneumovir PCR Not detected (Not Detect) Influenza Type A (PCR) Not detected (Not Detect) Influenza Type B (PCR) Not detected (Not Detect) M. pneumoniae (PCR) Not detected (Not Detect) Parainfluenza 1 (PCR) Not detected (Not Detect) Parainfluenza 2 (PCR) Not detected (Not Detect) Parainfluenza 3 (PCR) Not detected (Not Detect) Parainfluenza 4 (PCR) Not detected (Not Detect) RSV (PCR) Not detected (Not Detect) Entero/Rhino (PCR) Not detected (Not Detect) Point of care testing: Point of Care Testing Test Results Negative Urine Dip Bedside Urine Glucose Negative Bedside Urine Bilirubin - Negative Bedside Urine Ketone - Negative Urine Specific [place] 1.005 Bedside Urine Occult Blood + Bedside Urine pH 6.0 Bedside Urine Protein - Negative Bedside Urine Urobilinogen - Negative Bedside Urine Nitrite - Negative Bedside Urine Leukocytes - Negative Esterase Imaging Data CT scan - abdomen/pelvis: Radiologist's Impression: [address] [address] [address] Scan Report Signed Patient: Kaylin Groves MR#: [id number] : 1995 Acct:[id number] Age/Sex: 27 / F Date of Service: 06/13/23 Loc: ED Accession Number: [id number] Procedure: CT abdomen pelvis w con Ordering Provider: Cindy Ferguson D.O. PROCEDURE: CT ABDOMEN PELVIS W CON INDICATIONS: left flank/abd pain, diarrhea, hx of pyelo in past. TECHNIQUE: After the administration of intravenous contrast, axial sections acquired from the lung bases to the pubic symphysis. Coronal and sagittal reformats were performed. For radiation dose reduction, the following was used: automated exposure control, adjustment of mA and/or kV according to patient size. COMPARISON: [facility], CT, CT ABDOMEN PELVIS W CON, 09/06/2018, 11:20. FINDINGS: Image quality: Excellent. Lung bases: Unremarkable. Heart: No significant findings. ABDOMEN: Liver: Mild diffuse hepatic steatosis. Mild hepatomegaly. Craniocaudal dimension of the liver is 21.25 cm . Gallbladder: Unremarkable without calcified stones. Biliary ducts: Unremarkable. Pancreas: Unremarkable. Spleen: Unremarkable. Adrenal Glands: Unremarkable. Kidneys and Ureters: Unremarkable. Stomach and Bowel: Stomach, small bowel loops, and colon are unremarkable. Peritoneum: No abnormal intraperitoneal fluid. No free air. Ventral Wall: No hernias. Abdominal Nodes: No retroperitoneal or mesenteric adenopathy by size criteria. Vessels: Aorta and inferior vena cava are normal in size. PELVIS: Pelvic Organs: Unremarkable. Bladder: Unremarkable. Pelvic Nodes: No enlarged lymph nodes. Miscellaneous: No hernias are seen. Bones: Unremarkable. IMPRESSION: 1. No acute abdominal process noted. No findings suggesting recurrent left pyelonephritis. 2. Mild hepatomegaly, mild diffuse hepatic steatosis. Dictated by: Kuldeep Hubbard M.D. on 06/13/2023 at 14:43 Approved by: Kuldeep Hubbard M.D. on 06/13/2023 at 14:46 ECG Data Attestation: I personally reviewed and interpreted this ECG as follows: Interpretation: Sinus rhythm rate of 71 RI 176 QRS 80 QTC 432. Nonspecific change no acute EKG changes appreciated. [facility] Narrative Medical decision making narrative: Patient has vitals do not reflect any signs of sepsis temperature 99? F T-max, no tachycardia, no tachypnea 98% room air. Patient has fairly appropriate labs white count is 4.4, hemoglobin is 15 with platelets of 282 coags are negative renal function electrolytes are appropriate lactate negative, LFTs are slightly elevated at 77 and 94 for AST and ALT but no elevated lipase or bilirubin. Procalcitonin is negative. Point of care dip is negative, urine microscopy shows greater than 30 bacteria but also 5-10 squamous epithelials. Respiratory panel was sent it is negative On exam patient is quite tender on her left lower quadrant abdomen she is had nausea vomiting fevers and diarrhea symptoms are concerning for possible pyelo which he is had in the past but also colitis or diverticulitis patient is immune compromised based on her medications. CT abdomen pelvis shows diffuse hepatic steatosis, mild hepatomegaly, no other acute changes noted. Patient received antiemetics and pain medication. On recheck patient has mildly improved but still uncomfortable. On recheck patient does not have any obvious signs of shingles or rash. We did discuss his a possible source. She does have bacteria but squamous epithelials in her urine she has had pyelonephritis past. Discussed with patient will cover for pyelonephritis with return precautions. Patient was given additional dose of pain medication here. She does take Percocet regularly so was given a short course of oxycodone so she may take additional tablets but not have additional Tylenol. Discussed return precautions all questions answered. Discharge Plan Departure Patient Disposition: Home Clinical Impression: Pyelonephritis Activity Restrictions/Additional Instructions: Follow up with your physician for recheck in the next several days to make sure your symptoms are resolving. You may take Tylenol up to a 1000 mg every 4 hours as needed for pain. You can take oxycodone 1-2 tablets every 6 hours as needed for pain. This medication can make you sleepy do not drive, perform hazardous activities or make any major decisions while taking it. This medication will make you constipated please take a stool softener once to twice daily until stools are soft and regular. Let your physician know that you have had a short term narcotic refill if you have a pain contract. Take oral antibiotics until completed. Prescription sent to [facility] in [place]. Please return for rapidly worsening symptoms, persistent fevers, persistent vomiting, lightheadedness or passing out, black or bloody stools or other new or concerning changes. Prescriptions: New sulfamethoxazole-trimethoprim [Bactrim DS] 800-160 mg tablet 1 tab PO Q12H Qty: 20 0RF oxycodone 5 mg tablet 5 mg PO QID PRN (Reason: pain) Qty: 14 0RF Rx Instructions: 1-2 tablets every 6 hours as needed for pain No Action medroxyprogesterone 10 mg tablet 10 mg PO DAILY Qty: 10 0RF letrozole 2.5 mg tablet 2.5 mg PO DAILY Qty: 5 0RF multivitamin capsule 1 cap PO DAILY zolpidem [Ambien] 10 mg Tablet 10 mg PO BEDTIME PRN (Reason: Insomnia) folic acid 1 mg tablet 3 mg PO QPM Patient Comments: TK ONE TO THREE TS PO QD levocetirizine 5 mg tablet 5 mg PO QPM Patient Comments: TK 1 T PO Q NIGHT piroxicam 20 mg capsule Patient Comments: TK 1 C PO QD Cimzia Starter Kit 400 mg/2 mL (200 mg/mL x 2) syringe kit clonidine HCl 0.1 mg tablet 0.1 mg PO BEDTIME fluoxetine 40 mg capsule 80 mg PO BEDTIME diazepam 5 mg tablet 5 mg PO BEDTIME metformin 500 mg tablet 500 mg PO BID tizanidine 2 mg tablet 2 mg PO ONCE PM metoprolol succinate 50 mg tablet extended release 24 hr 50 mg PO DAILY quetiapine [Seroquel XR] 150 mg Tablet Extended Release 24 Hr 150 mg PO BEDTIME oxycodone-acetaminophen 10-325 mg tablet 1 tab PO Q6H PRN (Reason: Pain, Severe) Patient Comments: TK 1 T PO Q 6 H PRN P Referrals: Grace Stone PA-C [Primary Care Provider] - Stand Alone Forms: Patient Portal/API
[2023-06-13] MEDS: KETOROLAC 30 MG/ML VIAL 15 MG IV (14:21)
[2023-06-13] MEDS: HYDROMORPHONE 1 MG INJ IV (15:09)
[2023-06-13] MEDS: TRIMETH/SULFA 160/800 (DS) TABLET 1 TAB PO (15:10)
== END 2023-06-13 15:27 | disposition home or self-care (01) ==
PROVIDERS: Emergency Provider Emergency Medicine; PCP Physician Assistant
DX: N12 Tubulo-interstitial nephritis, not specified as acute or chronic (principal); I10 Essential (primary) hypertension
CPT/HCPCS: 36415; 71045; 74177; 80053; 81003; 81015; 81025; 83605; 83690; 84145; 85025; 85610; 85730; 87040; 87633; 93005; 93010; 96374; 96375; 96376; 99284; J1170; J1885; J2405

== ENCOUNTER → 2023-08-02 11:50 | Outpatient (CLI) | payer MEDICARE, OTHER, SELFPAY ==
[2023-08-02 14:53] LABS: Urine N gonorrhoeae NOT DETECTED
[2023-08-02 14:54] LABS: Urine Chlamydia NOT DETECTED
--- NOTE | 2023-08-14 18:25 | PM.CALLCOV.1 ---
Call Coverage Note Note Date of Patient Contact: 08/14/23 Time of Patient Contact: 11:05 Narrative of Care Provided: Raine called, concerned about breathing and stuffiness r/to a cold she has. C/o coughing (worse at night), mild headache, sinus pressure, mucus. Denies a fever, aches, chills. Is 8 weeks and wants to know what's safe to take while . Her partner lavonne home something with acetaminophen, phenylephrine and she wants to be sure it's safe. Reviewed other medications she's on including tinidine. URI at 8 weeks of Reviewed safe medicines and comfort measures for URI in . Call provider or this urgent line if fever presents. RTC for scheduled visit.
== END ==
PROVIDERS: PCP Family Medicine; Visit Provider Specialist
DX: Z34.01 Encounter for supervision of normal first pregnancy, first trimester (principal); Z3A.01 Less than 8 weeks gestation of pregnancy
CPT/HCPCS: 87491; 87591

== ENCOUNTER → 2023-08-30 11:47 | Outpatient (CLI) | payer MEDICARE, OTHER, SELFPAY ==
[2023-08-30 13:33] LABS: Add Manual Diff / Slide Review NO; Basophils Absolute Auto 0 /uL (0-100); Basophils Percent Auto 0.3 % (0-2); Eosinophils Absolute Auto 0 /uL (0-450); Eosinophils Percent Auto 0.5 % (2-4); Hematocrit 42.2 % (36-46); Hemoglobin 14.7 g/dL (12.0-16.0); Lymphocytes Absolute Auto 1800 /uL (1100-4500); Lymphocytes Percent Auto 20.7 % (25-40); Mean Corpuscular HGB Conc 34.9 % (30-36); Mean Corpuscular Hemoglobin 31.2 PG (26-34); Mean Corpuscular Volume 89.4 fL (80-100); Monocytes Absolute Auto 600 /uL (0-900); Monocytes Percent Auto 6.4 % (3-14); Neutrophils Absolute Auto 6200 /uL (1500-7000); Neutrophils Percent Auto 72.1 % (50-75); Platelet Count 320 X10^3/uL (150-400); Red Blood Cell Count 4.72 X10^6/uL (4.0-5.2); Red Cell Distribution Width 12.6 % (11.6-14.8); White Blood Cell Count 8.6 X10^3/uL (4.5-11.0)
[2023-08-30 14:25] LABS: Hepatitis B Surface Antigen NEGATIVE s/c (NEGATIVE); Rubella Antibody IgG 3.3 IU/mL (>15)
[2023-08-30 14:41] LABS: HIV 1 & 2 Ab/Ag 4th Gen Combo NEGATIVE (NEGATIVE); Hep C Virus Ab w/Reflex Quant NEGATIVE s/c (NEGATIVE)
[2023-08-31 08:12] LABS: RPR Screen Non Reactive (Non Reactive)
[2023-08-31 12:08] LABS: Varicella IgG Antibody 2306 index (Immune >165)
== END ==
PROVIDERS: Specialist; PCP Family Medicine; Referring Provider Obstetrics & Gynecology; Visit Provider Obstetrics & Gynecology
DX: Z34.01 Encounter for supervision of normal first pregnancy, first trimester (principal); Z34.00 Encounter for supervision of normal first pregnancy, unspecified trimester
CPT/HCPCS: 36415; 80055; 86787; 86803; 86850; 86900; 86901; 87086; 87389

== ENCOUNTER → 2023-10-26 11:55 | Outpatient (CLI) | payer MEDICARE, OTHER, SELFPAY ==
[2023-10-26 12:29] LABS: Hematocrit 40.5 % (36-46); Hemoglobin 13.9 g/dL (12.0-16.0)
[2023-10-26 13:32] LABS: TSH w/ Reflex to FT4 1.09 uIU/mL (0.47-4.68)
== END ==
PROVIDERS: PCP Family Medicine; Referring Provider Specialist; Visit Provider Specialist
DX: Z34.02 Encounter for supervision of normal first pregnancy, second trimester (principal); R53.83 Other fatigue; Z3A.18 18 weeks gestation of pregnancy
CPT/HCPCS: 36415; 82105; 84443; 85014; 85018

== ENCOUNTER → 2023-11-24 11:41 | Outpatient (CLI) | payer MEDICARE, OTHER, SELFPAY | PROVIDERS: PCP Family Medicine; Visit Provider Obstetrics & Gynecology | DX: O99.891 Other specified diseases and conditions complicating pregnancy (principal); N89.8 Other specified noninflammatory disorders of vagina; Z3A.26 26 weeks gestation of pregnancy | CPT/HCPCS: 36415; 80076; 82950; 85014; 85018; 87480; 87510; 87660 ==

== ENCOUNTER → 2023-11-24 11:49 | Outpatient (CLI) | payer MEDICARE, OTHER, SELFPAY ==
[2023-11-24 14:43] LABS: Hematocrit 37.3 % (36-46); Hemoglobin 12.8 g/dL (12.0-16.0)
[2023-11-24 15:04] LABS: Alanine Aminotransferase 12 IU/L (<35); Albumin 3.8 g/dL (3.5-5.0); Albumin Globulin Ratio 1.3 (1.0-2.8); Alkaline Phosphatase 45 U/L (38-126); Aspartate Aminotransferase 17 IU/L (14-36); Bilirubin Total 0.4 mg/dL (0.2-1.3); GTT (PREG) 1 Hour PP 50gm Dose 90 mg/dL (76-139); Globulin 2.9 g/dL (1.7-4.1); HEMOLYSIS < 15 (0-50); Total Protein 6.7 g/dL (6.3-8.2)
== END ==
PROVIDERS: PCP Family Medicine; Referring Provider Obstetrics & Gynecology; Visit Provider Obstetrics & Gynecology
DX: Z34.02 Encounter for supervision of normal first pregnancy, second trimester (principal); Z3A.26 26 weeks gestation of pregnancy
CPT/HCPCS: 36415; 80076; 82950; 85014; 85018

== ENCOUNTER 2024-01-13 17:40 | Observation (INO) | payer MEDICARE, OTHER, SELFPAY ==
[2024-01-13 19:13] LABS: Add Manual Diff / Slide Review NO; Basophils Absolute Auto 0 /uL (0-100); Basophils Percent Auto 0.3 % (0-2); Eosinophils Absolute Auto 100 /uL (0-450); Eosinophils Percent Auto 0.5 % (2-4); Hematocrit 39.4 % (36-46); Hemoglobin 13.3 g/dL (12.0-16.0); Lymphocytes Absolute Auto 2100 /uL (1100-4500); Mean Corpuscular HGB Conc 33.8 % (30-36); Mean Corpuscular Hemoglobin 30.2 PG (26-34); Mean Corpuscular Volume 89.3 fL (80-100); Monocytes Absolute Auto 900 /uL (0-900); Monocytes Percent Auto 8.3 % (3-14); Neutrophils Absolute Auto 8000 /uL (1500-7000); Neutrophils Percent Auto 71.9 % (50-75); Platelet Count 260 X10^3/uL (150-400); Red Blood Cell Count 4.42 X10^6/uL (4.0-5.2); Red Cell Distribution Width 13.1 % (11.6-14.8); White Blood Cell Count 11.2 X10^3/uL (4.5-11.0)
[2024-01-13 19:14] LABS: Appearance Urine UA CLEAR; Bilirubin Urine UA NEGATIVE (NEGATIVE); Color Urine UA YELLOW; Glucose Urine UA NEGATIVE (Negative); Ketones Urine UA NEGATIVE (NEGATIVE); Leukocyte Esterase Urine UA NEGATIVE (NEGATIVE); Nitrite Urine UA NEGATIVE (Negative); Occult Blood Urine UA NEGATIVE (Negative); Protein Urine UA NEGATIVE (Negative); Urobilinogen Urine UA 0.2 E.U./dL (0.2)
[2024-01-13 19:19] LABS: Alanine Aminotransferase 15 IU/L (<35); Albumin Globulin Ratio 1.1 (1.0-2.8); Alkaline Phosphatase 59 U/L (38-126); Aspartate Aminotransferase 21 IU/L (14-36); BUN Creatinine Ratio 8.3 (6-22); Bilirubin Total 0.4 mg/dL (0.2-1.3); Blood Urea Nitrogen 4 mg/dL (7-17); Calcium 9.3 mg/dL (8.4-10.2); Carbon Dioxide 21 mmol/L (22-32); Chloride 107 mmol/L (98-107); Estimated Glomerular Filt Rate > 60 mL/min (>60); Globulin 3.6 g/dL (1.7-4.1); Glucose 80 mg/dL (70-100); HEMOLYSIS < 15 (0-50); Potassium 3.8 mmol/L (3.4-5.1); Sodium 136 mmol/L (137-145); Total Protein 7.6 g/dL (6.3-8.2)
[2024-01-13 19:30] LABS: Bacteria Urine Many (>30); Culture Indicated Urine Cult Not Indicated; RBC Urine 0-1/HPF (0-5/HPF); Squamous Epithelial Cell Urine 1-5 /HPF (0-5/HPF); Urine Volume 10mL (spun); WBC Urine 1-5/HPF (0-5/HPF)
--- NOTE | 2024-01-13 19:45 | DI.US.S_ITS ---
PROCEDURE: US OB LIMITED INDICATIONS: cervical length OUTSIDE/PRIOR DATING DATA: Last menstrual period (LMP): 06/08/2023. LMP-based estimated date of delivery (MIKE): 03/14/2024. First dating scan (date and location): 08/02/2023. Estimated date of delivery (MIKE) from first dating scan: 03/25/2024. The calculations are made using the ultrasound MIKE of 03/25/2024. TECHNIQUE: Real-time scanning was performed of the fetus, with image documentation. COMPARISON: Ob ultrasound 10/26/2023, 09/28/2023. FINDINGS: A single living intrauterine gestation is present. Presentation: Vertex. Placenta: Placental position is anterior, without previa. Amniotic fluid index: 18.4 cm, normal range is 5-24 cm. Single deepest vertical pocket is 7.3 cm. heart rate: 149 beats per minute. Maternal cervical canal: 3.6 cm long. Normal lower limit is 2.5 cm. Clinically estimated gestational age: 29 weeks, 5 days IMPRESSION: Single intrauterine gestation in vertex presentation with estimated age of 29 weeks, 5 days. Maternal cervical length is 3.6 cm long. Approved by: Ember Castaneda M.D.,Ph.D. on 01/13/2024 at 22:09
[2024-01-13 20:32] LABS: Fetal Fibronectin Negative
--- NOTE | 2024-01-13 21:50 | PM.OBTRLD ---
Visit Information Visit Information Date of evaluation: 01/13/24 On-call OB Provider: Yolis Cardenas Comments/Additional reasons for admission: 28yo at 29+6wks presented to triage for vaginal pain, pelvic pain, and lower back pain today. Denied leaking fluid or vaginal bleeding. Had some nausea earlier in the day. Denied fever or chills. Vital Signs Vital Signs: vitals in OBIX, within normal parameters, afebrile [facility] Medical History (Updated 01/13/24 @ 21:55 by Yolis Cardenas DO) Ovarian cyst (~2012) Infertility (~2012) PCOS (polycystic ovarian syndrome) (~2012) Ankylosing spondylitis (~2011) Depression (~2011) Anxiety (~2011) History of immunosuppression Pyelonephritis Asthma (~2011) Seasonal allergies Endometriosis (~2011) Surgical History (Updated 07/21/23 @ 10:50 by Earlene Calloway RN) History of skin surgery [place] teeth extracted History of placement of ear tubes Anesthesia History of laparoscopy History of foot surgery (~2011) Family History (Updated 08/19/23 @ 20:19 by Karina Bass) Father Hypertension Hyperlipidemia A-fib Sarcoidosis Mother Depression Anxiety MEN 1 (multiple endocrine neoplasia) H/O parathyroidectomy Osteoarthritis Cancer Mental health problem Grandfather Lymphoma Prostatitis Cancer Grandmother Diabetes mellitus Hypertension Family estrangement Hyperlipidemia Mental health problem Grandfather Hypertension Stroke Heart attack Smoker Grandmother Diabetes mellitus Hypertension Gastric ulcer Uncle Rheumatoid arthritis Uncle MEN 1 (multiple endocrine neoplasia) Brother Anxiety ADHD Mental health problem Social History marital status: number of children: 0 household members: spouse lives independently: Yes caregiver/support person: No housing: house pets and animals: Yes (dog) education level: college (some college) occupational status: unemployed and student current occupational exposures/hazards: No special va needs: No travel history: recent (Domestic only) seatbelt use: always water heater temp set < 120 deg: Yes working smoke detector in home: Yes fire extinguisher in home: Yes carbon monox detector in home: Yes firearms in home: No do you feel safe at home: Yes Smoking Status: Never smoker second hand exposure: No alcohol intake: former (~2-4 glasses wine/week when not ) substance use type: does not use during the past year weight has: decreased > 10 lbs well-balanced diet: daily or most days daily servings fruits/ve or more times/day caffeine: No Type(s) of exercise: walking frequency: 1-2 times per week Objective Labs 01/13/24 18:25 01/13/24 18:25 Labs: Laboratory Results - last 24 hr 01/13/24 01/13/24 18:25 19:55 WBC 11.2 H RBC 4.42 Hgb 13.3 Hct 39.4 MCV 89.3 MCH 30.2 MCHC 33.8 RDW 13.1 Plt Count 260 Neut % (Auto) 71.9 Lymph % (Auto) 19.0 L [place] % (Auto) 8.3 Eos % (Auto) 0.5 L Baso % (Auto) 0.3 Neut # (Auto) 8000 H Lymph # (Auto) 2100 [place] # (Auto) 900 Eos # (Auto) 100 Baso # (Auto) 0 Sodium 136 L Potassium 3.8 Chloride 107 Carbon Dioxide 21 L BUN 4 L Creatinine 0.48 L Estimated GFR > 60 BUN/Creatinine Ratio 8.3 Glucose 80 Calcium 9.3 Total Bilirubin 0.4 AST 21 ALT 15 Alkaline Phosphatase 59 Total Protein 7.6 Albumin 4.0 Globulin 3.6 Albumin/Globulin Ratio 1.1 Urine Color Yellow Urine Appearance Clear Urine pH 6.0 Ur Specific [place] 1.010 Urine Protein Negative Urine Glucose (UA) Negative Urine Ketones Negative Urine Occult Blood Negative Urine Nitrate Negative Urine Bilirubin Negative Urine Urobilinogen 0.2 Ur Leukocyte Esterase Negative Urine RBC 0-1/hpf Urine WBC 1-5/hpf Ur Squamous Epith Cells 1-5 /hpf Urine Bacteria Many (>30) H Ur Culture Indicated? Cult not indicated Vol Urine Centrifuged 10ml (spun) Fibronectin Negative Evaluation Evaluation Baseline heart rate: 140 Variability: Moderate (11-25) monitor accelerations: Present (10x10) Monitor Decelerations: Absent Contraction Frequency (minutes): 5 Status: Category l Comments: cervix posterior per RN exam cervical length on formal US was 3.6cm Diagnosis, Plan/Disposition Final Diagnosis (1) Back pain during : Status: Acute Plan/Disposition Plan: 28yo at 29+6wks with pelvic and low back pain. No infectious source of her pain identified, given afebrile, high-normal WBCs, UA likely dirty catch (no pyuria or hematuria). R/o labor given negative FFN, normal cervical length, and high/posterior cervix on RN exam. Pt reported some of her pain improved during her triage evaluation, though back pain remained. -recommended tylenol and heating pad for low back pain -pt given return precautions and discharged to home OB Disposition: home
== END 2024-01-13 21:26 | disposition home or self-care (01) ==
LOC: LABOR 17:43
PROVIDERS: Admitting Provider Student in an Organized Health Care Education/Training Program; PCP Family Medicine; Referring Provider Student in an Organized Health Care Education/Training Program; Visit Provider Student in an Organized Health Care Education/Training Program
DX: O26.893 Other specified pregnancy related conditions, third trimester (principal); M54.50 Low back pain, unspecified; R10.2 Pelvic and perineal pain; Z3A.29 29 weeks gestation of pregnancy
CPT/HCPCS: 59025; 59050; 76815; 80053; 81001; 82731; 85025; 96360; G0378; G0379

== ENCOUNTER 2024-02-10 14:17 | Observation (INO) | payer MEDICARE, OTHER, SELFPAY ==
[2024-02-10] MEDS: LACTATED RINGERS 1,000 ML 1000 ML IV (15:42)
[2024-02-10] MEDS: PROMETHAZINE 25 MG TABLET PO (15:42)
[2024-02-10] MEDS: ACETAMINOPHEN 325 MG TABLET 650 MG PO (15:45)
== END 2024-02-10 16:57 | disposition home or self-care (01) ==
PROVIDERS: Admitting Provider Obstetrics & Gynecology; PCP Family Medicine; Referring Provider Obstetrics & Gynecology; Visit Provider Obstetrics & Gynecology
DX: O26.893 Other specified pregnancy related conditions, third trimester (principal); R11.2 Nausea with vomiting, unspecified; R10.2 Pelvic and perineal pain; Z3A.33 33 weeks gestation of pregnancy
CPT/HCPCS: G0378; 59025; 59050; 84112; 96360; G0379

== ENCOUNTER 2024-02-17 10:46 | Observation (INO) | payer MEDICARE, OTHER, SELFPAY | END 2024-02-17 11:47 | disposition home or self-care (01) | PROVIDERS: Admitting Provider Obstetrics & Gynecology; PCP Family Medicine; Referring Provider Obstetrics & Gynecology; Visit Provider Obstetrics & Gynecology | DX: O99.213 Obesity complicating pregnancy, third trimester (principal); E66.9 Obesity, unspecified; O99.413 Diseases of the circulatory system complicating pregnancy, third trimester; I99.9 Unspecified disorder of circulatory system; Z3A.34 34 weeks gestation of pregnancy | CPT/HCPCS: 59025; G0378; G0379 ==

== ENCOUNTER 2024-02-24 10:59 | Observation (INO) | payer MEDICARE, OTHER, SELFPAY ==
[2024-02-24 12:35] LABS: Add Manual Diff / Slide Review NO; Basophils Absolute Auto 0 /uL (0-100); Basophils Percent Auto 0.5 % (0-2); Eosinophils Absolute Auto 0 /uL (0-450); Eosinophils Percent Auto 0.4 % (2-4); Hematocrit 36.3 % (36-46); Hemoglobin 12.4 g/dL (12.0-16.0); Lymphocytes Absolute Auto 1500 /uL (1100-4500); Lymphocytes Percent Auto 16.6 % (25-40); Mean Corpuscular HGB Conc 34.2 % (30-36); Mean Corpuscular Hemoglobin 30.1 PG (26-34); Monocytes Absolute Auto 700 /uL (0-900); Monocytes Percent Auto 8.1 % (3-14); Neutrophils Absolute Auto 6600 /uL (1500-7000); Neutrophils Percent Auto 74.4 % (50-75); Platelet Count 214 X10^3/uL (150-400); Red Blood Cell Count 4.12 X10^6/uL (4.0-5.2); Red Cell Distribution Width 13.7 % (11.6-14.8); White Blood Cell Count 8.9 X10^3/uL (4.5-11.0)
[2024-02-24 12:42] LABS: Alanine Aminotransferase 16 IU/L (<35); Albumin 3.5 g/dL (3.5-5.0); Albumin Globulin Ratio 1.1 (1.0-2.8); Alkaline Phosphatase 78 U/L (38-126); Aspartate Aminotransferase 20 IU/L (14-36); BUN Creatinine Ratio 6.9 (6-22); Bilirubin Total 0.5 mg/dL (0.2-1.3); Blood Urea Nitrogen 4 mg/dL (7-17); Calcium 8.8 mg/dL (8.4-10.2); Carbon Dioxide 21 mmol/L (22-32); Chloride 104 mmol/L (98-107); Estimated Glomerular Filt Rate > 60 mL/min (>60); Globulin 3.1 g/dL (1.7-4.1); Glucose 86 mg/dL (70-100); HEMOLYSIS < 15 (0-50); Potassium 3.8 mmol/L (3.4-5.1); Sodium 136 mmol/L (137-145); Total Protein 6.6 g/dL (6.3-8.2); Uric Acid 6.5 mg/dL (2.5-6.2)
[2024-02-24 13:49] LABS: Creatinine Urine Random 156.45 mg/dL; Protein (Total) Urine Random 18 mg/dL (0-12); Protein Creatinine Ratio Urine 0.11 GRAM/24H
== END 2024-02-24 13:53 | disposition home or self-care (01) ==
PROVIDERS: Admitting Provider Obstetrics & Gynecology; PCP Family Medicine; Referring Provider Obstetrics & Gynecology; Visit Provider Obstetrics & Gynecology
DX: O60.03 Preterm labor without delivery, third trimester (principal); O99.213 Obesity complicating pregnancy, third trimester; E66.9 Obesity, unspecified; O99.413 Diseases of the circulatory system complicating pregnancy, third trimester; I99.9 Unspecified disorder of circulatory system; Z3A.35 35 weeks gestation of pregnancy
CPT/HCPCS: 36415; 59025; 80053; 84550; 85025; G0378; G0379

== ENCOUNTER 2024-02-25 19:02 | Inpatient (IN) | payer MEDICARE, OTHER, SELFPAY ==
[2024-02-25 19:37] LABS: Appearance Urine UA CLEAR; Bilirubin Urine UA NEGATIVE (NEGATIVE); Color Urine UA YELLOW; Glucose Urine UA NEGATIVE (Negative); Ketones Urine UA NEGATIVE (NEGATIVE); Leukocyte Esterase Urine UA NEGATIVE (NEGATIVE); Nitrite Urine UA NEGATIVE (Negative); Occult Blood Urine UA NEGATIVE (Negative); Protein Urine UA NEGATIVE (Negative); Specific Gravity Urine UA 1.015 (1.000-1.035); Urobilinogen Urine UA 0.2 E.U./dL (0.2)
[2024-02-25 19:48] LABS: Add Manual Diff / Slide Review NO; Basophils Absolute Auto 100 /uL (0-100); Basophils Percent Auto 0.7 % (0-2); Eosinophils Absolute Auto 100 /uL (0-450); Eosinophils Percent Auto 0.7 % (2-4); Hematocrit 37.3 % (36-46); Hemoglobin 12.7 g/dL (12.0-16.0); Lymphocytes Absolute Auto 2300 /uL (1100-4500); Lymphocytes Percent Auto 19.6 % (25-40); Mean Corpuscular Hemoglobin 29.7 PG (26-34); Mean Corpuscular Volume 87.3 fL (80-100); Monocytes Absolute Auto 1000 /uL (0-900); Neutrophils Absolute Auto 8100 /uL (1500-7000); Platelet Count 223 X10^3/uL (150-400); Red Blood Cell Count 4.27 X10^6/uL (4.0-5.2); Red Cell Distribution Width 13.8 % (11.6-14.8); White Blood Cell Count 11.6 X10^3/uL (4.5-11.0)
[2024-02-25 19:53] LABS: Bacteria Urine Moderate (10-30); Culture Indicated Urine Cult Not Indicated; RBC Urine None Seen (0-5/HPF); Squamous Epithelial Cell Urine 1-5 /HPF (0-5/HPF); Urine Volume 10mL (spun); WBC Urine 1-5/HPF (0-5/HPF)
[2024-02-25 20:03] LABS: Alanine Aminotransferase 17 IU/L (<35); Albumin 3.7 g/dL (3.5-5.0); Albumin Globulin Ratio 1.2 (1.0-2.8); Alkaline Phosphatase 86 U/L (38-126); Aspartate Aminotransferase 21 IU/L (14-36); BUN Creatinine Ratio 9.6 (6-22); Bilirubin Total 0.4 mg/dL (0.2-1.3); Blood Urea Nitrogen 5 mg/dL (7-17); Calcium 9.4 mg/dL (8.4-10.2); Carbon Dioxide 19 mmol/L (22-32); Chloride 103 mmol/L (98-107); Estimated Glomerular Filt Rate > 60 mL/min (>60); Globulin 3.1 g/dL (1.7-4.1); Glucose 85 mg/dL (70-100); HEMOLYSIS < 15 (0-50); Potassium 3.9 mmol/L (3.4-5.1); Sodium 134 mmol/L (137-145); Total Protein 6.8 g/dL (6.3-8.2)
[2024-02-25 20:03] LABS: Creatinine Urine Random 71.85 mg/dL; Protein (Total) Urine Random 26 mg/dL (0-12); Protein Creatinine Ratio Urine 0.36 GRAM/24H
[2024-02-25 21:00] VITALS: BP 135/86
--- NOTE | 2024-02-25 21:09 | P.HPOB_ITS ---
OB HPI Date/Time Date of admission: 02/25/24 Date Patient Seen: 02/25/24 Time Patient Seen: 21:12 History of Present Condition Chief complaint: preclampsia MIKE Calculator 2 Estimated Delivery Date Method Current WG Current Estimate 03/24/24 Ultrasound #1 36w 0d Other Estimates 03/14/24 LMP (Certain) 37w 3d 03/20/24 Ultrasound #2 36w 4d Estimated Gestational Age (weeks): 36 : 1 Para: 0 Narrative: Patient is a 28-year-old 1 para 0 at 36 weeks' gestation by a first- trimester ultrasound who presented with complaint of headache and elevated blood pressures at home. She was seen yesterday and had normal preeclampsia labs as well as a reactive nonstress test. Today her urine random protein is 26. Her uric acid is 6.5. care: good care, initiated at week # (6), number of visits (9) and pounds weight gain (33) Dating criteria OB: LMP confirmed by 1st trimester US Ultrasounds: normal 1st trimester US and normal mid trimester US Obstetrical complications: preeclampsia and autoimmune disease Medical complications OB: gastrointestinal (MEN type 1, ), psychiatric (depression/anxiety) and musculoskeletal (fibromyalgia/ankylosing spondylitis) Indications Indication for induction OB: gestational HTN/pre-eclampsia (severe features) and nonreassuring APT Operative indications ( section): other (Patient had primary C section scheduled for 39 weeks) Preadmission Labs Last OB Lab Results: 2 Blood Type O Positive 08/30/23 12:15 Antibody Screen Negative 08/30/23 12:15 Hct 37.3 % (36-46) 02/25/24 19:40 Hgb 12.7 g/dL (12.0-16.0) 02/25/24 19:40 Hep Bs Antigen Negative s/c (NEGATIVE) 08/30/23 12:15 Hepatitis C Antibody Negative s/c (NEGATIVE) 08/30/23 12:15 Rubella Antibody 3.3 IU/mL (>15) L 08/30/23 12:15 VZV IgG Antibody 2306 index (Immune >165) 08/30/23 12:15 Glucose 1 Hr 50 gm 90 mg/dL (76-139) 11/24/23 13:26 Hemoglobin A1c 5.1 % (4.6-6.2) 04/02/17 11:14 -: Chlamydia screen: negative, Gonorrhea screen: negative and Urine: negative -: PAP smear: Normal Genetic Screens: Cell-free DNA: Normal (normal male) and Alpha-fetoprotein: Normal External Labs -: Urine: negative Evaluation Evaluation Baseline heart rate: 140 Variability: Average (6-10) monitor accelerations: Absent Monitor Decelerations: Absent Status: Category ll PFS Medical History (Updated 01/20/24 @ 10:37 by Sandi Stapleton MD) Ovarian cyst (~2012) Infertility (~2012) PCOS (polycystic ovarian syndrome) (~2012) Ankylosing spondylitis (~2011) Depression (~2011) Anxiety (~2011) History of immunosuppression Pyelonephritis Asthma (~2011) Seasonal allergies Endometriosis (~2011) Surgical History (Updated 07/21/23 @ 10:50 by Earlene Calloway RN) History of skin surgery [place] teeth extracted History of placement of ear tubes Anesthesia History of laparoscopy History of foot surgery (~2011) Family History (Updated 08/19/23 @ 20:19 by Karina Bass) Father Hypertension Hyperlipidemia A-fib Sarcoidosis Mother Depression Anxiety MEN 1 (multiple endocrine neoplasia) H/O parathyroidectomy Osteoarthritis Cancer Mental health problem Grandfather Lymphoma Prostatitis Cancer Grandmother Diabetes mellitus Hypertension Family estrangement Hyperlipidemia Mental health problem Grandfather Hypertension Stroke Heart attack Smoker Grandmother Diabetes mellitus Hypertension Gastric ulcer Uncle Rheumatoid arthritis Uncle MEN 1 (multiple endocrine neoplasia) Brother Anxiety ADHD Mental health problem Social History marital status: number of children: 0 household members: spouse lives independently: Yes caregiver/support person: No housing: house pets and animals: Yes (dog) education level: college (some college) occupational status: unemployed and student current occupational exposures/hazards: No special va needs: No travel history: recent (Domestic only) seatbelt use: always water heater temp set < 120 deg: Yes working smoke detector in home: Yes fire extinguisher in home: Yes carbon monox detector in home: Yes firearms in home: No do you feel safe at home: Yes Smoking Status: Never smoker second hand exposure: No alcohol intake: former (~2-4 glasses wine/week when not ) substance use type: does not use during the past year weight has: decreased > 10 lbs well-balanced diet: daily or most days daily servings fruits/ve or more times/day caffeine: No Type(s) of exercise: walking frequency: 1-2 times per week Meds Home Medications and Allergies Home Medications Medication Instructions Recorded Confirmed Type folic acid 1 mg tablet 3 mg PO QPM 06/05/18 02/17/24 History diazepam 5 mg tablet 2 mg PO BEDTIME 06/13/23 02/17/24 History fluoxetine 40 mg capsule 80 mg PO BEDTIME 06/13/23 02/17/24 History metformin 500 mg tablet 500 mg PO BID 06/13/23 02/17/24 History metoprolol succinate 50 mg 50 mg PO DAILY 06/13/23 02/17/24 History tablet,extended release 24 hr vitamin-ferrous sulfate tab PO DAILY 07/21/23 02/17/24 History 27 mg iron-folic acid 0.8 mg tablet ondansetron 4 mg disintegrating 4 mg PO Q6H PRN nausea and 12/15/23 02/17/24 Rx tablet vomiting in #30 tabs oxycodone-acetaminophen 10 mg-325 1 tab PO Q8H PRN pain 01/13/24 02/17/24 History mg tablet propranolol 10 mg tablet 10 mg PO 3XD 01/13/24 02/17/24 History quetiapine 100 mg tablet 200 mg PO ONCE PM 01/13/24 02/17/24 History tizanidine 2 mg tablet 2 mg PO ONCE PM 01/13/24 02/17/24 History promethazine 25 mg tablet 25 mg PO .COMPLEX PRN nausea #30 02/14/24 02/17/24 Rx tabs Allergies Allergy/AdvReac Type Severity Reaction Status Date / Time tioconazole Allergy Intermediate Swelling Verified 02/17/24 10:34 [From Monistat 1 of vagina (tioconazole)] OB Exam Vital signs Blood Pressure: 160/106 Pulse Rate: 76 Respiratory Rate: 16 Narrative Exam Narrative: Generally: Patient on left side, no acute distress Lungs: Clear to auscultation bilaterally Cardiovascular: Regular rate and rhythm Fundal height: 39 cm Estimated weight: 6 - 6 1/2 pounds Extremities: 3+ DTRs upper and lower extremities, 1 beat of clonus, 1+ pitting edema Objective Labs 02/25/24 19:40 02/25/24 19:40 Labs: Laboratory Results - last 24 hr 02/25/24 02/25/24 19:25 19:40 WBC 11.6 H RBC 4.27 Hgb 12.7 Hct 37.3 MCV 87.3 MCH 29.7 MCHC 34.0 RDW 13.8 Plt Count 223 Neut % (Auto) 70.0 Lymph % (Auto) 19.6 L [place] % (Auto) 9.0 Eos % (Auto) 0.7 L Baso % (Auto) 0.7 Neut # (Auto) 8100 H Lymph # (Auto) 2300 [place] # (Auto) 1000 H Eos # (Auto) 100 Baso # (Auto) 100 Sodium 134 L Potassium 3.9 Chloride 103 Carbon Dioxide 19 L BUN 5 L Creatinine 0.52 Estimated GFR > 60 BUN/Creatinine Ratio 9.6 Glucose 85 Calcium 9.4 Total Bilirubin 0.4 AST 21 ALT 17 Alkaline Phosphatase 86 Total Protein 6.8 Albumin 3.7 Globulin 3.1 Albumin/Globulin Ratio 1.2 Urine Color Yellow Urine Appearance Clear Urine pH 7.0 Ur Specific [place] 1.015 Urine Protein Negative Urine Glucose (UA) Negative Urine Ketones Negative Urine Occult Blood Negative Urine Nitrate Negative Urine Bilirubin Negative Urine Urobilinogen 0.2 Ur Leukocyte Esterase Negative Urine RBC None seen Urine WBC 1-5/hpf Ur Squamous Epith Cells 1-5 /hpf Urine Bacteria Moderate (10-30) H Ur Culture Indicated? Cult not indicated Vol Urine Centrifuged 10ml (spun) U Random Total Protein 26 H Urine Creatinine 71.85 Protein/Creatinin Ratio 0.36 Assessment and Plan Assessment and Plan Assessment and Plan narrative: Assessment: 28-year-old 1 para 0 at 36 weeks' gestation with preeclampsia with severe preeclampsia Nonreassuring heart rate tracing MEN type 1 Ankylosing spondylitis Fibromyalgia Anxiety and depression Plan: Primary low-transverse section The risks, benefits, and alternatives to the procedure were explained to the patient. The risks including bleeding, infection, injury to the bowel, bladder, or ureters. She understands these risks and agrees to proceed. A full par Q was held and consent form was signed. 3 g of [facility] notified Respiratory therapy notified Time-Based Coding :: [TOTAL MINUTES] spent with patient and on the chart (including review of chart, obtaining history, exam, reviewing outside data, placing orders, documenting exam and treatment plan, and counseling patient) on [DATE].
[2024-02-25] MEDS: LACTATED RINGERS 1,000 ML 999 ML IV ×2 (21:20→22:45)
[2024-02-25 21:21] VITALS: BP 160/106; PULSE 76; RESP 16
[2024-02-25 21:31] LABS: Add Manual Diff / Slide Review NO; Basophils Absolute Auto 100 /uL (0-100); Basophils Percent Auto 0.7 % (0-2); Eosinophils Absolute Auto 100 /uL (0-450); Eosinophils Percent Auto 0.7 % (2-4); Hematocrit 39.3 % (36-46); Hemoglobin 13.3 g/dL (12.0-16.0); Lymphocytes Absolute Auto 2500 /uL (1100-4500); Lymphocytes Percent Auto 20.3 % (25-40); Mean Corpuscular Volume 88.3 fL (80-100); Monocytes Absolute Auto 1000 /uL (0-900); Monocytes Percent Auto 8.1 % (3-14); Neutrophils Absolute Auto 8500 /uL (1500-7000); Neutrophils Percent Auto 70.2 % (50-75); Platelet Count 249 X10^3/uL (150-400); Red Blood Cell Count 4.45 X10^6/uL (4.0-5.2); Red Cell Distribution Width 13.5 % (11.6-14.8); White Blood Cell Count 12.1 X10^3/uL (4.5-11.0)
--- NOTE | 2024-02-25 21:38 | PM.PREOP ---
Pre-operative Note Interval Note History & Physical reviewed/Exam performed by Physician: Yes Changes to H&P: No H&P completed within 30 days and has changed as indicated here:: 02/25/24
[2024-02-25 21:48] VITALS: BP 146/89; PULSE 80
[2024-02-25] MEDS: METOPROLOL ER 50 MG TABLET PO (21:48)
[2024-02-25] MEDS: CITRIC ACID/SODIUM CITRATE 15 ML SOLUTION 30 ML PO (22:05)
[2024-02-25] MEDS: CEFAZOLIN VIAL 3 GM in SODIUM CHLORIDE 0.9% 100 ML IV (22:20)
--- NOTE | 2024-02-25 22:43 | SUR.OPER ---
Supine on Padded OR bed, head on pillow, safety belt at thigh, arms secured on padded arm boards at <90 degrees abduction. Bump under right buttock. Legs uncrossed with pillow under knees, gel pad to heels, tape over blanket to lower legs.
[2024-02-25] MEDS: TRANEXAMIC ACID 1,000 MG in SODIUM CHLORIDE 0.9% 100 ML 200 MG IV (22:45)
--- NOTE | 2024-02-25 22:57 | SUR.OPER ---
FHT's 145 @ 2225. TOB live male @ 3201, Cord blood and placenta to OB with OB RN
--- NOTE | 2024-02-25 23:25 | PM.OBCS.1 ---
Operative Date/Time/Diagnoses Date of procedure: 02/25/24 Time of procedure: 23:25 Pre-op diagnosis: Thirty-six weeks' gestation Severe preeclampsia Ankylosing spondylitis MEN type 1 Scheduled for a section at 39 weeks Post-op diagnosis: same Procedure & Clinicians Procedure: Primary low-transverse section Same procedure as scheduled: Yes Indications: 28-year-old 1 para 0 at 36 weeks' gestation with severe preeclampsia, ankylosing spondylitis, MEN type 1 who was scheduled for a primary section at 39 weeks' gestation. Nonreassuring heart rate tracing Surgeon: Iesha Gonzales Click Yes if Unassisted: No Liquid Waste Treatment Plant Operator: Keith Tariq Reason for Liquid Waste Treatment Plant Operator: The public relations assistant was necessary to retract upon entry into the abdomen and uterus. He assisted with delivery of the with fundal pressure. He assisted with closure with retraction, and clipping of suture. Anesthesia Type: Spinal (With Duramorph) Operative Notes Findings: Live male infant in the LUCA presentation Nuchal cord x1 Normal tubes and ovaries Closure Type: primary Specimen(s): cord blood and placenta Intraoperative meds administered: Acetaminophen, Duramorph, Ketorolac, Pitocin and Tranexamic acid Applied: Catheter (To continuous drainage) Estimated Blood Loss (mL): 560 Blood products transfused: none Procedure in detail: After informed consent was obtained, the patient was taken to the operating room where she was placed in the seated position. After spinal anesthesia with Duramorph was administered, she was placed in the dorsal supine position with a leftward tilt, she was prepped, Traxi was placed, and she was draped in the usual sterile fashion. A time-out was performed. After spinal anesthesia was found to be adequate, a Pfannenstiel skin incision was made, 2 fingerbreadths above the pubic symphysis, and carried down to the underlying layer fascia. The fascia was nicked in the midline and the incision extended bilaterally scissors. There was an area of brisk bleeding and a [id number] suture with 2-0 Vicryl was placed for hemostasis. The superior aspect of the fascial incision was grasped with the Nathaniel clamps, elevated, and the underlying rectus muscles dissected off sharply and bluntly. Attention was then turned to the inferior aspect of this incision which in a similar fashion, grasped with the Nathaniel clamps, elevated, and the underlying rectus muscles dissected off sharply and bluntly. The rectus muscles were in the midline. The peritoneum was identified, grasped between 2 hemostats, and entered sharply with the Metzenbaum scissors. This incision was extended bluntly. The bladder blade was inserted. The vesicouterine peritoneum was identified, grasped with pickup, and entered sharply with the Metzenbaum scissors. This incision was extended bilaterally, and the bladder flap created digitally. The bladder blade was reinserted. The lower uterine segment was incised in a transverse fashion. Upon entering the amniotic sac there was clear amniotic fluid. The uterine incision was extended bluntly. The 's head was delivered without difficulty. The nose and mouth were suctioned with bulb suction. The was wrapped in warm blankets. After 1 minute, the cord was double clamped and cut. Cord bloods were obtained. The placenta was delivered by expression. The uterus was cleared of all clots and debris. The uterine incision was closed with 1. Chromic in a running interlocking fashion, and a second layer of the same suture was used for an imbricating layer. Hemostasis was achieved. There was a small superficial area of bleeding on the serosa, and this was cauterized with the Bovie for hemostasis. The tubes and ovaries were examined and were found to be normal. The gutters were cleared of all clots and debris. The peritoneum was closed using 2-0 Vicryl in a running fashion. The fascia was reapproximated using 0 Vicryl in a running fashion. The subcutaneous layer was copiously irrigated with warm normal saline. Six simple interrupted sutures of 3-0 Vicryl were placed to reapproximate the subcutaneous layer. The skin was closed with 4-0 Monocryl in a subcuticular fashion. Steri-Strips and an Aquacel dressing were placed. The uterus was expressed of a small amount of old blood. There were 50 cc of clear yellow urine in the bladder. Sponge, lap, and instrument counts were correct x2. The patient tolerated the procedure well, and was taken to PACU in stable condition. Complications: none Baby 1: Gender: Male Presentation: vertex Position: Right Occiput Anterior Placental Delivery Description: Expressed Cord Vessel Description: 3 Vessels, Nuchal Cord (x1) and Clamped/Cut (After 1 minute) score (1 min): 8 score (5 min): 8 weight: 5 lb 6 oz Post-operative Condition: stable Disposition: PACU Aftercare: routine postop
[2024-02-25 23:48] VITALS: BP 147/90; PULSE 65; RESP 11; TEMP 36.8; O2SAT 100
[2024-02-25 23:52] VITALS: BP 156/105; PULSE 63; RESP 11; O2SAT 100
[2024-02-25 23:57] VITALS: BP 141/95; PULSE 66; RESP 12; O2SAT 100
[2024-02-26] MEDS: OXYCODONE IR 5 MG TABLET PO (00:01)
[2024-02-26 00:02] VITALS: BP 153/99; PULSE 66; RESP 11; O2SAT 100
[2024-02-26] MEDS: ACETAMINOPHEN IV 1,000 MG/100 ML VIAL 400 MG IV (00:04)
[2024-02-26] MEDS: LACTATED RINGERS 1,000 ML 42 ML IV ×2 (00:11→05:31)
[2024-02-26] MEDS: OXYTOCIN PREMIX 30 UNIT/500 ML PLAST..BAG 100 UNIT IV (01:00)
[2024-02-26] MEDS: MAGNESIUM SULFATE 4 GM/100 ML PIGGYBACK IV (01:21)
[2024-02-26] MEDS: MAGNESIUM SULFATE 20 GM/500 ML IV.SOLN IV ×3 (01:44→19:51)
[2024-02-26] MEDS: KETOROLAC 30 MG/ML VIAL IV ×3 (05:31→17:42)
[2024-02-26 06:32] LABS: Add Manual Diff / Slide Review NO; Basophils Absolute Auto 0 /uL (0-100); Basophils Percent Auto 0.1 % (0-2); Eosinophils Absolute Auto 0 /uL (0-450); Hematocrit 33.8 % (36-46); Hemoglobin 11.4 g/dL (12.0-16.0); Lymphocytes Absolute Auto 1000 /uL (1100-4500); Lymphocytes Percent Auto 6.2 % (25-40); Mean Corpuscular HGB Conc 33.8 % (30-36); Mean Corpuscular Hemoglobin 29.9 PG (26-34); Mean Corpuscular Volume 88.4 fL (80-100); Monocytes Absolute Auto 600 /uL (0-900); Monocytes Percent Auto 3.7 % (3-14); Neutrophils Absolute Auto 14800 /uL (1500-7000); Platelet Count 213 X10^3/uL (150-400); Red Blood Cell Count 3.82 X10^6/uL (4.0-5.2); Red Cell Distribution Width 13.2 % (11.6-14.8); White Blood Cell Count 16.5 X10^3/uL (4.5-11.0)
[2024-02-26 07:00] LABS: Alanine Aminotransferase 18 IU/L (<35); Aspartate Aminotransferase 23 IU/L (14-36); Blood Urea Nitrogen 4 mg/dL (7-17); Calcium 7.7 mg/dL (8.4-10.2); Carbon Dioxide 18 mmol/L (22-32); Chloride 103 mmol/L (98-107); Estimated Glomerular Filt Rate > 60 mL/min (>60); Glucose 138 mg/dL (70-100); HEMOLYSIS < 15 (0-50); Sodium 129 mmol/L (137-145)
[2024-02-26 07:06] LABS: Magnesium 4.4 mg/dL (1.6-2.3)
[2024-02-26] MEDS: ACETAMINOPHEN 325 MG TABLET 650 MG PO ×2 (08:31→14:40)
[2024-02-26] MEDS: DOCUSATE 100 MG CAPSULE PO (08:31)
[2024-02-26] MEDS: OXYCODONE IR 10 MG TABLET PO ×4 (08:31→22:10)
[2024-02-26] MEDS: PRENATAL VIT,CALC/IRON/FOLIC 1 TABLET 1 TAB PO (08:31)
--- NOTE | 2024-02-26 11:50 | P.PNOB_ITS ---
Subjective - OB Subjective Patient comments: pain well controlled (With 10 mg of oxycodone), tolerating diet and flatus present baby status: bottle feeding well (some jitters) Date Patient Seen: 02/26/24 Time Patient Seen: 11:50 Interval history: 28-year-old 1 para 0101 postop day # 0-1 status post a primary low- transverse section due to severe preeclampsia. Patient on pain meds prior to admission. Requiring 10 mg of oxycodone. Had TAPS performed at the end of the case. No nausea or vomiting. No headache. Passing flatus. On 2 g of magnesium sulfate. Exam Vital Signs (past 8 hours): Oxygen Delivery Method Room Air Narrative Exam Narrative: Generally: Patient is sitting up in bed, no acute distress Lungs: Clear to auscultation bilaterally Cardiovascular: Regular rate and rhythm Fundus: Firm at U -2 Incision: Clean dry and intact with Aquacel dressing Extremities: 1+ edema, 2+ DTRs, no clonus Objective Labs 02/26/24 06:17 02/26/24 06:17 Labs: Laboratory Results - last 24 hr 02/25/24 02/25/24 02/25/24 19:25 19:40 21:24 WBC 11.6 H 12.1 H RBC 4.27 4.45 Hgb 12.7 13.3 Hct 37.3 39.3 MCV 87.3 88.3 MCH 29.7 30.0 MCHC 34.0 34.0 RDW 13.8 13.5 Plt Count 223 249 Neut % (Auto) 70.0 70.2 Lymph % (Auto) 19.6 L 20.3 L [place] % (Auto) 9.0 8.1 Eos % (Auto) 0.7 L 0.7 L Baso % (Auto) 0.7 0.7 Neut # (Auto) 8100 H 8500 H Lymph # (Auto) 2300 2500 [place] # (Auto) 1000 H 1000 H Eos # (Auto) 100 100 Baso # (Auto) 100 100 Sodium 134 L Potassium 3.9 Chloride 103 Carbon Dioxide 19 L BUN 5 L Creatinine 0.52 Estimated GFR > 60 BUN/Creatinine Ratio 9.6 Glucose 85 Calcium 9.4 Magnesium Total Bilirubin 0.4 AST 21 ALT 17 Alkaline Phosphatase 86 Total Protein 6.8 Albumin 3.7 Globulin 3.1 Albumin/Globulin Ratio 1.2 Urine Color Yellow Urine Appearance Clear Urine pH 7.0 Ur Specific [place] 1.015 Urine Protein Negative Urine Glucose (UA) Negative Urine Ketones Negative Urine Occult Blood Negative Urine Nitrate Negative Urine Bilirubin Negative Urine Urobilinogen 0.2 Ur Leukocyte Esterase Negative Urine RBC None seen Urine WBC 1-5/hpf Ur Squamous Epith Cells 1-5 /hpf Urine Bacteria Moderate (10-30) H Ur Culture Indicated? Cult not indicated Vol Urine Centrifuged 10ml (spun) U Random Total Protein 26 H Urine Creatinine 71.85 Protein/Creatinin Ratio 0.36 Blood Type O Positive Antibody Screen Negative 02/26/24 06:17 WBC 16.5 H RBC 3.82 L Hgb 11.4 L Hct 33.8 L MCV 88.4 MCH 29.9 MCHC 33.8 RDW 13.2 Plt Count 213 Neut % (Auto) 90.0 H Lymph % (Auto) 6.2 L [place] % (Auto) 3.7 Eos % (Auto) 0.0 L Baso % (Auto) 0.1 Neut # (Auto) 21779 H Lymph # (Auto) 1000 L [place] # (Auto) 600 Eos # (Auto) 0 Baso # (Auto) 0 Sodium 129 L Potassium 4.0 Chloride 103 Carbon Dioxide 18 L BUN 4 L Creatinine 0.50 L Estimated GFR > 60 BUN/Creatinine Ratio 8.0 Glucose 138 H Calcium 7.7 L Magnesium 4.4 H Total Bilirubin AST 23 ALT 18 Alkaline Phosphatase Total Protein Albumin Globulin Albumin/Globulin Ratio Urine Color Urine Appearance Urine pH Ur Specific [place] Urine Protein Urine Glucose (UA) Urine Ketones Urine Occult Blood Urine Nitrate Urine Bilirubin Urine Urobilinogen Ur Leukocyte Esterase Urine RBC Urine WBC Ur Squamous Epith Cells Urine Bacteria Ur Culture Indicated? Vol Urine Centrifuged U Random Total Protein Urine Creatinine Protein/Creatinin Ratio Blood Type Antibody Screen Assessment & Plan Plan day: 1 Comments: Increase magnesium sulfate continuous drip to 2.5 gm/hour Recheck magnesium at 6pm Tight bra as pt is not Time-Based Coding :: [TOTAL MINUTES] spent with patient and on the chart (including review of chart, obtaining history, exam, reviewing outside data, placing orders, documenting exam and treatment plan, and counseling patient) on [DATE].
[2024-02-26 18:38] LABS: Magnesium 6.2 mg/dL (1.6-2.3)
[2024-02-26] MEDS: TIZANIDINE 4 MG TABLET 2 MG PO (22:08)
[2024-02-26] MEDS: METOPROLOL ER 50 MG TABLET PO (22:12)
[2024-02-26] MEDS: QUETIAPINE 100 MG TABLET 200 MG PO (22:13)
[2024-02-26] MEDS: PROPRANOLOL 10 MG TABLET PO (22:13)
[2024-02-26] MEDS: METFORMIN HCL 500 MG TABLET PO (22:21)
[2024-02-26] MEDS: FLUoxetine 20 MG CAPSULE 80 MG PO (22:31)
[2024-02-27] MEDS: IBUPROFEN 600 MG TABLET PO ×4 (00:23→19:29)
[2024-02-27] MEDS: OXYCODONE IR 10 MG TABLET PO ×5 (02:36→19:54)
[2024-02-27] MEDS: ACETAMINOPHEN 325 MG TABLET 650 MG PO ×3 (04:35→19:29)
--- NOTE | 2024-02-27 06:11 | P.PNOB_ITS ---
Subjective - OB Subjective Patient comments: no complaints, pain well controlled, tolerating diet, flatus present and other (Voided without the catheter) [place] baby status: bottle feeding well (Some jitters) Date Patient Seen: 02/27/24 Time Patient Seen: 06:11 Interval history: Postop day # 1-2 status post section for severe preeclampsia. Patient had previously been scheduled for a primary section in March. Magnesium sulfate came off at 1:00 a.m.. Patient has been able to void without the catheter. No headaches or visual changes. No right upper quadrant pain. Baby is bottle feeding. Exam Vital Signs (past 8 hours): Oxygen Delivery Method Room Air Narrative Exam Narrative: Generally: Patient is sitting up in bed, no acute distress Lungs: Clear to auscultation bilaterally Cardiovascular: Regular rate and rhythm Fundus: Firm at U -2 Incision: Clean dry and intact with Aquacel dressing Extremities: Trace edema, 1+ DTRs, no clonus Objective Labs 02/26/24 06:17 02/26/24 06:17 Labs: Laboratory Results - last 24 hr 02/26/24 02/26/24 06:17 18:05 WBC 16.5 H RBC 3.82 L Hgb 11.4 L Hct 33.8 L MCV 88.4 MCH 29.9 MCHC 33.8 RDW 13.2 Plt Count 213 Neut % (Auto) 90.0 H Lymph % (Auto) 6.2 L [place] % (Auto) 3.7 Eos % (Auto) 0.0 L Baso % (Auto) 0.1 Neut # (Auto) 02234 H Lymph # (Auto) 1000 L [place] # (Auto) 600 Eos # (Auto) 0 Baso # (Auto) 0 Sodium 129 L Potassium 4.0 Chloride 103 Carbon Dioxide 18 L BUN 4 L Creatinine 0.50 L Estimated GFR > 60 BUN/Creatinine Ratio 8.0 Glucose 138 H Calcium 7.7 L Magnesium 4.4 H 6.2 H* AST 23 ALT 18 Assessment & Plan Plan day: 1 Comments: We will keep patient overnight to continue to monitor blood pressure Anticipate discharge tomorrow morning Time-Based Coding :: [TOTAL MINUTES] spent with patient and on the chart (including review of chart, obtaining history, exam, reviewing outside data, placing orders, documenting exam and treatment plan, and counseling patient) on [DATE].
[2024-02-27] MEDS: ONDANSETRON 4 MG ODT PO (11:34)
[2024-02-27] MEDS: DOCUSATE 100 MG CAPSULE PO (12:27)
[2024-02-27] MEDS: METFORMIN HCL 500 MG TABLET PO ×2 (13:17→20:35)
[2024-02-27] MEDS: PRENATAL VIT,CALC/IRON/FOLIC 1 TABLET 1 TAB PO (13:17)
[2024-02-27 15:31] VITALS: TEMP 37.1
[2024-02-27] MEDS: QUETIAPINE 100 MG TABLET 200 MG PO (20:32)
[2024-02-27] MEDS: TIZANIDINE 4 MG TABLET 2 MG PO (20:33)
[2024-02-27 20:34] VITALS: BP 152/99; PULSE 77
[2024-02-27] MEDS: METOPROLOL ER 50 MG TABLET PO (20:34)
[2024-02-27] MEDS: PROPRANOLOL 10 MG TABLET PO (20:39)
[2024-02-28] MEDS: OXYCODONE IR 10 MG TABLET PO ×3 (00:25→08:43)
[2024-02-28] MEDS: ACETAMINOPHEN 325 MG TABLET 650 MG PO (04:30)
--- NOTE | 2024-02-28 07:57 | P.DS_ITS ---
Discharge Providers Provider Date of admission: 02/25/24 19:02 Discharge Date: 02/28/24 Primary care physician: Kiersten Bangura MD Consults: 02/26/24 00:32 Consult to Professor Criminal Justice Routine Comment: Discharge provider: Iesha Gonzales MD Summary Hospital Course Date Patient Seen: 02/28/24 Time Patient Seen: 07:57 Diagnoses: 36 weeks gestation Severe preeclampsia Primary C section Non reassuring FHR tracing Hospital Course: Patient is a 28 year old who presented on 02/25/24 with headache and elevated blood pressures. She was found to have severe preeclampsia. The FHR tracing was a Category 2. She had a primary C section scheduled for 39 weeks gest. She underwent a primary C section without complication. She was placed on magnesium sulfate for 24 hours. Her BP's remained stable. No further headaches. Her postoperative/ course were unremarkable. She tolerated a diet, she did not have any nausea/vomiting, she is ambulating independently. She is bottlefeeding. Peripartum Data Infant Delivery Method: Section Procedures: Spinal anesthesia Primary C section Magnesium sulfate complications: none 1: Gender: Male Status at Discharge Cognitive/behavioral status at discharge: oriented Functional status at discharge: independent ambulation Overall status at discharge: patient is progressing back to baseline Time Spent with Patient Time attestation: Total time spent providing and/or coordinating discharge services: Time spent: Less than 30 minutes Objective Labs 02/26/24 06:17 02/26/24 06:17 Exam Vital Signs (past 8 hours): Oxygen Delivery Method Room Air Narrative Exam Narrative: Gen: NAD Lungs: CTA bilat CV: RRR Fundus: Firm U/-2 Incision: C/D/I with Aquacel Ext: trace edema, 1+ DTR's Discharge Plan Discharge Plan Patient Disposition: Home Provider Discharge Comment: Call with fever, chills, redness or drainage around the incision or bleeding vaginally more than a pad in an hour Ibuprofen 600mg every 6 hours as needed Tylenol 650mg every 6 hours as needed Stool softners as needed Discharge orders & Medications Prescriptions: New oxycodone 10 mg tablet 10 mg PO Q6H PRN (Reason: pain) Qty: 30 0RF ibuprofen 600 mg tablet 600 mg PO Q6H PRN (Reason: pain or cramping) Qty: 30 2RF docusate sodium [Colace] 100 mg capsule 200 mg PO DAILY Qty: 30 0RF Continued vit-ferrous sulfat-FA 27 mg iron- 0.8 mg tablet PO DAILY fluoxetine 40 mg capsule 80 mg PO BEDTIME diazepam 5 mg tablet 2 mg PO BEDTIME metformin 500 mg tablet 500 mg PO BID metoprolol succinate 50 mg tablet extended release 24 hr 50 mg PO DAILY quetiapine 100 mg tablet 200 mg PO ONCE PM tizanidine 2 mg tablet 2 mg PO ONCE PM propranolol 10 mg tablet 10 mg PO 3XD Discontinued ondansetron 4 mg tablet,disintegrating 4 mg PO Q6H PRN (Reason: nausea and vomiting in ) Qty: 30 1RF promethazine 25 mg tablet 25 mg PO .COMPLEX PRN (Reason: nausea) Qty: 30 0RF Rx Instructions: may take 1-2 tabs every 6 hours as needed folic acid 1 mg tablet 3 mg PO QPM Patient Comments: TK ONE TO THREE TS PO QD oxycodone-acetaminophen 10-325 mg tablet 1 tab PO Q8H PRN (Reason: pain) Follow up/Referrals: Iesha Gonzales MD [Physician] - (Appt at 1115 on Tuesday to have Aquacel removed Needs 6 wk exam, TuesdayApril 06 if possible) Diet/Activity/Treatments Diet: Regular Activity: No heavy lifting Nothing in the vagina for 6 weeks Skin/Wound/Dressing Care Report to your healthcare provider any signs of infection, such as:: chills, fever, increased pain, unusual drainage and unusual redness Dressing: Do not remove Visit Report/Discharge Packet Instructions: DI for , DI for Prescription Opioid Use Stand Alone Forms: Patient Portal/API, Stroke Signs & Symptoms Discharge Data Primary Care Provider: Kiersten Bangura
[2024-02-28] MEDS: PRENATAL VIT,CALC/IRON/FOLIC 1 TABLET 1 TAB PO (08:43)
[2024-02-28] MEDS: DOCUSATE 100 MG CAPSULE PO (08:43)
[2024-02-28] MEDS: METFORMIN HCL 500 MG TABLET PO (08:43)
== END 2024-02-28 09:05 | disposition home or self-care (01) | DRG 788 ==
PROVIDERS: Obstetrics & Gynecology; Admitting Provider Student in an Organized Health Care Education/Training Program; PCP Family Medicine; Referring Provider Student in an Organized Health Care Education/Training Program; Visit Provider Student in an Organized Health Care Education/Training Program
PROC: 10D00Z1 Extraction of Products of Conception, Low, Open Approach (ICD-10-PCS; CPT 59514; principal; 2024-02-25 22:00)
DX: O14.14 Severe pre-eclampsia complicating childbirth (principal); O99.892 Other specified diseases and conditions complicating childbirth; M45.9 Ankylosing spondylitis of unspecified sites in spine; Z3A.36 36 weeks gestation of pregnancy; Z37.0 Single live birth; O76 Abnormality in fetal heart rate and rhythm complicating labor and delivery; O60.03 Preterm labor without delivery, third trimester; O99.213 Obesity complicating pregnancy, third trimester; E66.9 Obesity, unspecified; O99.413 Diseases of the circulatory system complicating pregnancy, third trimester; I99.9 Unspecified disorder of circulatory system; Z3A.35 35 weeks gestation of pregnancy
CPT/HCPCS: 36415; 59025; 59050; 80048; 80053; 81001; 82570; 83735; 84156; 84450; 84460; 84550; 85025; 86850; 86900; 86901; G0378; G0379; J0136; J0690; J1885; J2590; J3475

== ENCOUNTER → 2024-06-15 13:25 | Outpatient (CLI) | payer MEDICARE, OTHER, SELFPAY ==
--- NOTE | 2024-06-15 13:27 | DI.US.S_ITS ---
PROCEDURE: US ABDOMEN LIMITED INDICATIONS: Pain in scar 3 months PP TECHNIQUE: Real-time scanning was performed of the abdomen, with image documentation. COMPARISON: None. FINDINGS: Focused ultrasound examination of lower anterior abdominal wall at the section scar area shows no discrete soft tissue mass or fluid collection. No enlarged lymph nodes. IMPRESSION: No abnormality is seen in anterior abdominal wall at the region of scar. Dictated by: Stephen Tan M.D. on 06/15/2024 at 17:04 Approved by: Stephen Tan M.D. on 06/15/2024 at 17:05
== END ==
PROVIDERS: PCP Family Medicine; Referring Provider Obstetrics & Gynecology; Visit Provider Obstetrics & Gynecology
DX: R10.9 Unspecified abdominal pain (principal); Z98.891 History of uterine scar from previous surgery
CPT/HCPCS: 76705

== ENCOUNTER → 2024-08-21 13:44 | Outpatient (CLI) | payer MEDICARE, OTHER, SELFPAY ==
--- NOTE | 2024-08-21 13:46 | DI.RAD.S_ITS ---
PROCEDURE: XR FOOT LT MIN 3V INDICATIONS: Left foot injury TECHNIQUE: 3 views of the foot were acquired. COMPARISON: None. FINDINGS: Bones: No fractures or dislocations. Hardware noted consisting of 2 screws within the 1st tarsometatarsal joint status post arthrodesis. Angulation about the 1st metatarsophalangeal joint measures approximately 28?. No suspicious bony lesions. Soft tissues: No tibiotalar joint effusion. Achilles tendon appears normal. IMPRESSION: Postsurgical change status post 1st TMT arthrodesis without evidence of hardware complication or acute osseous abnormality. Moderate degree hallux valgus. Dictated by: Jimmie Gtz M.D. on 08/21/2024 at 22:36 Approved by: Jimmie Gtz M.D. on 08/21/2024 at 22:37
== END ==
LOC: RAD 13:45
PROVIDERS: PCP Family Medicine; Referring Provider Nurse Practitioner Family; Visit Provider Nurse Practitioner Family
DX: S90.32XA Contusion of left foot, initial encounter (principal); M20.12 Hallux valgus (acquired), left foot; X58.XXXA Exposure to other specified factors, initial encounter; Z98.1 Arthrodesis status
CPT/HCPCS: 73630